=== PATIENT | female | born 1955 | race Caucasian/White ===

== ENCOUNTER 2018-10-18 11:15 | Outpatient (REF) | payer BC, SELFPAY ==
--- NOTE | 2018-10-18 17:10 | PAPFT_PTH ---
PATIENT: Estephania Rice [facility] U#:[id number] AGE/SX: 63/F ROOM: RE10/18/[address]: Juaquin Iniguez : 1955 BED: DIS: 10/18/2018 SPEC #: [id number] RECD: 10/22/18 13:05 STATUS: KATHERYN REJose Rafael #: [id number] JONATAN: 10/18/18 17:[address]: Juaquin Iniguez DEPT: [facility] Cytology RECD BY: Jackie Degroot Tissues: 1 - CX/ENDOCX FOR PAP SMEARS Procedures: PAP THIN PREP/UVM Screening Comments: [id number] (UNSATISFACTORY FOR EVALUATION)
== END 2018-10-18 11:35 ==
LOC: NCHCN 11:15
PROVIDERS: PCP Internal Medicine; Visit Provider Internal Medicine
DX: Z12.4 Encounter for screening for malignant neoplasm of cervix (principal); Z01.419 Encounter for gynecological examination (general) (routine) without abnormal findings; Z11.51 Encounter for screening for human papillomavirus (HPV)
CPT/HCPCS: 88142; 87624

== ENCOUNTER 2018-10-22 09:53 | Outpatient (REF) | payer BC, SELFPAY ==
[2018-10-22 20:57] LABS: TSH 1.89 uIU/mL (0.358-3.74)
== END 2018-10-22 10:13 ==
LOC: NCHCN 09:53
PROVIDERS: PCP Internal Medicine; Visit Provider Internal Medicine
DX: F41.9 Anxiety disorder, unspecified (principal); Z00.00 Encounter for general adult medical examination without abnormal findings
CPT/HCPCS: 84443

== ENCOUNTER 2020-09-17 16:44 | Outpatient (REF) | payer MEDICARE, BC, SELFPAY ==
[2020-09-17 18:15] LABS: HCT 42.2 % (36.0-46.0); HGB 13.8 g/dL (11.2-15.7); MCH 29.7 pg (27.0-33.0); MCHC 32.7 % (32.0-36.0); MCV 90.8 fL (80-95); Platelet Count 364 10^3/uL (130-400); RBC 4.65 10^6/uL (3.93-5.22); RDW 11.9 % (11.7-14.6); RDW-SD 39.7 fL; WBC 7.35 10^3/uL (4.4-10.8)
[2020-09-17 18:17] LABS: ESR 36 mm//hr (0-30)
[2020-09-17 18:35] LABS: ALT 23 U/L (14-59); AST 14 U/L (15-37); Albumin 3.4 g/dL (3.4-5.0); Alkaline Phosphatase 69 U/L (46-116); Anion Gap 7.3 mmol/L (3-11); BUN 18 mg/dL (7-18); Bilirubin, Total 0.2 mg/dL (0.2-1.0); C-Reactive Protein 0.85 mg/dL (0.0-0.3); CO2 30.7 mmol/L (21.0-32.0); CREATININE 0.9 mg/dL (0.55-1.02); Chloride 106 mmol/L (98-107); Glucose 89 mg/dL (74-106); Potassium 4.6 mmol/L (3.5-5.1); Sodium 144 mmol/L (136-145); TSH 1.43 uIU/mL (0.36-3.74); Total Protein 6.7 g/dL (6.4-8.2)
== END 2020-09-17 16:45 | disposition home or self-care (01) ==
LOC: NCHCN 16:44
PROVIDERS: PCP Internal Medicine; Visit Provider Internal Medicine
DX: M35.3 Polymyalgia rheumatica (principal); R53.83 Other fatigue
CPT/HCPCS: 80053; 85027; 85652; 84443; 86140

== ENCOUNTER 2020-10-28 09:43 | Outpatient (REF) | payer MEDICARE, BC, SELFPAY ==
--- OUTSIDE RECORDS SUMMARY | 2020-10-28 09:47 | XMS_ITS ---
:1955 Author Care Team Providers Name Role Phone JJ JACOME MD Primary Care Provider [phone] DANYEL BETH MD General Surgeon [phone] Allergies Code Code System Name Reaction Severity Status Onset 723 RxNorm Amoxicillin ? ? Active ? Sulfa Hives ? Active ? (Sulfonamide Antibiotics) Medications Name Status Start Date Stop Date ? ? cholecalciferol (vitamin D3) Completed ? 1000 units daily Estrace 0.01% (0.1 mg/gram) vaginal cream Completed 201501/22/2017 applicator Cream Cream: daily ibuprofen 800 mg tablet Active 10/13/2020 Not avai lable Take 1 tablet 3 times a day by oral route as needed. Prempro 0.3 mg-1.5 mg tablet Completed 10/25/200406/2004 Temovate 0.05 % topical ointment Completed 06/22/2014 09/03/2014 1 (one) Application(s): As directed Vitamin C 500 mg chewable tablet Completed ? 10/13/2020 Take 2 tablets every day by oral route. Notes: Med Rec Updated 10/13/2020 -laf. No Maintenance home meds Problems Name Status Onset Date Source ? Anxiety Disorder Active 12/05/2018 ? Impacted Cerumen Active 12/05/2018 ? 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 Bronchitis Active 12/05/2018 ? Disorder of Urinary Tract Active 12/05/2018 ? Vitiligo Active 12/05/2018 ? Vasovagal Syncope Active 12/05/2018 ? Genuine Stress Incontinence Active ? Hist ory Menopausal Symptom Active ? History Disorder of Bone Active ? History Specialized Medical Examination Active ? History Procedures Date Name Performed by ? 01/02/2019 Colonoscopy Information not avai lable Notes: screening colonoscopy; 003 normal colonoscopy ? Appendectomy Information not avai lable Notes: Age 19 Results Lab Results Date Name Specimen Result Interpretation Description Value Range Status Address ? 10/13/2020 EKG Done by ? No ? ? ? N [facility] ED observation Hospi shay Lab recorded. (Telegraph Lineman al): [address] 01/22/2017 Pap Test, MISC ? Hpv see ? Final [facility] Thinprep, report Hospita l Lab Cervical (Interna l): [address] ? ? MISC ? Pap see ? Final [place] try report [facility] L [facility] (Internal) : [address] ? ? MISC ? Report (added) ? Corrected [place] results Hospital Lab below (Internal) : [address] Past Encounters None recorded. Social History Tobacco Smoking Status Never Smoker Vaccine List Notes: Moderna #2 on 10/12/20 Plan of Care Reminders Provider Appointments None ? ? recorded. Lab None ? ? recorded. Referral None ? ? recorded. Procedures None ? ? recorded. Surgeries None ? ? recorded. Imaging None ? ? recorded. Vitals 12/12/2018 12:45PM Office 15 Height 161.29 cm 10/21/2018 Height Weight BMI Blood Pressure 161.29 cm 56.7 kg 21.8 kg/m2 112/70 mm[Hg] 01/22/2017 Height Weight Blood Pressure 160.66 cm 56.7 kg 108/68 mm[Hg] 01/08/2017 Weight Blood Pressure 56.88 kg 148/88 mm[Hg] 09/02/2015 Height Weight Blood Pressure 160.66 cm 55.79 kg 124/80 mm[Hg] 09/03/2014 Height Weight Blood Pressure 160.66 cm 57.15 kg 118/60 mm[Hg] 08/27/2013 Height Weight Blood Pressure 160.66 cm 56.06 kg 110/60 mm[Hg] 08/21/2012 Height Weight Blood Pressure 160.66 cm 56.15 kg 110/62 mm[Hg] 08/17/2011 Height Weight Blood Pressure 160.66 cm 57.61 kg 100/64 mm[Hg] 08/11/2010 Height Weight Blood Pressure 161.29 cm 57.61 kg 112/64 mm[Hg] 08/04/2009 Weight Blood Pressure 57.15 kg 112/62 mm[Hg] 06/30/2008 Height Weight Blood Pressure 161.29 cm 58.06 kg 110/64 mm[Hg] 10/23/2006 Weight Blood Pressure 54.43 kg 100/60 mm[Hg] 10/02/2005 Height Weight Blood Pressure 162.56 cm 54.43 kg 100/60 mm[Hg] 09/30/2004 Height Weight Blood Pressure 162.56 cm 53.52 kg 100/66 mm[Hg]
[2020-10-29 11:17] LABS: Lyme Ab w Rflx to Lyme Confirm Negative (Negative)
== END 2020-10-28 09:44 | disposition home or self-care (01) ==
LOC: NCHCN 09:43
PROVIDERS: PCP Internal Medicine; Visit Provider Internal Medicine
DX: M79.7 Fibromyalgia (principal)
CPT/HCPCS: 86618

== ENCOUNTER 2020-11-18 16:52 | Outpatient (REF) | payer MEDICARE, BC, SELFPAY ==
[2020-11-18 18:18] LABS: ESR 34 mm/hr (0-30); HCT 44.3 % (36.0-46.0); HGB 14.3 g/dL (11.2-15.7); MCH 28.1 pg (27.0-33.0); MCHC 32.3 % (32.0-36.0); MCV 87.2 fL (80-95); Platelet Count 395 10^3/uL (130-400); RBC 5.08 10^6/uL (3.93-5.22); RDW 11.9 % (11.7-14.6); RDW-SD 38.6 fL; WBC 8.66 10^3/uL (4.4-10.8)
[2020-11-18 18:24] LABS: C-Reactive Protein 1.01 mg/dL (0.0-0.3); Magnesium 2.2 mg/dL (1.8-2.4)
[2020-11-18 18:34] LABS: Iron 24 ug/dL (50-170); Total Iron Binding Capacity 236 ug/dL (250-450); Transferrin Sat 10 % (15-50)
[2020-11-19 16:17] LABS: Rheumatoid Factor <8.6 IU/mL (<12.0)
[2020-11-19 19:33] LABS: Creatine Kinase 60 U/L (26-192)
[2020-11-22 09:39] LABS: Cyclic Citrullinated Peptide <2.5 U/mL (<5.0)
[2020-11-22 15:25] LABS: ANA Interpretation Positive (Negative); ANA Titer Pattern 1:160 Homogeneous
== END 2020-11-18 16:53 | disposition home or self-care (01) ==
LOC: NCHCN 16:52
PROVIDERS: PCP Internal Medicine; Visit Provider Internal Medicine
DX: M79.7 Fibromyalgia (principal); M35.3 Polymyalgia rheumatica; R03.0 Elevated blood-pressure reading, without diagnosis of hypertension; G44.209 Tension-type headache, unspecified, not intractable; R53.1 Weakness; R79.89 Other specified abnormal findings of blood chemistry
CPT/HCPCS: 82550; 85027; 85652; 86200; 83540; 83550; 83735; 86038; 86140; 86431

== ENCOUNTER 2021-03-03 08:42 | Outpatient (REF) | payer MEDICARE, BC, SELFPAY ==
[2021-03-02 21:37] LABS: Glucose 148 mg/dL (74-106)
== END 2021-03-03 08:43 | disposition home or self-care (01) ==
LOC: NCHCN 08:42
PROVIDERS: PCP Internal Medicine; Visit Provider Internal Medicine
DX: I10 Essential (primary) hypertension (principal); R73.03 Prediabetes; M35.3 Polymyalgia rheumatica
CPT/HCPCS: 82947; 86341; 83036

== ENCOUNTER 2021-07-06 15:25 | Outpatient (REF) | payer MEDICARE, BC, SELFPAY ==
--- OUTSIDE RECORDS SUMMARY | 2021-07-06 15:29 | XMS_ITS ---
:1955 Author Care Team Providers Name Role Phone JJ JACOME MD Primary Care Provider [phone] DANYEL BETH MD General Surgeon [phone] Allergies Code Code System Name Reaction Severity [...] Description Value Range Status Address ? 10/13/2020 CBC W/ BLD High Wbc 11.9 10*3/uL 5.0-10.0 Final [place] Diff 10*3/uL [facility] L [facility] (Internal) : [address] ? ? BLD ? Rbc 5.17 10*6/uL 4.10-5.30 Final N orth 10*6/uL [facility] Hospital L [facility] (Internal) : [address] ? ? BLD ? Hgb 14.9 g/dL 12.0-16.0 Final Nort h g/dL [facility] (Internal) : [address] ? ? BLD ? Hct 45.9 % 37.0-47.0 Final [place] % [facility] (Internal) : [address] ? ? BLD ? Mcv 88.8 fL 80.0-96.0 Final [place] fL [facility] (Internal) : [address] ? ? BLD ? Mch 28.8 pg 26.0-32.0 Final [place] pg [facility] (Internal) : [address] ? ? BLD ? Mchc 32.5 g/dL 31.0-35.0 Final Nort h g/dL [facility] (Internal) : [address] ? ? BLD ? Rdw 11.9 % 11.5-14.5 Final [place] [facility] (Internal) : [address] ? ? BLD ? Plt 339 10*3/uL 130-450 Final Nort h 10*3/uL [facility] (Internal) : [address] 10/13/2020 CMP, Serum S High g/r 159 mg/dL 74-106 Final [place] or Plasma mg/dL [facility] (Internal) : [address] ? ? S High Bun 18 mg/dL 7-17 Final [place] mg/dL [facility] (Internal) : [address] ? ? S ? Crea 0.70 mg/dL 0.52-1.04 Final Nor th mg/dL [facility] (Internal) : [address] ? ? S ? Ca 9.6 mg/dL 8.4-10.2 Final [place] mg/dL [facility] (Internal) : [address] ? ? S ? Na 141 mmol/L 137-145 Final [place] mmol/L [facility] (Internal) : [address] ? ? S ? K 4.1 mmol/L 3.5-5.1 Final [place] mmol/L [facility] (Internal) : [address] ? ? S ? Cl 102 mmol/L 98-107 Final [place] mmol/L [facility] (Internal) : [address] ? ? S ? Tco2 27.0 mmol/L 22.0-30.0 Final No rth mmol/L [facility] (Internal) : [address] ? ? S ? Tp 7.4 g/dL 6.3-8.2 Final [place] g/dL [facility] (Internal) : [address] ? ? S ? Alb 4.3 g/dL 3.5-5.0 Final [place] g/dL [facility] (Internal) : [address] ? ? S ? Tbil 0.7 mg/dL 0.2-1.3 Final [place] mg/dL [facility] (Internal) : [address] ? ? S ? Alp 69 U/L 38-126 Final [place] U/L [facility] L [facility] (Internal) : [address] ? ? S ? Alt 18 U/L 9-52 U/L Final [place] (Sgpt) [facility] L [facility] (Internal) : [address] ? ? S High Ast 48 U/L 14-36 U/L Final [place] (Sgot) [facility] (Internal) : [address] t 10/13/2020 Differenti BLD High Polys 94 % 40-75 % Final N orth al, [place] [facility], Hospital Lab Blood (Internal) : [address] ? ? BLD ? Bands 0 % 0-5 % Final [facility] L [facility] (Internal) : [address] ? ? BLD Low Lymphs 4 % 20-50 % Final [facility] L [facility] (Internal) : [address] ? ? BLD Low [place] 1 % 2-10 % Final [facility] (Internal) : [address] ? ? BLD ? Eos 0 % 0-6 % Final [facility] (Internal) : [address] ? ? BLD ? Baso 1 % 0-1 % Final [facility] Hospital L [facility] (Internal) : [address] ? ? BLD ? Atyp 0 % ? Final [facility] Hospital L [facility] (Internal) : [address] ? ? BLD ? Plts, adequate adequate Final [place] Est. [facility] (Internal) : [address] ? ? BLD ? RBC normal normal Final [place] Morpholog [facility] y Hospital L ab (Internal) : [address] 10/13/2020 Neutrophil BLD ? Anc-manu 11.19 ? Final [place] Count, al 10*3/uL [facility] Lab (Anc), (Internal) : Blood [address] 10/13/2020 Nlr-manual BLD High Nlr - 23.50 0.00-3.20 Final [facility] Hospital L [facility] (Internal) : [address] 10/13/2020 Respirator FLUID ? Final microbiology ? Fin al [place] y Virus results [facility] (Internal) : [address] 10/13/2020 EKG Done ? No ? ? ? [facility] on Hospital L ab recorded. (Exhibit Designer al): [address] 01/22/2017 Pap Test, MISC ? Hpv see report ? [facility] [place] [facility] [address] ? ? MISC ? Pap see report ? Final [facility] Hospital L [facility] (Internal) : [address] ? ? MISC ? Report (added) ? Corrected [place] results [facility] below Hospital L ab (Internal) : [address] Past Encounters None recorded. Social History Tobacco Smoking Status Never Smoker Vaccine List Notes: Tonia #2 on 10/12/20 Plan of Care Reminders [...]
[2021-07-06 22:09] LABS: Abs Immature Grans 0.05 10^3/uL (0.0-0.06); Absolute Basophil Count 0.05 10^3/uL (0.0-0.2); Absolute Eosinophil Count 0.05 10^3/uL (0.0-0.7); Absolute Lymphocyte Count 1.17 10^3/uL (1.2-3.4); Absolute Monocyte Count 0.46 10^3/uL (0.1-0.8); Basophils % 0.5; ESR 11 mm/hr (0-30); Eosinophils % 0.5; HGB 16.2 g/dL (11.2-15.7); Immature Grans % 0.5; Lymphocytes % 11.1; MCH 29.5 pg (27.0-33.0); MCHC 31.8 % (32.0-36.0); MCV 92.9 fL (80-95); MPV 9.4 fL (8.0-11.0); Monocytes % 4.3; Neutrophils % 83.1; Nucleated RBC 0 %; Platelet Count 298 10^3/uL (130-400); RBC 5.49 10^6/uL (3.93-5.22); RDW 12.5 % (11.7-14.6); WBC 10.58 10^3/uL (4.4-10.8)
[2021-07-06 22:41] LABS: C-Reactive Protein 0.08 mg/dL (0.0-0.3)
== END 2021-07-06 15:26 | disposition home or self-care (01) ==
LOC: NCHCN 15:25
PROVIDERS: PCP Internal Medicine; Visit Provider Internal Medicine
DX: I10 Essential (primary) hypertension (principal); M35.3 Polymyalgia rheumatica
CPT/HCPCS: 85652; 85025; 86140

== ENCOUNTER 2021-07-15 13:34 | Outpatient (REF) | payer MEDICARE, BC, SELFPAY ==
[2021-07-15 19:14] LABS: HCT 47.9 % (36.0-46.0); HGB 15.1 g/dL (11.2-15.7); MCH 28.9 pg (27.0-33.0); MCHC 31.5 % (32.0-36.0); MCV 91.8 fL (80-95); MPV 9.2 fL (8.0-11.0); Platelet Count 282 10^3/uL (130-400); RBC 5.22 10^6/uL (3.93-5.22); RDW 12.7 % (11.7-14.6); WBC 10.18 10^3/uL (4.4-10.8)
[2021-07-19 10:24] LABS: Erythropoietin 5.8 mIU/mL (2.6 - 18.5)
== END 2021-07-15 13:35 | disposition home or self-care (01) ==
LOC: NCHCN 13:34
PROVIDERS: PCP Internal Medicine; Visit Provider Internal Medicine
DX: I10 Essential (primary) hypertension (principal); D75.1 Secondary polycythemia
CPT/HCPCS: 82668; 85027

== ENCOUNTER → 2021-09-19 00:43 | Outpatient (CLI) | payer MEDICARE, BC, SELFPAY ==
--- NOTE | 2021-09-19 09:15 | DI.NM_ITS ---
APPROVED REPORT Exam: Exercise Treadmill Patient Location: Out-Patient Room/Bed: Stress Nurse: Becca Callaway RN Ordering Provider:JJ JACOME, Contact Number: [phone] BMI: 22.67 Baseline Rhythm: Sinus Rhythm Comment: T wave inversion noted in lead aVL Indications: CHEST PAIN, H/O PAROXYSMAL SVT, HTN Medical History Medical History: Vasodepressor syncope, Anxiety, HTN, Prediabetes, Polymyalgia rheumatica, SVT Cardiac Medications: Pantoprazole, Metoprolol succinate Allergies: Sulfa, amoxicillin Cardiac Risk Factors: FHX of CAD, HTN Previous Cardiac Procedures: None Pretest Chest Pain Characteristics: None Exercise History: Physically active Physical Disabilities: None Lung Sounds: Clear to auscultation Heart Sounds: Regular Stress Test Details Test: Exercise stress testing was performed using a Doe protocol. Nuclear Acquisition: Rest Tc-99m/Stress Tc-99m 1 day Rest Isotope: Tc-99m Sestamibi. Dose: 10.0 Date: 09/19/2021 Injection Time: 0915 Stress Isotope: Tc-99m Sestamibi. Dose: 32.0 Date: 09/19/2021 Injection Time: 1039 HR Resting HR Supine: 64 bpm Max Heart Rate (APMHR): 153.117317 bpm Resting HR Standin bpm Target HR (85% APMHR): 130.737089 bpm Max HR Achieved: 154 bpm % of APMHR: 100.65 Recovery HR: 87 bpm HR response to stress: Normal HR response to stress Comment: Metoprolol succinate held for 36 hours. BP Resting BP Supine: 164/86 mmHg Resting BP Standin/82 mmHg Max BP: 212/68 mmHg Recovery BP: 518/80 mmHg BP response to stress: Normal blood pressure response to stress. Comment: Hypertensive at baseline. ECG Resting ECG: Sinus Rhythm Ectopy: PVCs Comment: T wave inversion noted in lead aVL Stress ECG: Sinus Tachycardia ST Change: No significant ST segment changes noted, Arrhythmia: rare PAC, PVCs Recovery ECG: Sinus Rhythm Recovery ST Change: No significant ST segment changes noted Recovery Arrhythmia: PVCs, couplets Clinical Reason for Termination: Fatigue Stress Symptoms: General Fatigue Exercise duration: 7 min45 sec Highest Stage Reached: Stage 3: 3.4 mph at 14% grade. Exercise capacity: 9.76 METs Hale Treadmill Score: 7 Rate Pressure Product: 06475 Stress ECG Conclusion 1. Resting electrocardiogram was within normal limits 2. Patient exercised on the Doe protocol and completed a workload of 9.76 METS, stopping due to fat igue 3. Normal hemodynamic response to exercise. The patient achieved 100% of predicted heart rate for ag e 4. There was no electrocardiographic evidence of myocardial ischemia 5. Premature ventricular contractions were seen 6. See MPI report Hale Treadmill Score is 7 which is Low risk. Stress Test Summary STAGE Time (mins) Speed (mph) Grade (%) HR BP SYMPTOMS METS Supine 64 164/86 Standing 70 152/82 1 3 1.7 10 114 188/88 4.6 2 6 2.5 12 143 204/90 7 1 min recovery 133 212/68 3 min recovery 95 200/74 6 min recovery 87 158/80 MPI Conclusion Myocardial perfusion is normal without evidence of ischemia or prior infarction EF 79%, normal wall motion Radiologist Interpretation Radiologist agrees with Criminal Records Technician's Interpretation. Radiologist Interpretation by: Ney Pardo MD Interpretation Date/Time: 09/21/2021 13:44:12
== END ==
PROVIDERS: PCP Internal Medicine; Visit Provider Internal Medicine
DX: R07.89 Other chest pain (principal); I10 Essential (primary) hypertension
CPT/HCPCS: 78452; 93016; 93018; 93017

== ENCOUNTER 2021-10-19 09:06 | Outpatient (REF) | payer MEDICARE, BC, SELFPAY ==
[2021-10-19 21:45] LABS: Abs Immature Grans 0.02 10^3/uL (0.0-0.06); Absolute Basophil Count 0.05 10^3/uL (0.0-0.2); Absolute Eosinophil Count 0.12 10^3/uL (0.0-0.7); Absolute Lymphocyte Count 2.35 10^3/uL (1.2-3.4); Absolute Monocyte Count 0.66 10^3/uL (0.1-0.8); Absolute Neutrophil Count 4.09 10^3/uL (1.2-6.7); Basophils % 0.7; Eosinophils % 1.6; HCT 46.5 % (36.0-46.0); Immature Grans % 0.3; Lymphocytes % 32.2; MCHC 32.3 % (32.0-36.0); MCV 93 fL (80-95); MPV 9.7 fL (8.0-11.0); Monocytes % 9.1; Neutrophils % 56.1; Platelet Count 288 10^3/uL (130-400); RDW 14.4 % (11.7-14.6); RDW-SD 48.1 fL; WBC 7.29 10^3/uL (4.4-10.8)
[2021-10-19 21:49] LABS: ESR 8 mm/hr (0-30)
[2021-10-19 22:08] LABS: ALT 31 U/L (14-59); AST 12 U/L (15-37); Albumin 3.8 g/dL (3.4-5.0); Alkaline Phosphatase 48 U/L (46-116); Bilirubin, Direct 0.1 mg/dL (0.0-0.2); Bilirubin, Total 0.3 mg/dL (0.2-1.0); Total Protein 6.4 g/dL (6.4-8.2)
== END 2021-10-19 09:07 | disposition home or self-care (01) ==
LOC: NCHCN 09:06
PROVIDERS: PCP Internal Medicine; Visit Provider Internal Medicine
DX: M35.3 Polymyalgia rheumatica (principal)
CPT/HCPCS: 80076; 85652; 85025; 86140

== ENCOUNTER 2021-11-18 16:23 | Outpatient (REF) | payer MEDICARE, BC, SELFPAY ==
--- OUTSIDE RECORDS SUMMARY | 2021-11-18 16:26 | XMS_ITS | Encounter Summary ---
:1955 Author Care Team Providers Name Role Phone Juaquin Iniguez MD Primary Care Provider [phone] Arik Iniguez MD Community Services Officer [phone] Mj Cota MD General Surgeon [phone] Reason for Visit SVT - Supraventricular Tachycardia; Ches t Pain; New Consult Assessment and Plan Assessment Note Date: October 14, 2021 Referring: Darius Clarke Re: Juaquin Iniguez 66-year-old woman Problems: 1. Syncope. Vagal etiology described in chart. She has a history of occasional lifelong fainting. These episodes preceded by a recognizable prodrome. Most recent episode of syncope: September. 12 hours after receiving her second COVID vaccination. She got up at 2 AM to go to the bathroom. She did not feel right. Bathroom door and hallway are tom r the stairs. She managed to get out of the bathroom however fell down the stairs. Regain consciousness at the bottom of the stairs. Suffered a head laceration. Fainted again in the ER while she was receiving scalp brian. No subsequent events. 2. SVT. Presents to ER August 22, 2021, near [facility], with chest pain and tachycardia. Symptoms started the afternoon prior to ER evaluation. Patient describes a burning sensation. Discomfort substernal. No radi ation. No nausea or diaphoresis. Patient also described a skipping sensation, a steady faster beat. Apparently in the ER patient was in SVT with heart rate 181 bpm. Believe any rhythm strips were retained from this, no EKG obtained. Patient received metoprolol 5 mg IV x1 and converted to sinus rhythm. Sinus rhythm with ventricular trigeminy described in the ER also. She has noted palpitations about 3 to 4 years. She would describe episodes of rapid heart rate lasting 1 to 2 minutes on the order of 1 or so times per month. This apparently proved following diagnosis of PMR. Episode on August 22 was the most protracted episode of palpitation she has experienced. 3. Polymyalgia rheumatica. Diagnosed with polymyalgia rheumatica ab out 1 year ago. Diffuse joint pain. Her activity profile suffered considerably because of this. She became essentially sedentary, busy around the house as described above. She feels that PMR was associated with C OVID vaccine. She is followed by rheumatology in [place]. Has been treated with steroids, has been started on methotrexate. 4. GERD. She has described GERD in the past, burn ing that comes up into her throat. This is similar to what was described on August 22. Late July 2021: She described an episode of dysphagia. She had difficulty swallowing. Symptoms came in past quite quickly. No recurrence. HPI: October 14, 2021. Patient continues t o live with her . 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 She has a very athletic background. 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 She was apparently slated to participate in the [employer] Olympics years ago, scheduling issues precluded her participation in that regard. She is staying busy around the house. Wo rking in the garden. No history of chest discomfort. No short ness of breath. Denies PND orthopnea edema. She does not have a snoring history per se. Palpitations as above. No presyncope or syncope. No bleeding problems. She feels her palpitations have improved considerably since starting beta- melodie. She has had nothing in the way of protracted palpitations or tachycardia. DATA: Cardiac risk factors: Negative tobacco. Positive family history, father [place] aged 65. Positive hypertension. Negative diabetes. Negative cholesterol. Social history: Activity profile as abov e. Negative tobacco. Occasional alcohol. Past medical history: Anxiety. Bronchiti s. UTI. Vertigo. Review of systems: A 10-point review of systems was obtained. Pertinent positives as described in HPI, all others negative. Allergies: Amoxicillin Contrast allergies: Echo: August 23, 2021. LVEF 65-70%. Normal size. No segmental wall motion abnormality. Right ventricle normal. Diastolic indices appear normal for age, no evidence elevated left-sided filling pressures. S inus rhythm. Left atrium normal 23 (34). Right atrium normal. Trace AI. 1?2+ MR. Regurgitant volume 5 mL, regurgitant fraction 11%. ERO 0.1. 1+ TR. Pulmonary pressure 25-35 mmHg. Trivial PI. Mercedez cardium normal. Aortic root normal 3.2. Ascending normal 3.2. Arch normal 2.3. No coarctation. No PDA. IVC normal. E primed 6, 6 (7, 10). E/E prime average 11.2 (14). TR max 2.5 (2.8). Cardiac MRI: Stress: September 19, [address]. [facility]. Amb ulated 7 minutes 45 seconds on the Doe protocol. Stopped because of fatigue. No EKG changes. Normal hemodynamics (exercise blood pressure 212 mmHg systolic). No rmal perfusion. LVEF 79%. No segmental w all motion abnormalities. Negative ischemia. [facility]: Holter: Event monitor: August 23-2021. Baselin e rhythm sinus. Rare single PAC. 16 burst SVT, longest 10 beat duration, fastest 203 bpm. No atrial fibrillation. Occasional single PVC, 1.3% total beat. Rare cou plet. No VT. No significant bradycardia/ block/pause. 3 seconds. No triggered events. No symptoms. Average rate sinus: 72 bpm, range 40-131 bpm. Telemetry: EKG: August 22, 2021. Sinus rhythm 85 bpm. Occasional single PVC. Normal axis. No acute change. PVCs appear to be monomorphic. QT/QTc 372/443 ms. Telemetry August 2021: This rhythm predom inantly with occasional PACs and PVCs. Specific telemetry strips: August 23, 2021 , 0729 hrs. Sinus rhythm with occasional PVCs and a ventricular bigeminal pattern. August 23, 2021, 7:28 AM. Sinus rhythm wit h ventricular couplet followed by SVT x5 beats, regular narrow complex tachycardia at approximately 150s bpm, appears to be short RP tachycardia. August 23, 2021, 7:28 AM. Sinus rhythm wit h ventricular couplet followed by 6 beat burst narrow complex SVT. Likely short RP tachycardia. August 23, 2021. 7:28 AM sinus rhythm with ventricular couplet, followed by SVT as described above 6 beat duration. These strips are by about 30 s econd intervals. 7:29 AM. Sinus rhythm with frequent vent ricular couplets. Radiology: August 23, 2021. Chest x-ray. N o acute cardiopulmonary abnormality. October 13, 2020. CT head brain without co ntrast. No acute hemorrhage or infarct. September 27, 2020. CT head with without con trast. No acute abnormality. Sequelae of chronic small vessel ischemic gliosis within the bilateral cerebral white matter. Punctate focus high attenuation anterio r/superior aspect third ventricle. May r epresent tiny colloidal cyst. . Pulmonary function test: Labs: August 23, 2021. Troponin 10.2, 34, 45.6, 38.8 (51). BUN/creatinine 22/0.7. Sodium 148, chloride 110. Lites normal otherwise. CBC normal. Sed rate normal 1.0. COVID negative. CRP normal 1.6. Free T4 0.9. TSH elevated 5.2. Magnesium elevated 2.6. August 22, 2021. Troponin 10. ESR normal 1 .0. CRP normal 1.6. Free T4 normal 0.88. TSH elevated 5.2. Magnesium elevated 2.6. BUN/creatinine 27/0.8. Lites normal. AST/ALT normal. Medications: Metoprolol succinate 50 mg daily Pantoprazole, prednisone, vitamin D3, me thotrexate Exam: Blood pressure: 152/78 Heart rate: 69 Oxygen saturation: 99% room air Weight: 127.5 pounds, General: Patient alert oriented appropri ate conversant. HEENT: JVP 7 cm sitting. Heart: Regular rate and rhythm S1-S2, no murmur gallop or rub Lungs: Clear to auscultation bilaterally . Abdomen: Soft. Nontender. Nondistended. No sacral edema. Extremities: No lower extremity edema bi laterally. Assessment: 1. SVT. Patient with history of brief palpitatio ns times several years duration. Episode of protracted palpitations grover red with previous episodes on admission August 22-2021. SVT with rates up to 180 bpm described in ER. Unclear as to total duration of SVT. Conversion to sinus rhythm with administration of IV beta-melodie. Since admission heart rates 55-85 bpm. At around 7:30 AM September 06, several brie f bursts of SVT (5?6 beat duration). Interestingly these bursts appeared to be preceded by ventricular couplets. Short RP tachycardia suggested with rates approximate 150-160 bpm. Bursts resolve with slight pause. These salvos of SVT are by several seconds from one another. Normal cardiac anatomy and function on e cho August 2021. Event monitor August 2021: Sinus rhythm b aseline. Rare PAC. 16 brief burst SVT. Asymptomatic. 1.3% PVC. Rare couplet. No VT. No bradycardia. Rate 72 bpm. Maintained on beta-melodie. Describes ve ry good clinical response to beta-melodie. I think she would benefit from sleep stephanie luation. We will arrange. With residual SVT and ventricular ectopy described on event monitor, will increase metoprolol succinate from 50 mg daily to 75 mg daily. She keeps a close eye on her vital signs. If her heart rate becom es too low or if she experiences side ef fects with increased beta-melodie she will let us know. We will plan on repeating event monitor 6 months. 2. Chest pain. Atypical sounding chest discomfort. I do wonder if this is GERD type discomfort. He has been started on PPI. I think this is appropriate and could be continued for several weeks. Negative troponins in context of SVT. Tr oponins did rise and fall slightly. I suspect this secondary to tachycardia. Patient maintains reasonable functionali ty. She is starting to become more active as her PMR has improved slightly. No exertional symptoms. ETCL September 2021: Normal perfusion. 3. Question sleep apnea. As above. 4. PVCs. PVCs noted on telemetry during August admission as above. 0.2% PVCs on event monitor August 2021. N o [place]. Normal LV function on echo August 2021. N ormal MPI September 2021. Patient with syncopal history as above. I think this is neurocardiogenic. Will increase beta-melodie as above. Sle ep evaluation. Repeat monitor as above. Thank you for allowing me to participate in this patient's care. Sincerely, Arik Iniguez MD, FACC Disposition: We will see her back 6 yunior hs after monitor Time: 20-minute [id number] interview w ith patient. 10 minutes chart review, development, completion. Discussion Note: None recorded.Patient educational handouts: No information available. Plan of Care Reminders Provider Appointments Follow up 30 04/13/2022 10:15AM Arik Iniguez MD ? Return to Office on or around 01/02/2029 Leonard Cota MD Lab None recorded. ? ? Referral None recorded. ? ? Procedures None recorded. ? ? Surgeries None recorded. ? ? Imaging None recorded. ? ? Medications Name Start Date ? ? metoprolol succinate ER 25 mg tablet,extended release 24 hr 08/23/2021 Take 3 tablets every day by oral route for 30 days. pantoprazole 40 mg tablet,delayed release 08/23/2021 Take 1 tablet every day by oral route for 42 days. prednisone 5 mg tablet 08/23/2021 Take 1 tablet every day by oral route. Vitamin D3 25 mcg (1,000 unit) chewable tablet 022 Take 2 tablets every day by oral route. Notes: med rec completed 08/23/2021 [facility] JLD, pharmD Medications Administered None recorded. Vitals Weight Blood Pressure 57.83 kg (1) 152/78 mm[Hg] (2) 165/78 mm[Hg] Results Lab Results None recorded. Allergies Code Code System Name Reaction Severity Onset 723 RxNorm Amoxicillin ? ? ? Sulfa (Sulfonamide Antibiotics) Hives ? ? Notes: No seafood/contrast allergy Problems Name Status Onset Date Source ? Anxiety Disorder Active 12/05/2018 ? Impacted Cerumen Active 12/05/2018 ? 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 Bronchitis Active 12/05/2018 ? Disorder of Urinary Tract Active 12/05/2018 ? Vitiligo Active 12/05/2018 ? Vasovagal Syncope Active 12/05/2018 ? Paroxysmal Supraventricular Tachycardia Active 08/24/19 22 ? Gastroesophageal Reflux Disease Active 08/23/2021 ? Genuine Stress Incontinence Active ? Hist ory Menopausal Symptom Active ? History Disorder of Bone Active ? History Specialized Medical Examination Active ? History Procedures Date Name Performed by ? 01/02/2019 Colonoscopy Information not avai lable Notes: screening colonoscopy; 08/07/19 03 normal colonoscopy ? Appendectomy Information not avai lable Notes: Age 19 10/14/2021 Event Monitor [facility] Cardio pulmonary [address] [place] [address] (Work Place) Vaccine List Notes: Moderna #2 on 10/12/20 Social History Tobacco Smoking Status Never Smoker What is your level of alcohol consumption? Occasional Have you used IV drugs? N What is your code status? 0 Work related injury? N What was the date of your most recent tobacco 10/13/2020 screening? Do you have an advanced directive? N Do you or have you ever used e-cigarettes or Never used elec tronic cigarettes vape? Do you feel safe at home? Y Family History Relation Problem Onset Age of Age Notes Father Myocardial infarction (No Information) 65 al coholic Mother Malignant neoplasm of uterus (No Information) 47 (No Notes) Brother Hypertensive disorder (No Information) N/A (N o Notes) Functional Status Unknown. Past Encounters 10/14/2021 Arik Iniguez MD: [address] [facility] [place] [address], Ph. History of Present Illness None recorded. Review of Systems None recorded. Physical Exam None recorded.
--- OUTSIDE RECORDS SUMMARY | 2021-11-18 16:26 | XMS_ITS ---
:1955 Author Care Team Providers Name Role Phone JJ JACOME MD Primary Care Provider [phone] DANYEL BETH MD General Surgeon [phone] ARIK INIGUEZ MD Corporate Security Officer [phone] Allergies Code Code System Name Reaction Severity Status Onset 723 RxNorm Amoxicillin ? ? Active ? Sulfa (Sulfonamide Antibiotics) Hives ? Active ? Notes: No seafood/contrast allergy Medications Name Status Start Date Stop Date ? ? cholecalciferol (vitamin D3) Completed ? 1000 units daily Estrace 0.01% (0.1 mg/gram) vaginal cream Completed 201501/22/2017 applicator Cream Cream: daily ibuprofen 800 mg tablet Completed 10/13/2020 08/24/19 Take 1 tablet 3 times a day by oral route as needed. metoprolol succinate ER 25 mg tablet,extended release 24 hr Acti ve 08/23/2021 Not available Take 3 tablets every day by oral route for 30 days. pantoprazole 40 mg tablet,delayed release Active 2021 Not available Take 1 tablet every day by oral route for 42 days. prednisone 5 mg tablet Active 08/23/2021 Not avail able Take 1 tablet every day by oral route. Prempro 0.3 mg-1.5 mg tablet Completed 10/25/200406/2004 Temovate 0.05 % topical ointment Completed 06/22/2014 09/03/2014 1 (one) Application(s): As directed Vitamin C 500 mg chewable tablet Completed ? 10/13/2020 Take 2 tablets every day by oral route. Vitamin D3 25 mcg (1,000 unit) chewable tablet Active 0 08/23/2021 Not available Take 2 tablets every day by oral route. Notes: med rec completed 08/23/2021 [facility] JLD, pharmD Problems Name Status Onset Date Source ? 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 08/23/2021 EKG Done by ? No ? ? ? N orth ED observation Count ry recorded. Hospita l Lab (Internal) : [address] 10/13/2020 CBC W/ Auto BLD High Wbc 11.9 5.0-10.0 Final [place] Diff 10*3/uL 10*3/uL [facility] L ab (Internal) : [address] ? ? BLD ? Rbc 5.17 4.10-5.30 Final [place] 10*6/uL 10*6/uL [facility] L ab (Internal) : [address] ? ? BLD ? Hgb 14.9 g/dL 12.0-16.0 Final Nort h g/dL [facility] L ab (Internal) : [address] ? ? BLD ? Hct 45.9 % 37.0-47.0 Final [facility] L ab (Internal) : [address] ? ? BLD ? Mcv 88.8 fL 80.0-96.0 Final [facility] L ab (Internal) : [address] ? ? BLD ? Mch 28.8 pg 26.0-32.0 Final [facility] (Internal[facility] : [address] ? ? BLD ? Mchc 32.5 g/dL 31.0-35.0 Final Nort h g/dL [facility] (Internal[facility] : [address] ? ? BLD ? Rdw 11.9 % 11.5-14.5 Final [facility] % [facility] (Internal) : [address] ? ? BLD ? Plt 339 130-450 Final [facility] 10*3/uL 10*3/uL [facility] (Internal) : [address] t 10/13/2020 CMP, Serum S High g/r 159 mg/dL 74-106 Final [facility] or Plasma mg/dL [facility] (Internal) : [address] ? ? S High Bun 18 mg/dL 7-17 Final [facility] mg/dL [facility] (Internal) : [address] t ? ? S ? Crea 0.70 0.52-1.04 Final [facility] mg/dL mg/dL [facility] (Internal) : [address] t ? ? S ? Ca 9.6 mg/dL 8.4-10.2 Final [facility] mg/dL [facility] (Internal) : [address] t ? ? S ? Na 141 137-145 Final [facility] mmol/L mmol/L [facility] (Internal) : [address] t ? ? S ? K 4.1 3.5-5.1 Final [facility] mmol/L mmol/L [facility] (Internal) : [address] t ? ? S ? Cl 102 98-107 Final [facility] mmol/L mmol/L [facility] (Internal) : [address] t ? ? S ? Tco2 27.0 22.0-30.0 Final [facility] mmol/L mmol/L [facility] (Internal) : [address] t ? ? S ? Tp 7.4 g/dL 6.3-8.2 Final [facility] g/dL [facility] (Internal) : [address] t ? ? S ? Alb 4.3 g/dL 3.5-5.0 Final [place] g/dL [facility] L ab (Internal) : [address] ? ? S ? Tbil 0.7 mg/dL 0.2-1.3 Final [place] mg/dL [facility] L ab (Internal) : [address] t ? ? S ? Alp 69 U/L 38-126 Final [place] U/L [facility] L ab (Internal) : [address] t ? ? S ? Alt (Sgpt) 18 U/L 9-52 U/L Final [facility] L ab (Internal) : [address] t ? ? S High Ast (Sgot) 48 U/L 14-36 U/L Final No rth [facility] L ab (Internal) : [address] 10/13/2020 Differential BLD High Polys 94 % 40-75 % Final [facility] Blood Hospital L ab (Internal) : [address] ? ? BLD ? Bands 0 % 0-5 % Final [facility] L ab (Internal) : [address] ? ? BLD Low Lymphs 4 % 20-50 % Final [facility] ab (Internal) : [address] ? ? BLD Low Kinney 1 % 2-10 % Final [facility] L ab (Internal) : [address] ? ? BLD ? Eos 0 % 0-6 % Final [facility] L ab (Internal) : [address] ? ? BLD ? Baso 1 % 0-1 % Final [facility] L ab (Internal) : [address] ? ? BLD ? Atyp Lymph 0 % ? Final [facility] L ab (Internal) : [address] ? ? BLD ? Plts, Est. adequate adequate Final [facility] L ab (Internal) : [address] ? ? BLD ? RBC normal normal Final [facility] L ab (Internal) : [address] 10/13/2020 Neutrophil BLD ? Anc-manual 11.19 ? Ivette Montano Count, 10*3/uL [facility] Lab (Anc), Blood (Int ernal): [address] 10/13/2020 Nlr-manual BLD High Nlr - 23.50 0.00-3.20 Final [place] Manual [facility] (Internal[facility] : [address] 10/13/2020 Respiratory FLUID ? Final microbiol ? Final [place] Virus Panel ogy Count ry results Hospital Lab (Internal) : [address] 10/13/2020 EKG Done by ? No ? ? ? N orth ED observation Count ry recorded. Hospita l Lab (Internal) : [address] 01/22/2017 Pap Test, MISC ? Hpv see ? Final [facility] th Thinprep, report [facility] Cervical Hospital Lab (Internal) : [address] ? ? MISC ? Pap see ? Final North report [facility] Hospital L ab (Internal) : [address] ? ? MISC ? Report (added) ? Correcte North results d [facility] below Hospital L ab (Internal) : [address] Past Encounters 10/14/2021 Arik Iniguez MD: [address] [place] [address], Ph. Social History Tobacco Smoking Status Never Smoker Vaccine List Notes: Moderna #2 on 10/12/20 Plan of Care Reminders Provider Appointments None recorded. ? ? Lab None recorded. ? ? Referral None recorded. ? ? Procedures None recorded. ? ? Surgeries None recorded. ? ? Imaging None recorded. ? ? Vitals 10/14/2021 09:45AM Consult 45 Weight Blood Pressure 57.83 kg (1) 152/78 mm[Hg] (2) 165/78 mm[Hg] 12/12/2018 12:45PM Office 15 Height 161.29 cm [...]
[2021-11-18 18:41] LABS: Abs Immature Grans 0.02 10^3/uL (0.0-0.06); Absolute Basophil Count 0.06 10^3/uL (0.0-0.2); Absolute Eosinophil Count 0.15 10^3/uL (0.0-0.7); Absolute Lymphocyte Count 1.62 10^3/uL (1.2-3.4); Absolute Monocyte Count 0.67 10^3/uL (0.1-0.8); Basophils % 0.7; Eosinophils % 1.7; HCT 47.3 % (36.0-46.0); HGB 15.5 g/dL (11.2-15.7); Immature Grans % 0.2; Lymphocytes % 18.6; MCH 30.8 pg (27.0-33.0); MCHC 32.8 % (32.0-36.0); MCV 94 fL (80-95); MPV 9.5 fL (8.0-11.0); Monocytes % 7.7; Neutrophils % 71.1; Platelet Count 274 10^3/uL (130-400); RBC 5.04 10^6/uL (3.93-5.22); RDW 14.8 % (11.7-14.6); RDW-SD 50.9 fL; WBC 8.72 10^3/uL (4.4-10.8)
[2021-11-18 19:15] LABS: ALT 34 U/L (14-59); AST 20 U/L (15-37); Albumin 3.6 g/dL (3.4-5.0); Alkaline Phosphatase 49 U/L (46-116); Bilirubin, Direct 0.1 mg/dL (0.0-0.2); Bilirubin, Total 0.4 mg/dL (0.2-1.0); Total Protein 6.3 g/dL (6.4-8.2)
== END 2021-11-18 16:24 | disposition home or self-care (01) ==
LOC: NCHCN 16:23
PROVIDERS: PCP Internal Medicine; Visit Provider Internal Medicine
DX: M35.3 Polymyalgia rheumatica (principal)
CPT/HCPCS: 80076; 85025

== ENCOUNTER 2021-12-20 10:50 | Outpatient (REF) | payer MEDICARE, BC, SELFPAY ==
--- OUTSIDE RECORDS SUMMARY | 2021-12-20 10:53 | XMS_ITS | Encounter Summary ---
:1955 Author Organization [facility] Address [address] [place] [address] Care Team Providers Name Role Phone Unknown, Provider Primary Care Provider Juaquin Iniguez MD Primary Care Provider Encounter Details Date Type Department Care Team Description 10/28/2020 Lab Requisition [facility] Outr Resulting Lab, Pathology & Laboratory Provider [facility] [address] [place], [place] [id number] Social History Tobacco Use Types Packs/Day Years Used Date Never Assessed Sex Assigned at Date Recorded Not on file documented as of this encounter Plan of Treatment Upcoming Encounters Date Type Specialty Care Team Description 01/25/2022 Office Visit Rheumatology Milagros Evans MD [address] [facility], [facility] [address], [address] [place], [place] [address] (Wo rk) documented as of this encounter Procedures Procedure Name Priority Date/Time Associated Diagnosis Comme nts LYME AB Routine 10/28/2020 9:00 EDT Results for this procedure are i n the results section . 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
--- OUTSIDE RECORDS SUMMARY | 2021-12-20 10:53 | XMS_ITS | Encounter Summary ---
:1955 Author Organization [facility] Address [address] [place] [address] Care Team Providers Name Role Phone Unknown, Provider Primary Care Provider Juaquin Iniguez MD Primary Care Provider Encounter Details Date Type Department Care Team Description 11/19/2020 Lab Requisition [facility] Outr Resulting Lab, Pathology & Laboratory Provider [facility] [address], [place] [address] Social History Tobacco Use Types Packs/Day Years Used Date Never Assessed Sex Assigned at Date Recorded Not on file documented as of this encounter Plan of Treatment Upcoming Encounters Date Type Specialty Care Team Description 01/25/2022 Office Visit Rheumatology Milagros Evans MD [address] [facility], [facility] [place], [address] [place], [place] [address] (Wo rk) documented as of this encounter Procedures Procedure Name Priority Date/Time Associated Comments Diagnosis CCP ANTIBODIES Routine 11/18/2020 14:15 Results f or this EDT procedure are i n the results section. RHEUMATOID FACTOR Routine 11/18/2020 14:15 Result s for this EDT procedure are i n the results section. ANTI NUCLEAR AB Routine 11/18/2020 14:15 Results for this ([place]), IFA EDT procedure are i n the results section. documented in this encounter Results RHEUMATOID FACTOR (11/18/2020 14:15 EDT) Pathologist Sig nature Rheumatoid Factor <8.6 <12.0 IU/mL [facility] Specimen Blood - Venous blood (substance) Performing Organization Address City/[facility]/ZIP Code Phon e Number [facility] [address] [place] [address] SERVICES (ABNORMAL) ANTI NUCLEAR AB ([place]), IFA (11/18/2020 14:15 EDT) [place] Interpretation Positive (A) Negative [facility] Comment: [facility] For titers greater than or e qual to 1:160 (except the centromere and nucleolar patterns) it is recommended that specific follow-up autoantibody testing ??(such as for dsDNA and Extractable Nuclear Antig SERVICES ens) be performed on all diffuse and/or speckled patterns NOTE: For add-on testing dsD NA is stable for 7 days refrigerated while Extractable Nuclear Antigens are only stable for 48 hours refrigerated. [place] Titer and Pattern 1:[address] LABORATORY SERVICES Specimen Blood - Venous blood (substance) Narrative [facility] - 11/22/2020 15:20 EDT Results were obtained with the INOVA NOV A Lite HEp-2 [place] Kit by indirect immunofluorescence. Performing Organization Address City/[facility]/ZIP Code Phon e Number [facility] [address] [place] [address] SERVICES CCP ANTIBODIES (11/18/2020 14:15 EDT) Pathologist Sig nature CCP Antibodies <2.5 <5.0 U/mL [facility] SERVICES Specimen Blood - Venous blood (substance) Performing Organization Address City/[facility]/ZIP Code Phon e Number [facility] [address] [place] [address] SERVICES documented in this encounter Visit Diagnoses Not on filedocumented in this encounter Care Teams Funeral Greeter Relationship Specialty Start Date End Date Unknown, MD Jadiel PCP - General 09/02/15 02/22/21 Juaquin Iniguez MD PCP - General 02/23/21 [address] [place] [address] documented as of this encounter
--- OUTSIDE RECORDS SUMMARY | 2021-12-20 10:53 | XMS_ITS | Encounter Summary ---
:[address] [facility] Address [address] [place] [address] Care Team Providers Name Role Phone Juaquin Iniguez MD Primary Care Provider Reason for Referral Laboratory Services (Routine/Next Available) - New Request Specialty Diagnoses / Procedures Referred By Contact Refer red To Contact Diagnoses PMR (polymyalgia rheumatica) ([facility]) ([facility]) Milagros Evans MD Procedures SED RATE [address] [phone] Referral ID Status Reason Start Date Expiration Date Visits V isits Requested Authorized [id number] New Request 09/14/2021 1 1 Laboratory Services (Routine/Next Available) - New Request Specialty Diagnoses / Procedures Referred By Contact Refer red To Contact Diagnoses PMR (polymyalgia rheumatica) ([facility]) ([facility]) Milagros Evans MD Procedures C REACTIVE PROTEIN [address] [phone] Referral ID Status Reason Start Date Expiration Date Visits V isits Requested Authorized [id number] New Request 09/14/2021 1 1 Reason for Visit Reason Comments Follow-up 1 month fu Joint Pain knees, hips,thighs, elbows, shoulders Encounter Details Date Type Department Care Team Description 09/14/2021 Office Visit [facility] Milagros Evans (elisabeth mckinneyyalgia Rheumatology & MD Amisha rheumatica) Immunology - [address] ([facility] ) ([facility]) [facility] (Primary Dx) [address] [place] [address] [address], [place] [phone] (Wo rk) Social History Tobacco Use Types Packs/Day Years Used Date Never Smoker Smokeless Tobacco: Never Used Sex Assigned at Date Recorded Not on file documented as of this encounter Last Filed Vital Signs Vital Sign Reading Time Taken Comments Blood Pressure 136/73 09/14/2021 1043 EDT Pulse 69 09/14/2021 1043 EDT Temperature - - Respiratory Rate - - Oxygen Saturation - - Inhaled Oxygen Concentration - - Weight 60.8 kg (134 lb) 09/14/2021 1038 EDT Height 160 cm (5' 2.99) 09/14/2021 1038 EDT Body Mass Index 23.74 09/14/2021 1038 EDT documented in this encounter Functional Status Functional Status Response Date of Assessment Because of a physical, mental, or emotional condition, No 09/14/2021 does this person have difficulty doing errands alone such as visiting a doctor's office or shopping? Cognitive Status Response Date of Assessment Because of a physical, mental, or emotional condition, No 02/25/2021 does this person have serious difficulty concentrating, remembering, or making decisions? documented as of this encounter Patient Instructions Patient InstructionsMilagros Evans MD - 09/14/2021 10:20 EDT Labs now and every 1 month. Increase prednisone to 10 mg daily for 2 weeks. Then, decrease prednisone by 1 mg every one month until down to 5 mg daily (and stay at 5 mg daily) 1 tablet (5 mg) + 4 tablets (1mg tablets) x 2 weeks= 9 mg 1 tablet (5 mg) + 3 (1mg tablets) x 2 weeks = 8 mg 1 tablet (5 mg) + 2 (1mg tablets) x 2 weeks = 7 mg 1 tablet (5 mg) + 1 (1mg tablets) x 2 weeks = 6 mg 1 tablet (5 mg) + 0 (1mg tablets) x 2 weeks = 5 mg Stay at 5 mg daily thereafter Start methotrexate 6 tablets once weekly and folic acid 1 mg daily. Methotrexate takes 2 to 3 monthsto work fully. If symptoms return as we taper prednisone, we will use Actemra. Follow up in 4 months. NFORMATION ON METHOTREXATE Methotrexate is one of the most effective and commonly used medications in the treatment of rheumatoid arthritis and other forms of inflammatory arthritis, and also may be used to treat lupus, inflammatory myositis, vasculitis, and some forms of childhood arthritis. It is often used in combination with other medications to treat arthritis. It is known as a disease-modifying anti- rheumatic drug (DMARD), because it not only decreases the pain and swelling of arthritis, but it also can decrease damage to joints and long-term disability +How to Take It Methotrexate comes either as pills or as a subcutaneous injection. Methotrexate is usually taken as a single dose once per week, although occasionally the dose is split into two doses, taken once per week, to improve absorption or avoid side effects. Your doctor also may prescribe a folic acid (or folate) vitamin supplement to decrease the chance of side effects. Methotrexate should not be taken if kidney or liver function is not normal. Alcohol significantly increases the risk for liver damage while taking methotrexate, so alcohol should be avoided. Regular laboratory monitoring is required to monitor blood counts and your liver while taking methotrexate. Improvements in arthritis and other condit ions usually are first seen in three - six weeks. The full benefit of this drug may not be seen until after 12 weeks of treatment. +Side Effects Methotrexate can lower the ability of your immune system to fight infections. If you develop symptoms of an infection while using this medication, you should stop it and contact your doctor. The most common side effects are gastrointestinal upset and elevations of liver function tests. About 1 - 3% of patients develop mouth sores (called stomatitis), rash, diarrhea, and abnormalities in blood counts. Some side effects do not cause symptoms, so it is important to have routine blood tests performed every 8 - 12 weeks. Methotrexate may cause cirrhosis (scarring) of the liver, but this side effect is rare and most likely to occur in patients who already have liver problems or are using alcohol or taking other drugs that are toxic to the liver. Lung problems (persistent cough or unexplained shortness of breath) can occur rarely when taking methotrexate. Slow hair loss is seen in some patients, but hair grows back when the person stops taking this medication. This can often be managed by taking folic acid. It is important to remember that most patients do not experience side effects, and that, for those who do, manyof the minor side effects will improve with time. +Tell Your Doctor You should contact your doctor of you develop symptoms of an infection, such as a fever or cough, orif you think you are having any side effects. Be sure to let your doctor know if you are , planning to get , or if you are . Methotrexate treatment should be discontinued for at least three months before attempting to become . Even though methotrexate should not betaken during , it does not reduce a woman's chance of becoming in the future. Men taking methotrexate should talk to their physician prior to attempts to conceive. If you are planningon having surgery or will be receiving chemotherapy or radiation therapy, talk to your doctor first. ?? 2017 [employer] Milagros Evans MD documented in this encounter Ordered Prescriptions Prescription Sig Dispensed Refills Start Date End Date predniSONE (DELTASONE) 1 Take 4 mg daily or as 360 Tablet 3 09/14/2021 mg tablet directed (360 for 3 months supply) folic acid (FOLVITE) 1 mg Take 1 Tablet by 90 Tablet 3 08/18 tablet mouth daily. methotrexate 2.5 mg Take 6 tablets once 24 Tablet 5 022 tablet weekly predniSONE (DELTASONE) 5 Take 1 tablet daily 90 Tablet 3 mg tablet along with the 1 mg tablets. 3 months supply documented in this encounter Progress Notes Milagros Evans MD - 09/14/2021 1020 EDT [facility] Department of Rheumatology Follow Up Visit PCP Juaquin Iniguez 09/14/2021 History of Present Illness: Estephania Rice is a 66 y.o. female with past medical history of vitiligo, hypertension, was referred to clinic due to 5 months of diffuse myalgia and arthralgia (mostly proximal), morning stiffnessand fatigue. Initially assessed 02/25/21. ?? During the our initial visit, she reported?that two days after her first dose of COVID-19 Modernavaccine (09/14/20) she noticed migratory joint pain over elbows, shoulders, knees. Pain was mild. Shehad ongoing headaches (occipital), but even before the vaccine (08/28/20). She then followed up with her PCP 09/17/20. During this time, ??Pain continued to escalate, to the point that she could not roll over in bed, dress herself or comb her hair.??Her second dose was 10/12/20. Following her second Moderna vaccine, had fevers, fell down the stairs. She developed worsening pain, she was also experiencingsignificant fatigue. She was managing her pain with ibuprofen.??At the time of the visit, she reported localized pain over shoulders, upper arms, neck, periscapular area, hip girdle, thighs and knees. Other areas of pain included MCPs. Morning pain and stiffness lasted about 2 to 4 hours. Exam was relevant for pain with active abduction beyond 90 degrees bilaterally. Impression was PMR, additional testing was pursued as well and no other rheumatologic process identified. Started prednisone at 20 mg daily. ?? She was last seen in clinic 03/23/21 and during this visit, she denied joint pain and/or swelling. She was down to prednisone 17.5 mg daily. She did not have limitation in shoulder abduction. Plan was to continue to taper prednisone by 2.5 mg every 2 weeks until down to 10 mg daily and later by 1 mg every 2 weeks until down to 5 mg daily and later by 1 mg every 1 month until down to 0 mg. Interval history: She was last assessed through phone 08/12/21 ?? TODAY Reports she felt the best at 15 or 17.5 mg of prednisone daily. Reports that her PCP increased her prednisone to 13.5 mg daily in Apr 2021. Remains on this dose for3 weeks, then taper to 11 or 10 mg daily Was tapering by 2.5 mg every 2 weeks until 5 mg daily and later 1 mg per month. Has been on prednisone 4 mg daily for the past 1 month . Localizes her pain to knees, hips, biceps area and upper back. Pain is worse in AM. Reports morning stiffness for about 2 to 3 hours. On August 22, she went to ED due to chest pain, burning sensation over her chest along with palpitation (chest pain lasted several hours). This was in [facility]. Did not have a CT chest. Did EKGand echocardiogram. Had what appears to be a ziopatch that was returned 09/08/21. Follows with Dr. Iniguez from Cardiology ([place]). Has a stress test scheduled. Has been started on metoprolol. She was prescribed pantoprazole. She has not had any other episode of chest pain. Reports she walks 3 miles a day and does not experiences any chest pain or shortness of breath Review of Systems: I have reviewed the systems reviewed by the nurse Past Medical History: Diagnosis Date ??? Essential hypertension ??? PMR (polymyalgia rheumatica) ([facility]) ([facility]) ??? Vitiligo Past Surgical History: Procedure Laterality Date ??? APPENDECTOMY Family History Problem Relation Age of Onset ??? Cancer Mother Social History Socioeconomic History ??? Marital status: Spouse name: Not on file ??? Number of children: Not on file ??? Years of education: Not on file ??? Highest education level: Not on file Occupational History ??? Not on file Tobacco Use ??? Smoking status: Never Smoker ??? Smokeless tobacco: Never Used Vaping Use ??? Vaping Use: Never used Substance and Sexual Activity ??? Alcohol use: Not on file ??? Drug use: Not on file ??? Sexual activity: Not on file Other Topics Concern ??? Not on file Social History Narrative ??? Not on file Social Determinants of Health Financial Resource Strain: Not on file Food Insecurity: Not on file Transportation Needs: Not on file Physical Activity: Not on file Stress: Not on file Social Connections: Not on file No Known Allergies Current Outpatient Medications Medication Sig ??? Cholecalciferol, Vitamin D3, (VITAMIN D3) 25 mcg (1,000 unit) capsule Take 1,000 Units by mouth daily. ??? ibuprofen (MOTRIN) 800 mg tablet Take 800 mg by mouth every 6 hours as needed for Pain. (Patientnot taking: Reported on 09/14/2021) ??? metoprolol SUCCinate (TOPROL-XL) 25 mg tablet Take 50 mg by mouth daily. ??? pantoprazole (PROTONIX) 40 mg tablet TAKE ONE TABLET BY MOUTH EVERY DAY FOR 42 DAYS ??? predniSONE (DELTASONE) 1 mg tablet Take 4 tablets daily ??? predniSONE (DELTASONE) 5 mg tablet 20 mg daily for 2 week, then taper by 2.5 mg every 2 weeks until down to 10 mg daily or as directed. (Patient not taking: Reported on 09/14/2021) Physical exam: BP 136/73 (BP Cuff Location: Left arm, BP Patient Position: Sitting) Pulse 69 Ht 160 cm (62.99) Wt 60.8 kg (134 lb) LMP (LMP Unknown) BMI 23.74 kg/m?? HEENT: moist oral mucosa, no ulcers Neck: No lymphadenopathy CV: S1 and S2 audible, rhythmic, no murmurs or rubs Respiratory: breath sounds audible throughout, no crackles or wheezing Abdomen: Bowel sounds audible, soft to deep palpation, no hepatomegaly or splenomegaly Skin: no rashes MSK: Neck: Full ROM Shoulders: Full ROM, no tenderness or swelling Elbows:Full ROM, no tenderness or swelling Wrist:Full ROM, no tenderness or swelling Hand:Full ROM, no tenderness or swelling Lower back:Full ROM Hip:Full ROM Knee:Full ROM, no tenderness or swelling Ankles: Full ROM, no tenderness or swelling Feet:Full ROM, no tenderness or swelling Laboratory testing: Component Latest Ref Rng & Units 03/23/2021 07/06/2021 WBC, External 10.58 RBC, External 5.49 Hemoglobin, External 16.2 HCT, External 51.0 MCV, External 92.9 MCH, External 29.5 MCHC, External 31.8 PLT, External 298 RDW-CV, External 12.5 Neutrophils, External 83.1 Lymphocytes, External 11.1 Monocytes, External 4.3 Eosinophils, External 0.5 Basophils, External 0.5 ABS Neutrophils, External 8.80 ABS Lymphs, External 1.17 ABS Monocytes, External 0.46 ABS Eosinophils, External 0.05 ABS Basophils, External 0.05 C-Reactive Protein <10.0 mg/L <7.0 Sed. Rate Westergren 0 - 30 mm/hr 1 Sed. Rate Westergren, External 11 Component Latest Ref Rng & Units 09/14/2021 WBC 4.00 - 12.40 K/cmm 8.96 RBC 3.86 - 5.04 M/cmm 5.05 (H) Hemoglobin 11.6 - 15.2 gm/dL 15.2 HCT 34.9 - 44.4 % 46.3 (H) MCV 81 - 98 fl 92 MCH 26.7 - 33.3 pg 30.1 MCHC 32.1 - 35.9 gm/dL 32.8 RDW-CV <14.7 % 13.2 RDW-SD <50.4 fl 45.0 PLT 141 - 377 K/cmm 293 MPV 9.5 - 12.7 fl 9.1 (L) Neutrophils % 77.5 Lymphocytes % 15.1 Monocytes % 5.6 Eosinophils % 0.8 Basophils % 0.6 Immature Grans % 0.4 ABS Neutrophils 2.20 - 8.85 K/cmm 6.95 ABS Lymphs 1.09 - 3.30 K/cmm 1.35 ABS Monocytes 0.10 - 0.80 K/cmm 0.50 ABS Eosinophils 0.03 - 0.61 K/cmm 0.07 ABS Basophils 0.01 - 0.11 K/cmm 0.05 ABS Immature Grans 0.00 - 0.06 K/cmm 0.04 Type of Diff: Auto C-Reactive Protein <10.0 mg/L <7.0 Sed. Rate Westergren 0 - 30 mm/hr 2 CK 30 - 135 U/L 62 Imaging: None ordered RAPID3 SCORES AND INTERPRETATION 03/23/2021 09/14/2021 Functional Status 0 2.7 Pain Tolerance 1 4.5 Global Estimate 2 5 RAPID3 3 12.2 Interpretation Near Remission High Problem List: Patient Active Problem List Diagnosis ??? Vitiligo ??? Essential hypertension ??? PMR (polymyalgia rheumatica) ([facility]) ([facility]) Assessment Plan: Polymyalgia Rheumatica Increased inflammatory joint pain as she tapered steroids. Will increase prednisone slightly and add methotrexate We discussed side effect profile of methotrexate including: allergic rash, GI upset, stomatitis, myelosuppression, liver toxicity and pulmonary toxicity as well as increased risk of infection. Plan as outlined below. Chest pain Appears esophageal as least the two episodes that she had while swallowing Will defer to her PCP Plan: As outlined in patient's instructions Patient Instructions Labs now and every 1 month. Increase prednisone to 10 mg daily for 2 weeks. Then, decrease prednisone by 1 mg every one month until down to 5 mg daily (and stay at 5 mg daily) 1 tablet (5 mg) + 4 tablets (1mg tablets) x 2 weeks= 9 mg 1 tablet (5 mg) + 3 (1mg tablets) x 2 weeks = 8 mg 1 tablet (5 mg) + 2 (1mg tablets) x 2 weeks = 7 mg 1 tablet (5 mg) + 1 (1mg tablets) x 2 weeks = 6 mg 1 tablet (5 mg) + 0 (1mg tablets) x 2 weeks = 5 mg Stay at 5 mg daily thereafter Start methotrexate 6 tablets once weekly and folic acid 1 mg daily. Methotrexate takes 2 to 3 monthsto work fully. If symptoms return as we taper prednisone, we will use Actemra. Follow up in 4 months. NFORMATION ON METHOTREXATE Methotrexate is one of the most effective and commonly used medications in the treatment of rheumatoid arthritis and other forms of inflammatory arthritis, and also may be used to treat lupus, inflammatory myositis, vasculitis, and some forms of childhood arthritis. It is often used in combination with other medications to treat arthritis. It is known as a disease-modifying anti- rheumatic drug (DMARD), because it not only decreases the pain and swelling of arthritis, but it also can decrease damage to joints and long-term disability +How to Take It Methotrexate comes either as pills or as a subcutaneous injection. Methotrexate is usually taken as a single dose once per week, although occasionally the dose is split into two doses, taken once per week, to improve absorption or avoid side effects. Your doctor also may prescribe a folic acid (or folate) vitamin supplement to decrease the chance of side effects. Methotrexate should not be taken if kidney or liver function is not normal. Alcohol significantly increases the risk for liver damage while taking methotrexate, so alcohol should be avoided. Regular laboratory monitoring is required to monitor blood counts and your liver while taking methotrexate. Improvements in arthritis and other condit ions usually are first seen in three - six weeks. The full benefit of this drug may not be seen until after 12 weeks of treatment. +Side Effects Methotrexate can lower the ability of your immune system to fight infections. If you develop symptoms of an infection while using this medication, you should stop it and contact your doctor. The most common side effects are gastrointestinal upset and elevations of liver function tests. About 1 - 3% of patients develop mouth sores (called stomatitis), rash, diarrhea, and abnormalities in blood counts. Some side effects do not cause symptoms, so it is important to have routine blood tests performed every 8 - 12 weeks. Methotrexate may cause cirrhosis (scarring) of the liver, but this side effect is rare and most likely to occur in patients who already have liver problems or are using alcohol or taking other drugs that are toxic to the liver. Lung problems (persistent cough or unexplained shortness of breath) can occur rarely when taking methotrexate. Slow hair loss is seen in some patients, but hair grows back when the person stops taking this medication. This can often be managed by taking folic acid. It is important to remember that most patients do not experience side effects, and that, for those who do, manyof the minor side effects will improve with time. +Tell Your Doctor You should contact your doctor of you develop symptoms of an infection, such as a fever or cough, orif you think you are having any side effects. Be sure to let your doctor know if you are , planning to get , or if you are . Methotrexate treatment should be discontinued for at least three months before attempting to become . Even though methotrexate should not betaken during , it does not reduce a woman's chance of becoming in the future. Men taking methotrexate should talk to their physician prior to attempts to conceive. If you are planningon having surgery or will be receiving chemotherapy or radiation therapy, talk to your doctor first. ?? 2017 [employer] Milagros Evans MD I spent a total of 30 minutes on the date of this encounter meeting with the patient and reviewing documentation/coordinating care as described in the above note. No procedures were performed at the time of the visit. Milagros Evans MD Department of Rheumatology Attending Physician Pager: [phone] documented in this encounter Plan of Treatment Upcoming Encounters Date Type Specialty Care Team Description 01/25/2022 Office Visit Rheumatology Milagros Evans MD [address] [place] [address], [facility], [facility] [address] [place], [place] [phone] (Wo rk) Scheduled Orders Name Type Priority Associated Diagnoses Order S chedule C REACTIVE PROTEIN Lab Routine PMR (polymyalgia every 1 month for 12 rheumatica) ([facility]) Occurr ences starting ([facility]) 09/14/2021 unti l 09/14/2022 SED RATE Lab Routine PMR (polymyalgia every 1 mon for 12 rheumatica) ([facility]) Occurr ences starting ([facility]) 09/14/2021 unti l 09/14/2022 documented as of this encounter Results ALDOLASE (09/14/2021 11:54 EDT) Aldolase, S 5.1 <7.7 U/L [facility] Comment: LABORATORIES Test Performed by: [facility] [address] [address] Database Technician: Gabriel Hannon M.D. Ph.D.; CLIA# [id number] Specimen Blood - Venous blood (substance) Performing Organization Address City/[facility]/ZIP Code Phon e Number [facility] [address] [place] [id number] CK (09/14/2021 11:54 EDT) Pathologist Sig nature CK 62 30 - 135 U/L [facility] Specimen Blood - Venous blood (substance) Performing Organization Address City/[facility]/ZIP Code Phon e Number [facility] [address] [place] [address] SERVICES SED RATE (09/14/2021 11:54 EDT) Pathologist Sig nature Sed Rate 2 0 - 30 mm/hr [facility] Specimen Blood - Venous blood (substance) Performing Organization Address [facility]/ZIP Code Phon e Number [facility] [address] [place] [address] SERVICES C REACTIVE PROTEIN (09/14/2021 11:54 EDT) Pathologist Sig nature C-Reactive Protein <7.0 <10.0 mg/L [facility] Specimen Blood - Venous blood (substance) Performing Organization Address [facility]/ZIP [facility] Phon e Number [facility] [address] [place] [address] SERVICES (ABNORMAL) COMPLETE BLOOD COUNT AND DIFFERENTIAL (09/14/2021 11:54 EDT) WBC 8.96 4.00 - 12.40 [facility] K/cmm LABORATORY SERVICES RBC 5.05 (H) 3.86 - 5.04 [facility] M/[facility] LABORATORY SERVICES Hemoglobin 15.2 11.6 - 15.2 [facility] gm/dL LABORATORY SERVICES HCT 46.3 (H) 34.9 - 44.4 % [facility] MCV 92 81 - 98 fl [facility] MCH 30.1 26.7 - 33.3 pg [facility] MCHC 32.8 32.1 - 35.9 [facility] gm/dL LABORATORY SERVICES RDW-CV 13.2 <14.7 % [facility] RDW-SD 45.0 <50.4 fl [facility] PLT 293 141 - 377 K/[facility] LABORATORY SERVICES MPV 9.1 (L) 9.5 - 12.7 fl [facility] Neutrophils 77.5 % [facility] Lymphocytes 15.1 % [facility] Monocytes 5.6 % [facility] Eosinophils 0.8 % [facility] Basophils 0.6 % [facility] Immature Grans 0.4 % [facility] Absolute Neutrophils 6.95 2.20 - 8.85 [facility] LABORATORY SERVICES Absolute Lymphocytes 1.35 1.09 - 3.30 [facility] LABORATORY SERVICES Absolute Monocytes 0.50 0.10 - 0.80 [facility] LABORATORY SERVICES Absolute Eosinophils 0.07 0.03 - 0.61 [facility] LABORATORY SERVICES Absolute Basophils 0.05 0.01 - 0.11 [facility] LABORATORY SERVICES Absolute Immature 0.04 0.00 - 0.06 [facility] LABORATORY SERVICES Type of Differential: Auto [facility] LABORATORY SERVICES Specimen Blood - Venous blood (substance) Performing Organization Address City/State/ZIP Code Phon e Number [facility] [address] [place] [address] SERVICES documented in this encounter Visit Diagnoses Diagnosis PMR (polymyalgia rheumatica) ([facility] [address]) ( [facility]) - Primary Polymyalgia rheumatica documented in this encounter Discontinued Medications Medication Sig Discontinue Reason Start Date End Date predniSONE (DELTASONE) 1 Take 4 tablets daily 03/23/20 21 09/14/2021 mg tablet predniSONE (DELTASONE) 5 20 mg daily for 2 Reorder 03/23/2021 09/14/2021 mg tablet week, then taper by 2.5 mg every 2 weeks until down to 10 mg daily or as directed. documented as of this encounter Historical Medications This list may reflect changes made after this encounter. Medication Sig Dispensed Refills Start Date End Date Cholecalciferol, Vitamin Take 1,000 Units by 0 D3, (VITAMIN D3) 25 mcg mouth daily. (1,000 unit) capsule pantoprazole (PROTONIX) 40 TAKE ONE TABLET BY 0 0 08/23/2021 mg tablet MOUTH EVERY DAY FOR 42 DAYS metoprolol SUCCinate Take 50 mg by mouth 0 2021 (TOPROL-XL) 25 mg tablet daily. added in this encounter Care Teams Site Interpreter Relationship Specialty Start Date End Date Juaquin Iniguez MD PCP - General 02/23/21 [address] [place] [address] documented as of this encounter
--- OUTSIDE RECORDS SUMMARY | 2021-12-20 10:53 | XMS_ITS | Encounter Summary ---
:1955 Author Organization [facility] Address [address] [place] [address] Care Team Providers Name Role Phone Unavailable Primary Care Provider Unavailable Encounter Details Date Type Department Care Team Description 08/11/2010 Results Only [facility] Laboratory Chris Diop am, MD [facility] [place] [address], [place] [id number] Social History Tobacco Use Types Packs/Day Years Used Date Never Assessed Sex Assigned at Date Recorded Not on file documented as of this encounter Plan of Treatment Upcoming Encounters Date Type Specialty Care Team Description 01/25/2022 Office Visit Rheumatology Milagros Evans MD [address] [facility], [facility], [address] [place], [place] [address] (Wo rk) documented as of this encounter Procedures Procedure Name Priority Date/Time Associated Diagnosis Comme nts CYTOPATHOLOGY Routine 08/11/2010 0:00 EST Results for this procedure are i n the results section . documented in this encounter Results CYTOPATHOLOGY (08/11/2010 0:00 EST) Pathology Report: CYTOPATHOLOGY REPORT ? [facility] ? LAB Reports generated via electr onic interface contain original data; ? however they are lacking the format of the original report. ? Caution should be taken when reading/interpreting unformatted reports. ? Name: ? KURZEJ, KEYANNA ? Accession #: ? [id number] ? : ? 1955 (Age: 55) ??F ?Collect Date: ? 08/11/2010 ? Location: ? [facility] ? R eceive Date: ? 08/12/2010 ? Provider: MARILIN B DIOP MD ? Copy to: ? Final Report ? SPECIMEN ADEQUACY ? Satisfactory for Eval uation ? - transformation zone compon ent present ? - scant squamous epithelial component secondary to excessive inflammation ? GENERAL CATEGORIZATION ? Negative for Intraepi thelial Lesion or Malignancy ? Specimen/Source: ??Pap Test, Cervix/Endocervix, ThinPrep Imaging System with ? manual evaluation ? Document reviewed and electr onically signed by: ? Bonnie Verville,CT(ASCP) ? Report ??Date: 03/02/ 2011 12:39 ? HPV with Pap Test ? Date Ordered: ? 0 08/17/2010 ? Status: ?? Signed Out ?Date Complete: ? 08/23/2010 ? By: ??System Interface ? Date Reported: ? 08/23/2010 ? Interpretation ? RESULT: Negative for HPV typ es 16, 18, 31, 33, 35, 39, 45, 51, 52, ? 56, 58, 59, and 68. ? Comments ? Document reviewed and electr onically signed by: ? System Interface ? Report date: 08/24/19 ? By the signature above, the attending physician certifies that he/she has ? personally conducted a gross and/or microscopic examination of the described ? specimens and rendered or co nfirmed the above diagnosis. ? End of Report ? Specimen Performing Organization Address City/State/ZIP Code Phon e Number [facility] [address] [place] [address] SERVICES [facility] [address] [place] [address] documented in this encounter Visit Diagnoses Not on filedocumented in this encounter
--- OUTSIDE RECORDS SUMMARY | 2021-12-20 10:53 | XMS_ITS | Encounter Summary ---
:1955 Author Organization [facility] Address [address] [place] [address] Care Team Providers Name Role Phone Juaquin Iniguez MD Primary Care Provider Encounter Details Date Type Department Care Team Description 02/25/2021 Phlebotomy Only [facility] ED [facility] 2 Nail Professional, Acc Polymy algia rheumatica ([facility]); Phlebotomy Phlebotomy Positive [place] (antinuclear an tibody); [address] [facility] Diabetes mellitus screening; [place], [place] Abnormal find ing of blood chemistry, unspecified ; [id number] Vitamin D deficiency; [phone] Myalgia Social History Tobacco Use Types Packs/Day Years Used Date Never Assessed Sex Assigned at Date Recorded Not on file documented as of this encounter Functional Status Functional Status Response Date of Assessment Because of a physical, mental, or emotional condition, Yes 02/25/2021 does this person have difficulty doing errands alone such as visiting a doctor's office or shopping? Cognitive Status Response Date of Assessment Because of a physical, mental, or emotional condition, No 02/25/2021 does this person have serious difficulty concentrating, remembering, or making decisions? documented as of this encounter Plan of Treatment Upcoming Encounters Date Type Specialty Care Team Description 01/25/2022 Office Visit Rheumatology Milagros Evans MD [address] [place] [facility], Level [address] [place], [place] [address] (Wo rk) documented as of this encounter Procedures Procedure Name Priority Date/Time Associated Comments Diagnosis SPEP, INCLUDES Routine 02/25/2021 16:31 Polymyalgia Results f or this QUANTITATION OF EDT rheumatica procedure ar e in MONOCLONAL SPIKE ([facility]) the results PERFORMABLE Positive [place] section. (antinuclear antibody) SSB ANTIBODIES BY Routine 02/25/2021 16:31 Polymyalgia Result s for this NORM EDT rheumatica procedure are i n ([facility]) the results Positive [place] section. (antinuclear antibody) SSA ANTIBODIES BY Routine 02/25/2021 16:31 Polymyalgia Result s for this NORM EDT rheumatica procedure are i n ([facility]) the results Positive [place] section. (antinuclear antibody) SM (PIEDRA) ANTIBODY Routine 02/25/2021 16:31 Polymyalgia Resu lts for this EDT rheumatica procedure are i n ([facility]) the results Positive [place] section. (antinuclear antibody) VITAMIN D (25,OH) Routine 02/25/2021 16:31 Vitamin D Result s for this EDT deficiency procedure are i n the results section. AUTOMOBILE BODY REPAIRER ANTIBODIES BY Routine 02/25/2021 16:31 Polymyalgia Result s for this NORM EDT rheumatica procedure are i n ([facility]) the results Positive [place] section. (antinuclear antibody) ANTI DNA (DOUBLE Routine 02/25/2021 16:31 Polymyalgia Results for this STRANDED) EDT rheumatica procedure are i n ([facility]) the results Positive [place] section. (antinuclear antibody) COMPLETE BLOOD COUNT Routine 02/25/2021 16:31 Polymyalgia Res ults for this AND DIFFERENTIAL EDT rheumatica procedure a re in ([facility]) the results Positive [place] section. (antinuclear antibody) C3 COMPLEMENT Routine 02/25/2021 16:31 Polymyalgia Results fo r this EDT rheumatica procedure are i n ([facility]) the results Positive [place] section. (antinuclear antibody) C4 COMPLEMENT Routine 02/25/2021 16:31 Polymyalgia Results fo r this EDT rheumatica procedure are i n ([facility]) the results Positive [place] section. (antinuclear antibody) TSH Routine 02/25/2021 16:31 Myalgia Results for this EDT procedure are i n the results section. SPEP, INCLUDES Routine 02/25/2021 16:31 Polymyalgia Results f or this QUANTITATION OF EDT rheumatica procedure ar e in MONOCLONAL SPIKE ([facility]) the results Positive [place] section. (antinuclear antibody) PROTEIN, TOTAL Routine 02/25/2021 16:31 Polymyalgia EDT rheumatica ([facility]) Positive [place] (antinuclear antibody) HEMOGLOBIN A1C Routine 02/25/2021 16:31 Diabetes mellitus Resu lts for this EDT screening procedure are in Abnormal finding of the resu lts blood chemistry, section. unspecified COMPREHENSIVE Routine 02/25/2021 16:31 Polymyalgia Results fo r this METABOLIC PANEL (CMP) EDT rheumatica proced ure are in ([facility]) the results Positive [place] section. (antinuclear antibody) URINE CHEMICAL (DIP) & Routine 02/25/2021 16:30 Polymyalgia R esults for this SEDIMENT (MICRO) EDT rheumatica procedure a re in WITHOUT REFLEX TO ([facility]) the results CULTURE Positive [place] section. (antinuclear antibody) documented in this encounter Results (ABNORMAL) SPEP, INCLUDES QUANTITATION OF MONOCLONAL SPIKE PERFORMABLE (02/25/2021 16:31 EDT) Albumin % 63.9 55.8 - 66.1 % [facility] Alpha-1 % 4.8 2.9 - 4.9 % [facility] Alpha-2 % 9.6 7.1 - 11.8 % [facility] Beta % 11.1 8.4 - 13.1 % [facility] Gamma % 10.6 (L) 11.1 - 18.8 % [facility] SPEP Comment No apparent [facility] monoclonal protein LABORATORY SERVICES seen on serum electrophoresisComm ent: See scanned/supplementa ry report. Total Protein 7.6 6.3 - 8.2 g/dL [facility] Specimen Blood - Venous blood (substance) Narrative This result has an attachment that is no t available. Performing Organization Address City/State/ZIP Code Phon e Number [facility] [address] [place] [address] SERVICES PROTEIN, TOTAL (02/25/2021 16:31 EDT) Specimen Blood - Venous blood (substance) Performing Organization Address City/State/ZIP Code Phon e Number [facility] [address] [place] [address] SERVICES TSH (02/25/2021 16:31 EDT) Pathologist Sig nature TSH 2.69 0.47 - 4.68 uIU/mL [facility] Specimen Blood - Venous blood (substance) Narrative [facility] - 02/25/2021 18:05 EDT The results of this assay can be falsely lowered due to the consumption of Biotin. Performing Organization Address [facility] Code Phon e Number [facility] [address] [place] [address] SERVICES (ABNORMAL) VITAMIN D (25,OH) (02/25/2021 16:31 EDT) 25OH Vitamin D 24.7 (L) 30.0 - 100.0 [facility] Comment: ng/mL [facility] LAB[facility]ATORY Vitamin D 25,OH Interpretive Ranges: SERV ICES Deficiency: ??<10.0 ng/mL Insufficiency: ??10.0 - 30.0 ng/mL Sufficiency: ??30.0 - 100.0 ng/mL Toxicity: ??>100.0 ng/mL Specimen Blood - Venous blood (substance) Performing Organization Address [facility] Phon e Number [facility] [address] [place] [address] SERVICES (ABNORMAL) HEMOGLOBIN A1C (02/25/2021 16:31 EDT) Hemoglobin A1c 6.1 (H) <5.7 % [facility] Comment: LABORATORY SERVICES New methodology in use 09/16/2020 Glycemic Status References: Normal: ??<5.7% Pre-Diabetes: ??5.7% - 6.4% Diagnostic of Diabetes: ??> or = 6.5% (if confirmed) Goals for glycemic control in diabetics (ADA 2017): <7.0% target for non adults with diabetes. <7.5% target for children and adolescents with Type I Diabetes. More or less stringent targets may be appropriate for individual patients. Est Avg Glucose 128Comment: The eAG mg/dL [facility] represents the A1c LABORATORY SERVICES result expressed as average glucose in mg/dL. Specimen Blood - Venous blood (substance) Performing Organization Address [facility] LABORATORY [address] [place] [address] SERVICES SSB ANTIBODIES BY NORM (02/25/2021 16:31 EDT) SSB Antibody 1.1 <20.0 Units [facility] Comment: LABORATORY SERVICES ? Negative: <20.0 Units ? Weak Positive: 20.0 - 39.9 Units ? Moderate Positive: 40.0 - 80.0 Unit s ? Strong Positive: >80.0 Units Results were obtained with [employer] QUANTA Lite SS-B NORM. ??SS-B values obtained with different manufacturers' assay methods may not be used interchangeably. ??The magnitude of the reported IgG levels cannot be correlated to an endpoint titer. Specimen Blood - Venous blood (substance) Performing Organization Address [facility] LABORATORY [address] [place] [address] SERVICES SSA ANTIBODIES BY NORM (02/25/2021 16:31 EDT) SSA Antibody 3.8 <20.0 Units [facility] Comment: LABORATORY SERVICES ? Negative: <20.0 Units ? Weak Positive: 20.0 - 39.9 Units ? Moderate Positive: 40.0 - 80.0 Unit s ? Strong Positive: >80.0 Units Results were obtained with [employer] QUANTA Lite SS-A NORM. ??SS-A values obtained with different manufacturers' assay methods may not be used interchangeably. ??The magnitude of the reported IgG levels cannot be correlated to an endpoint titer. Specimen Blood - Venous blood (substance) Performing Organization Address [facility] e Number [facility] [address] [place] [address] SERVICES AUTOMOBILE BODY REPAIRER ANTIBODIES BY NORM (02/25/2021 16:31 EDT) AUTOMOBILE BODY REPAIRER Antibody 4.2 <20.0 Units [facility] Comment: LABORATORY SERVICES ? Negative: <20.0 Units ? Weak Positive: 20.0 - 39.9 Units ? Moderate Positive: 40.0 - 80.0 Unit s ? Strong Positive: >80.0 Units Results were obtained with Parallelsa Lite AUTOMOBILE BODY REPAIRER NORM. AUTOMOBILE BODY REPAIRER values obtained with different anesthesiologist's assay methods may not be used interchangeaby. ??The magnitude of the reported IgG levels cannot be be correlated to an endpoint titer. A positive result in the Lfynn nta Lite AUTOMOBILE BODY REPAIRER NORM indicates the presence of antibodies reactive with the AUTOMOBILE BODY REPAIRER/Sm complex but cannot distinguish between anti- Sm and anti-AUTOMOBILE BODY REPAIRER activity. Specimen Blood - Venous blood (substance) Performing Organization Address [facility] e [facility] LABORATORY [address] [place] [address] SERVICES SM ([place]) ANTIBODY (02/25/2021 16:31 EDT) SM ([place]) 2.7 <20.0 Units [facility] Antibody Comment: LABORATORY ? Negative: <20.0 Units SERVICES ? Weak Positive: 20.0 - 39.9 Units ? Moderate Positive: 40.0 - 80.0 Unit s ? Strong Positive: >80.0 Units Results were obtained with StrongLoopA Lite Sm NORM. ??Sm values obtained with different manufacturers' assay methods may not be used interchangeably. ??The magnitude of the reported IgG levels cannot be correlated to an endpoint titer. Specimen Blood - Venous blood (substance) Performing Organization Address [facility] e Number [facility] [address] [place] [address] SERVICES ANTI DNA (DOUBLE STRANDED) (02/25/2021 16:31 EDT) Anti-DNA (Double 16.4 <30.0 IU/mL [facility] Stranded) Comment: LABORATORY ? SERV ICES ? Negative: ??<30.0 IU/mL ? Borderline Positive: ??30.0 - 75.0 IU/mL ? Positive: ??>75.0 IU/mL Results were obtained with ana m [employer] dsDNA SC NORM assay on the SonianX. Specimen Blood - Venous blood (substance) Performing Organization Address City/[facility]/ZIP [facility] Phon e Number [facility] [address] [place] [address] SERVICES C3 COMPLEMENT (02/25/2021 16:31 EDT) Pathologist Sig nature C3 Complement 151 81 - 157 mg/dL [facility] SERVICES Specimen Blood - Venous blood (substance) Performing Organization Address [facility]/ZIP [facility] [place] Phon e Number [facility] [address] [place] [phone] SERVICES C4 COMPLEMENT (02/25/2021 16:31 EDT) Pathologist [facility] nature C4 Complement 36 13 - 39 mg/dL [facility] LABORAT [place] SERVICES Specimen Blood - Venous blood (substance) Performing Organization Address [facility]/ZIP [facility] [place] Phon e Number [facility] [address] [place] [address] SERVICES (ABNORMAL) COMPREHENSIVE METABOLIC PANEL (CMP) (02/25/2021 16:31 EDT) Sodium 141 136 - 145 [facility] mmol/L [facility] Potassium 4.1 3.5 - 5.0 [facility] mEq/L [facility] Chloride 96 96 - 110 [facility] mEq/L [facility] CO2 Total 33 (H) 22 - 32 mEq/L [facility] Glucose 105 (H) 70 - 100 [facility] mg/dL [facility] BUN 23 10 - 26 mg/dL [facility] Creatinine 0.81 0.52 - 1.04 [facility] mg/dL [facility] eGFR 76Comment: eGFR >60 [facility] calculated using mL/min/1.73m2 [facility] CKD-EPI equation SERVICES for non- Americans. Multiply eGFR by 1.16 for patients. Total Protein 7.6 6.3 - 8.2 [facility] g/dL [facility] Albumin 4.8 3.4 - 4.9 [facility] g/dL [facility] Alkaline 62 38 - 126 U/L [facility] Phosphatase [facility] AST 24 15 - 46 U/L [facility] SERVICES ALT 19 <35 U/L [facility] Bilirubin, Total <0.5 <1.4 mg/dL [facility] Calcium 10.2 8.5 - 10.5 [facility] mg/dL [facility] Calculated Calcium 9.6 8.5 - 10.5 [facility] mg/dL [facility] Specimen Blood - Venous blood (substance) Performing Organization Address City/State/ZIP Code Phon e Number [facility] [address] [place] [address] SERVICES (ABNORMAL) COMPLETE BLOOD COUNT AND DIFFERENTIAL (02/25/2021 16:31 EDT) WBC 8.84 4.00 - 12.40 [facility] K/[facility] LABORATORY SERVICES RBC 5.57 (H) 3.86 - 5.04 [facility] M/[facility] LABORATORY SERVICES Hemoglobin 15.4 (H) 11.6 - 15.2 [facility] gm/dL LABORATORY SERVICES HCT 47.4 (H) 34.9 - 44.4 % [facility] SERVICES MCV 85 81 - 98 fl [facility] SERVICES MCH 27.6 26.7 - 33.3 pg [facility] SERVICES MCHC 32.5 32.1 - 35.9 [facility] gm/dL LABORATORY SERVICES RDW-CV 13.3 <14.7 % [facility] SERVICES RDW-SD 41.5 <50.4 fl [facility]OR[facility] SERVICES PLT 346 141 - 377 /m [facility] SERVICES MPV 9.0 (L) 9.5 - 12.7 fl [facility] SERVICES Neutrophils 63.3 % [facility] SERVICES Lymphocytes 26.9 % [facility] SERVICES Monocytes 7.4 % [facility] SERVICES Eosinophils 1.5 % [facility] SERVICES Basophils 0.6 % [facility] Immature Grans 0.3 % [facility] SERVICES Absolute Neutrophils 5.60 2.20 - 8.85 [facility] LABORATORY SERVICES Absolute Lymphocytes 2.38 1.09 - 3.30 [facility] LABORATORY SERVICES Absolute Monocytes 0.65 0.10 - 0.80 [facility] LABORATORY SERVICES Absolute Eosinophils 0.13 0.03 - 0.61 [facility] LABORATORY SERVICES Absolute Basophils 0.05 0.01 - 0.11 [facility] LABORATORY SERVICES Absolute Immature 0.03 0.00 - 0.06 [facility] Grans [facility] LABORATORY SERVICES Type of Differential: Auto [facility] Specimen Blood - Venous blood (substance) Performing Organization Address City/State/ZIP Code Phon e Number [facility] [address] [place] [address] SERVICES URINE CHEMICAL (DIP) & SEDIMENT (MICRO) WITHOUT REFLEX TO CULTURE (02/25/2021 16:30 EDT) Color UA Yellow Colorless, Yellow [facility] SERVICES Clarity UA Clear Clear [facility] Glucose UA Negative Negative [facility] Bilirubin UA Negative Negative [facility] Ketones UA Negative Negative [facility] SERVICES Specific [place], 1.014 1.001 - 1.035 [facility] Urine LABORATORY SERVICES Blood UA Negative Negative [facility] SERVICES Urobilinogen UA Normal Normal mg/dL [facility] Nitrite UA Negative Negative [facility] Leukocyte Esterase UA Negative Negative [facility] Protein UA Negative Negative [facility] pH, UA 6.5 4.6 - 8.0 [facility] Urine RBC Count, Auto 0 - 2 0 - 2 Cells/HPF [facility] LABORATORY SERVICES Urine WBC Count, Auto 0 - 3 0 - 3 Cells/HPF [facility] SERVICES Urine Squamous Count, None Seen None Seen [facility] Auto Cells/HPF LABORATORY SERVICES Urine Hyaline Cast <=10 <=10 Casts/LPF [facility] Count, Auto LABORATORY SERVICES Urine Bacteria Count, None Seen None Seen [facility] Auto Bacteria/HPF LABORATORY SERVICES Specimen Urine - Urine specimen collection, clean catch (procedure) Narrative [facility] SERVICES - 02/25/2021 17:44 EDT Urine Sediment Analysis results are unre liable on urines that are unrefrigerated for >2 hrs or refrigerated >8 hrs. Performing Organization Address City/State/ZIP Code Phon e Number [facility] [address] [place] [address] SERVICES documented in this encounter Visit Diagnoses Diagnosis Polymyalgia rheumatica ([facility]) (HCC) Polymyalgia rheumatica Positive [place] (antinuclear antibody) Other and unspecified nonspecific immuno logical findings Diabetes mellitus screening Screening for diabetes mellitus Abnormal finding of blood chemistry, uns pecified Vitamin D deficiency Unspecified vitamin D deficiency Myalgia Mylagia and myositis, unspecified documented in this encounter Care Teams Sales Administration Manager Relationship Specialty Start Date End Date Juaquin Iniguez MD PCP - General 02/23/21 [address] [place] [address] documented as of this encounter
--- OUTSIDE RECORDS SUMMARY | 2021-12-20 10:53 | XMS_ITS | Clinical Summary ---
:1955 Author Organization [facility] Address [address] [place] [address] Care Team Providers Name Role Phone Juaquin Iniguez MD Primary Care Provider Allergies No known active allergies Medications Medication Sig Dispensed Refills Start Date End Date Status ibuprofen (MOTRIN) 800 Take 800 mg by 0 Active mg tablet mouth every 6 hours as needed for Pain. metoprolol SUCCinate Take 50 mg by 0 08/23/2021 Active (TOPROL-XL) 25 mg mouth daily. tablet pantoprazole TAKE ONE TABLET 0 08/23/2021 Active (PROTONIX) 40 mg BY MOUTH EVERY tablet DAY FOR 42 DAYS Cholecalciferol, Take 1,000 Units 0 Active Vitamin D3, (VITAMIN by mouth daily. D3) 25 mcg (1,000 unit) capsule predniSONE (DELTASONE) Take 1 tablet 90 Tablet 3 09/14/2021 Active 5 mg tablet daily along with the 1 mg tablets. 3 months supply methotrexate 2.5 mg Take 6 tablets 24 Tablet 5 09/14/2021 Active tablet once weekly folic acid (FOLVITE) 1 Take 1 Tablet by 90 Tablet 3 09/14/2021 Active mg tablet mouth daily. predniSONE (DELTASONE) Take 4 mg daily 360 Tablet 3 09/14/2021 Active 1 mg tablet or as directed (360 for 3 months supply) Active Problems Problem Noted Date Vitiligo 03/02/2021 Essential hypertension 03/02/2021 PMR (polymyalgia rheumatica) ([facility]) 03/02/2021 Immunizations Name Administration Dates Next Due Covid-19 mRNA Vaccine (MODERNA COVID-19) PF 0.5 ml IM 2020, 09/14/2020 (18 yrs+) Surgical History Surgery Date Site/Laterality Comments APPENDECTOMY Medical History Medical History Date Comments Vitiligo Essential hypertension PMR (polymyalgia rheumatica) ([facility]) (HCC) Family History Medical History Relation Name Comments Cancer Mother Relation Name Status Comments Mother Social History Tobacco Use Types Packs/Day Years Used Date Never Smoker Smokeless Tobacco: Never Used Sex Assigned at Date Recorded Not on file Last Filed Vital Signs Vital Sign Reading Time Taken Comments Blood Pressure 136/73 09/14/2021 1043 EDT Pulse 69 09/14/2021 1043 EDT Temperature - - Respiratory Rate 16 02/25/2021 1448 EDT Oxygen Saturation - - Inhaled Oxygen Concentration - - Weight 60.8 kg (134 lb) 09/14/2021 1038 EDT Height 160 cm (5' 2.99) 09/14/2021 1038 EDT Body Mass Index 23.74 09/14/2021 1038 EDT Plan of Treatment Upcoming Encounters Date Type Specialty Care Team Description 01/25/2022 Office Visit Rheumatology Milagros Evans MD [address] [facility], [facility], [address] [place], [place] [address] (Wo rk) Health Maintenance Due Date Last Done Comments Hepatitis C Screen 1955 COVID-19 Vaccine (3 - Booster for 03/14/2021 10/12/2020, Moderna series) Fall Risk Screening 09/14/2022 09/14/2021, 08/12/2021, 03/23/2021 Insurance Payer Benefit Plan / Subscriber ID Effective Dates Phone Addre ss Type Group MEDICARE MEDICARE A/B [id number] 2019-Presen [id number] Medicare [place] [phone] [place] [id number] 2019-[place]en [address] [place] [address] [place] [phone] Estephania Rice Personal/Family Self 1955 [address] (Home) [place] [address] Care Teams Soft Boarder Relationship Specialty Start Date End Date Juaquin Iniguez MD PCP - General 02/23/21 [address] [place] [address]
--- OUTSIDE RECORDS SUMMARY | 2021-12-20 10:53 | XMS_ITS | Encounter Summary ---
:1955 Author Organization [facility] Address [address] [place] [address] Care Team Providers Name Role Phone Juaquin Iniguez MD Primary Care Provider Reason for Visit Reason Comments New Patient Visit Whole body aches - out of th e blue, started end of august - believe it is caused by Mode rna vaccine Joint Pain Back, hips, knees, shoulders , palms, fingers, - Increased Blood Pressure Medication Management Taking Motrin - when not keri ing pain level is at a 10 Fatigue Headaches in the back of hea d toward the end of August - Increased over the months. D uring the end of August/Beguinning of September the pain was very s ever Referral (Routine) - Receiving Office to Obtain Authorization Specialty Diagnoses / Procedures Referred By Contact Refer red To Contact Rheumatology Diagnoses Polymyalgia rheumatica ([facility]) Fibromyalgia Juaquin Iniguez MD [facility] Rhe[facility] [address] [place] [address] [place] [address] Fax: Referral ID Status Reason Start Expiration Visits Visits Date Date Requested Authorized [id number] Receiving Office 1 1 to Obtain Authorization Encounter Details Date Type Department Care Team Description 02/25/2021 Office Visit [facility] Milagros Evans Polymya lgia rheumatica ([facility]) (Primary Dx); Rheumatology & MD Amisha Positive [place] (antinuclear antibody); Immunology - Main [address] Diabetes mellitus screening; [address] Abnormal finding of blood chemistry, uns pecified ; [address] [facility], [facility] Vitamin D deficiency; [place] [address] Pavilion, Level 5 Myalgia [phone] [place] [address] (Wo rk) Social History Tobacco Use Types Packs/Day Years Used Date Never Assessed Sex Assigned at Date Recorded Not on file documented as of this encounter Last Filed Vital Signs Vital Sign Reading Time Taken Comments Blood Pressure 177/96 02/25/2021 1448 EDT Pulse 81 02/25/2021 1448 EDT Temperature - - Respiratory Rate 16 02/25/2021 1448 EDT Oxygen Saturation - - Inhaled Oxygen Concentration - - Weight 54.4 kg (120 lb) 02/25/2021 1448 EDT Height 160 cm (5' 3) 02/25/2021 1448 EDT Body Mass Index 21.26 02/25/2021 1448 EDT documented in this encounter Functional Status [...] as of this encounter Patient Instructions Patient InstructionsNeMilagros chirinos MD - 02/25/2021 14:40 EDT Labs today Complete age appropriate cancer screening. Start prednisone 20 mg daily for 2 week, taper by 2.5 mg every 2 weeks until down to 10 mg daily, later by 1 mg every 2 weeks until down to 5 mg daily and stay at 5 mg daily until follow up. Take the full dose every morning. Stop Ibuprofen Follow up in 07/2021 Milagros Evans MD POLYMYALGIA RHEUMATICA (PMR) - Patient Fact Sheet CONDITION DESCRIPTION Polymyalgia rheumatica (PMR) is a common condition that involves widespread aching and stiffness. Itoften affects the upper arms, neck, lower back and thighs. Pain and stiffness usually is worse in the mornings. PMR doesn't cause joint swelling, so it can be hard to spot. It may occur along with an autoimmune disease called giant cell arteritis. It's more common after age 50. Women get PMR slightly more often than men and it's more common in Caucasians, but anyone can get PMR. PMR's cause is unknown. It isn't caused by any medications. There is some inflammation in PMR. Some research suggests that PMR pain may be related to inflamed bursae (sacs) in the shoulders or hips. PMR inflammation responds quickly to treatment. SIGNS/SYMPTOMS The most common symptoms of polymyalgia rheumatica are widespread aching, stiff muscles. Symptoms can come on quickly, even overnight. Usually, you feel aches on both sides of your body. It may be hardto raise your arms over your shoulders. Hands and wrists may ache too. PMR aches may be worse in the morning and get better as the day goes by. Being inactive for a long time, like on a long car ride, may make stiffness worse. Stiffness and aches can be so severe that they cause people to have signs like: ??? Disturbed sleep ??? Trouble getting dressed, such as putting on socks ??? Problems getting in and out of a car or up from a sofa. COMMON TREATMENTS A diagnosis of PMR is hard to confirm. A decay control operator can do blood tests to look for unusually high markers of inflammation, like erythrocyte sedimentation (sed) rate and C-reactive protein. Not everyone with PMR has high levels of these in their blood, but they can help rule out other diseases like rheumatoid arthritis. Low-dose corticosteroids, such as 10-15 mg per day of prednisone (Deltasone, Orasone), can quickly relieve aching and stiffness. If symptoms improve, patients can take lower doses of prednisone, and then taper off the drug after a year. Some people need to take corticosteroids for 2 to 3 years. Symptoms may recur later on. Nonsteroidal anti-inflammatory drugs (NSAIDs), like ibuprofen (Advil, Motrin), or naproxen sodium (Aleve) are not effective for PMR. CARE/MANAGEMENT TIPS If muscle aches and stiffness respond well to treatment, people with PMR can get back to a normal lifestyle and regular exercise. Even low-dose corticosteroids can cause side effects, so get regular check-ups to watch for these signs: ??? High blood pressure ??? Osteoporosis (bone loss) ??? Weight gain ??? Cataracts ??? Sleeplessness ??? Bruising or thinning of skin Older patients may need osteoporosis medications to prevent fractures. Because PMR can occur with giant cell arteritis, let your doctor know if you have headaches, vision changes or fever, which are signs of this disease. ?? 2019 [employer] PREDNISONE (DELTASONE) - Patient Fact Sheet WHAT IS IT? Prednisone (Deltasone) is part of a potent class of anti-inflammatory agents, known as corticosteroids, which are used to control inflammation of the joints and organs. It is often used to treat a variety of inflammatory conditions, including redness, swelling and pain. Prednisone is used to treat rheumatoid arthritis, lupus, vasculitis, and many other inflammatory diseases. HOW TO TAKE IT Dosing of prednisone varies widely depending on the state of the disease being treated. Doses used in rheumatoid arthritis are commonly 5-10 mg daily, while doses needed in lupus and vasculitis are often 80 mg daily, or sometimes higher. Prednisone usually achieves its effect within 1-2 hours. The delayed release tablets take effect about 6 hours after taking the dose. Prednisone stops working soon after stopping the medication. If you have been taking prednisone regularly for longer than 2 weeks, do not stop it suddenly. Instead, you should discuss a tapering schedule with your physician. SIDE EFFECTS Most side effects are related to the dose administered and duration of treatment, so the goal is to use it at the lowest effective dose for the shortest period of time necessary. Some potential side effects include easy bruising, osteoporosis (or weakened bones), diabetes, hypertension, weight gain, cataracts, glaucoma, and a bone disorder called avascular necrosis. Although prednisone rarely has a direct interaction with other medications, there is an increased risk of infection when combining prednisone with other medications that affect your immune system. Additionally, when taking prednisone with NSAIDs (such as naproxen or ibuprofen), there can be an increased risk of stomach ulcers. Make sure to review all of your medications with your physician at each visit. TELL YOUR DOCTOR Your doctor will monitor you for side effects. Be sure to discuss any new symptoms you are experiencing with your doctor. Talk to your doctor about which vaccines are appropriate for you, as it dependson your dose of prednisone. If you are or are considering , discuss this with your doctor before starting medication. Although prednisone can be necessary to use during , complications can include, still , and premature delivery. Babies born from women receiving large doses of corticosteroids during can develop under active adrenal glands and also can be smaller than expected at . Babies can develop cleft lip and cleft palate as well. Although some of the drug passes into breast milk, prednisone appears to be safe while . ?? 2019 [employer] documented in this encounter Ordered Prescriptions Prescription Sig Dispensed Refills Start Date End Date predniSONE (DELTASONE) 5 20 mg daily for 2 120 Tablet 2 02/1603/23/2021 mg tablet week, then taper by 2.5 mg every 2 weeks until down to 10 mg daily or as directed. documented in this encounter Progress Notes Milagros Evans MD - 02/25/2021 1440 EDT [facility] Department of Rheumatology Follow Up Visit PCP Juaquin Iniguez 03/02/2021 History of Present Illness: Estephania Rice is a 65 y.o. female with past medical history of vitiligo, hypertension, was referred to clinic due to 5 months of diffuse myalgia and arthralgia (mostly proximal), morning stiffnessand fatigue. Reports that two days after her first dose of COVID-19 moderna vaccine (09/14/20) she noticed traveling pain over elbows, shoulders, knees. Pain was mild. She had ongoing headaches (occipital), but evenbefore the vaccine (08/28/20). She then followed up with her PCP 09/17/20. During this time, Pain continued to escalate, to the point that she could not roll in bed, dress herself or comb her hair. Her second dose was 10/12/20. Following her second Moderna vaccine, fevers, fell down the stairs. She developed worsening pain, she was also experiencing significant fatigue. She was managing her pain with ibuprofen. At this time, her pain is localized over shoulders, upper arms, neck, periscapular area, hip girdle,thighs and knees. Other areas of pain include MCPs. Denies toe pain. She is not able to squat due toweakness. Reports she is about 40% improved since 09/2020, but still symptomatic. Reports morning stiffness and morning pain and stiffness lasts about 2 to 4 hours later Patient denies scalp sensitivity, vision changes, carotidynia, syncope/presyncope, jaw, tongue or limb claudication Had an episode of double vision, but this was during standing from bending forward. Denies fevers Has not lost more than 3 to 4 pounds. Denies sicca Denies rashes Denies photosensitivity Denies red or painful eyes Denies hearing loss Denies chest pain, shortness of breath or cough. Denies diarrhea Denies Raynaud's Denies paresthesia. Denies personal or family history of psoriasis. Denies lower back pain, not chronic. Denies red or painful eyes. Denies dactylitis. Denies enthesitis. 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 She is up to date with colonoscopy (this or part year). Mammogram is pending. For PAP smear, she is not up to date. Review of Systems: I have reviewed the systems reviewed by the nurse Past Medical History: Diagnosis Date ??? Essential hypertension ??? PMR (polymyalgia rheumatica) ([facility]) ??? Vitiligo Past Surgical History: [...] on file Tobacco Use ??? Smoking status: Not on file Substance and Sexual Activity ??? Alcohol use: Not on file ??? Drug use: Not on file ??? Sexual activity: Not on file Other Topics Concern ??? Not on file Social History Narrative ??? Not on file Social Determinants of Health Financial Resource Strain: ??? Difficulty of Paying Living Expenses: Not on file Food Insecurity: ??? Worried About Running Out of Food in the Last Year: Not on file ??? Ran Out of Food in the Last Year: Not on file Transportation Needs: ??? Lack of Transportation (Medical): Not on file ??? Lack of Transportation (Non-Medical): Not on file Physical Activity: ??? Days of Exercise per Week: Not on file ??? Minutes of Exercise per Session: Not on file Stress: ??? Feeling of Stress : Not on file Social Connections: ??? Frequency of Communication with Friends and Family: Not on file ??? Frequency of Social Gatherings with Friends and Family: Not on file ??? Attends Mu-Ism Services: Not on file ??? Active Member of Clubs or Organizations: Not on file ??? Attends Club or Organization Meetings: Not on file ??? Marital Status: Not on file No Known Allergies Current Outpatient Medications Medication Sig ??? hydroCHLOROthiazide (HYDRODIURIL) 25 mg tablet every 24 hours. ??? ibuprofen (MOTRIN) 800 mg tablet Take 800 mg by mouth every 6 hours as needed for Pain. ??? predniSONE (DELTASONE) 5 mg tablet 20 mg daily for 2 week, then taper by 2.5 mg every 2 weeks until down to 10 mg daily or as directed. Physical exam: BP (!) 177/96 (BP Cuff Location: Left arm, BP Patient Position: Sitting, BP Cuff Sizes: Adult, regular) Pulse 81 Resp 16 Ht 160 cm (63) Wt 54.4 kg (120 lb) LMP (LMP Unknown) BMI 21.26 kg/m?? HEENT: moist oral mucosa, no ulcers Neck: No lymphadenopathy CV: S1 and S2 audible, rhythmic, no murmurs or rubs Respiratory: breath sounds audible throughout, no crackles or wheezing Abdomen: Bowel sounds audible, soft to deep palpation, no hepatomegaly or splenomegaly Skin: no rashes MSK: Neck: Full ROM Shoulders: Pain with active shoulder abduction beyond 90 degrees b/l Elbows:Full ROM, no tenderness or swelling Wrist:Full ROM, no tenderness or swelling Hand:Full ROM, no tenderness or swelling Lower back:Full ROM Hip:Full ROM Knee:Full ROM, no tenderness or swelling Ankles: Full ROM, no tenderness or swelling Feet:Full ROM, no tenderness or swelling Laboratory testing: Component Latest Ref Rng & Units 10/28/2020 11/18/2020 [place] Interpretation Negative Positive (A) [place] Titer Pattern 1:160 Homogeneous Lyme AB Negative Negative CCP Antibodies <5.0 U/mL <2.5 Rheumatoid Factor <12.0 IU/mL <8.6 Imaging: None ordered Problem List: Patient Active Problem List Diagnosis ??? Vitiligo ??? Essential hypertension ??? PMR (polymyalgia rheumatica) ([facility]) Assessment Plan: Polymyalgia rheumatica. Her presentation is most consistent with polymyalgia rheumatica and while I can't proof causality, the temporal correlation with her COVID-19 vaccine, suggests that it may have been triggered by it. Other important trigger to consider is malignancy and I did discuss with her that I strongly encourage her to complete her pending mammogram. As far as other potential autoimmune etiologies for her PMR syndrome, I tested her for RA today and she was negative (per presentation is not classic for it either). She does not have spondyloarthritisfeatures. Occasionally, patients with lupus serologies can present with PMR, and given her positive [place] I willcomplete her lupus serologic work up. I will start her on prednisone at PMR dosing and reassess her. Bone health. Vit D Calcium Will discuss DXA scan at follow up jail systemic steroids Checked baseline hba1c Plan: As outlined in patient's instructions Patient Instructions Labs today Complete age appropriate cancer screening. Start prednisone 20 mg daily for 2 week, taper by 2.5 mg every 2 weeks until down to 10 mg daily, later by 1 mg every 2 weeks until down to 5 mg daily and stay at 5 mg daily until follow up. Take the full dose every morning. Stop Ibuprofen Follow up in 07/2021 Milagros Evans MD POLYMYALGIA RHEUMATICA (PMR) - Patient Fact Sheet CONDITION DESCRIPTION Polymyalgia rheumatica (PMR) is a common condition that involves widespread aching and stiffness. Itoften affects the upper arms, neck, lower back and thighs. Pain and stiffness usually is worse in the mornings. PMR doesn't cause joint swelling, so it can be hard to spot. It may occur along with an autoimmune disease called giant cell arteritis. It's more common after age 50. Women get PMR slightly more often than men and it's more common in Caucasians, but anyone can get PMR. PMR's cause is unknown. It isn't caused by any medications. There is some inflammation in PMR. Some research suggests that PMR pain may be related to inflamed bursae (sacs) in the shoulders or hips. PMR inflammation responds quickly to treatment. SIGNS/SYMPTOMS The most common symptoms of polymyalgia rheumatica are widespread aching, stiff muscles. Symptoms can come on quickly, even overnight. Usually, you feel aches on both sides of your body. It may be hardto raise your arms over your shoulders. Hands and wrists may ache too. PMR aches may be worse in the morning and get better as the day goes by. Being inactive for a long time, like on a long car ride, may make stiffness worse. Stiffness and aches can be so severe that they cause people to have signs like: ??? Disturbed sleep ??? Trouble getting dressed, such as putting on socks ??? Problems getting in and out of a car or up from a sofa. COMMON TREATMENTS A diagnosis of PMR is hard to confirm. A decay control operator can do blood tests to look for unusually high markers of inflammation, like erythrocyte sedimentation (sed) rate and C-reactive protein. Not everyone with PMR has high levels of these in their blood, but they can help rule out other diseases like rheumatoid arthritis. Low-dose corticosteroids, such as 10-15 mg per day of prednisone (Deltasone, Orasone), can quickly relieve aching and stiffness. If symptoms improve, patients can take lower doses of prednisone, and then taper off the drug after a year. Some people need to take corticosteroids for 2 to 3 years. Symptoms may recur later on. Nonsteroidal anti-inflammatory drugs (NSAIDs), like ibuprofen (Advil, Motrin), or naproxen sodium (Aleve) are not effective for PMR. CARE/MANAGEMENT TIPS If muscle aches and stiffness respond well to treatment, people with PMR can get back to a normal lifestyle and regular exercise. Even low-dose corticosteroids can cause side effects, so get regular check-ups to watch for these signs: ??? High blood pressure ??? Osteoporosis (bone loss) ??? Weight gain ??? Cataracts ??? Sleeplessness ??? Bruising or thinning of skin Older patients may need osteoporosis medications to prevent fractures. Because PMR can occur with giant cell arteritis, let your doctor know if you have headaches, vision changes or fever, which are signs of this disease. ?? 2019 [employer] PREDNISONE (DELTASONE) - Patient Fact Sheet WHAT IS IT? Prednisone (Deltasone) is part of a potent class of anti-inflammatory agents, known as corticosteroids, which are used to control inflammation of the joints and organs. It is often used to treat a variety of inflammatory conditions, including redness, swelling and pain. Prednisone is used to treat rheumatoid arthritis, lupus, vasculitis, and many other inflammatory diseases. HOW TO TAKE IT Dosing of prednisone varies widely depending on the state of the disease being treated. Doses used in rheumatoid arthritis are commonly 5-10 mg daily, while doses needed in lupus and vasculitis are often 80 mg daily, or sometimes higher. Prednisone usually achieves its effect within 1-2 hours. The delayed release tablets take effect about 6 hours after taking the dose. Prednisone stops working soon after stopping the medication. If you have been taking prednisone regularly for longer than 2 weeks, do not stop it suddenly. Instead, you should discuss a tapering schedule with your physician. SIDE EFFECTS Most side effects are related to the dose administered and duration of treatment, so the goal is to use it at the lowest effective dose for the shortest period of time necessary. Some potential side effects include easy bruising, osteoporosis (or weakened bones), diabetes, hypertension, weight gain, cataracts, glaucoma, and a bone disorder called avascular necrosis. Although prednisone rarely has a direct interaction with other medications, there is an increased risk of infection when combining prednisone with other medications that affect your immune system. Additionally, when taking prednisone with NSAIDs (such as naproxen or ibuprofen), there can be an increased risk of stomach ulcers. Make sure to review all of your medications with your physician at each visit. TELL YOUR DOCTOR Your doctor will monitor you for side effects. Be sure to discuss any new symptoms you are experiencing with your doctor. Talk to your doctor about which vaccines are appropriate for you, as it dependson your dose of prednisone. If you are or are considering , discuss this with your doctor before starting medication. Although prednisone can be necessary to use during , complications can include, still , and premature delivery. Babies born from women receiving large doses of corticosteroids during can develop under active adrenal glands and also can be smaller than expected at . Babies can develop cleft lip and cleft palate as well. Although some of the drug passes into breast milk, prednisone appears to be safe while . ?? 2019 [employer] I spent a total of 60 minutes on the date of this encounter meeting with the patient and reviewing documentation/coordinating care as described in the above note. No procedures were performed at the time of the visit. Milagros Evans MD Department of Rheumatology Attending Physician Pager: [phone] Addenda: Reviewed results with patient on 03/02/21 Component Latest Ref Rng & Units 02/25/2021 WBC 4.00 - 12.40 K/cmm 8.84 RBC 3.86 - 5.04 M/cmm 5.57 (H) Hemoglobin 11.6 - 15.2 gm/dL 15.4 (H) HCT 34.9 - 44.4 % 47.4 (H) MCV 81 - 98 fl 85 MCH 26.7 - 33.3 pg 27.6 MCHC 32.1 - 35.9 gm/dL 32.5 RDW-CV <14.7 % 13.3 RDW-SD <50.4 fl 41.5 PLT 141 - 377 K/cmm 346 MPV 9.5 - 12.7 fl 9.0 (L) Neutrophils % 63.3 Lymphocytes % 26.9 Monocytes % 7.4 Eosinophils % 1.5 Basophils % 0.6 Immature Grans % 0.3 ABS Neutrophils 2.20 - 8.85 K/cmm 5.60 ABS Lymphs 1.09 - 3.30 K/cmm 2.38 ABS Monocytes 0.10 - 0.80 K/cmm 0.65 ABS Eosinophils 0.03 - 0.61 K/cmm 0.13 ABS Basophils 0.01 - 0.11 K/cmm 0.05 ABS Immature Grans 0.00 - 0.06 K/cmm 0.03 Type of Diff: Auto Color Colorless, Yellow Yellow Clarity, UA Clear Clear Glucose, UA Negative Negative Bilirubin, UA Negative Negative Ketones Negative Negative Specific [place], Urine 1.001 - 1.035 1.014 Blood, UA Negative Negative Urobilinogen, UA Normal mg/dL Normal Nitrite Negative Negative Leuk Esterase Negative Negative Protein, UA Negative Negative pH, UA 4.6 - 8.0 6.5 RBC, UA 0 - 2 Cells/HPF 0 - 2 WBC, UA 0 - 3 Cells/HPF 0 - 3 Urine Squamous Count, Auto None Seen Cells/HPF None Seen Urine Hyaline Casts, Automated <=10 Casts/LPF <=10 Bacteria, UA None Seen Bacteria/HPF None Seen Sodium 136 - 145 mmol/L 141 Potassium 3.5 - 5.0 mEq/L 4.1 Chloride 96 - 110 mEq/L 96 CO2 22 - 32 mEq/L 33 (H) Glucose, Serum 70 - 100 mg/dL 105 (H) BUN 10 - 26 mg/dL 23 Creatinine 0.52 - 1.04 mg/dL 0.81 GFR, Calculated >60 mL/min/1.73m2 76 Total Protein 6.3 - 8.2 g/dL 7.6 Albumin 3.4 - 4.9 g/dL 4.8 Total Alkaline Phosphatase 38 - 126 U/L 62 AST 15 - 46 U/L 24 ALT <35 U/L 19 Bilirubin, Total <1.4 mg/dL <0.5 Calcium 8.5 - 10.5 mg/dL 10.2 Calculated Calcium 8.5 - 10.5 mg/dL 9.6 [place] Interpretation Negative [place] Titer Pattern Hemoglobin A1C <5.7 % 6.1 (H) Est Avg Glucose mg/dL 128 Lyme AB Negative CCP Antibodies <5.0 U/mL Rheumatoid Factor <12.0 IU/mL C4 Complement 13 - 39 mg/dL 36 C3 Complement 81 - 157 mg/dL 151 Anti DNA (DS) <30.0 IU/mL 16.4 Sm ([place]) Antibody <20.0 Units 2.7 FREEZER MACHINE OPERATOR Antibody <20.0 Units 4.2 SSA Antibody <20.0 Units 3.8 SSB Antibody <20.0 Units 1.1 25OH Vitamin D Tot 30.0 - 100.0 ng/mL 24.7 (L) TSH 0.47 - 4.68 uIU/mL 2.69 Noticed prediabetes and low vit D Reports she had a visit with her PCP and he is aware Will monitor her weight. If she continues to lose weight, will pursue rg scanning in search for hidden malignancy. Milagros Evans MD documented in this encounter Plan of Treatment Upcoming Encounters Date Type Specialty Care Team Description 01/25/2022 Office Visit Rheumatology Milagros Evans MD [address] [place] [address], [facility], [address] [place], [place] [address] (Wo rk) documented as of this encounter Results TSH (02/25/2021 16:31 EDT) Pathologist Sig nature TSH 2.69 0.47 - 4.68 uIU/mL [facility] Specimen Blood - Venous blood (substance) Narrative [facility] LABORATORY SERVICES - 02/25/2021 18:05 EDT The results of this assay can be falsely lowered due to the consumption of Biotin. Performing Organization Address [facility] Code Phon e Number [facility] LABORATORY [address] [place] [address] SERVICES (ABNORMAL) VITAMIN D (25,OH) (02/25/2021 16:31 EDT) 25OH Vitamin D 24.7 (L) 30.0 - 100.0 [facility] Comment: ng/mL CENTER LABORATORY Vitamin D 25,OH Interpretive Ranges: SERV ICES Deficiency: ??<10.0 ng/mL Insufficiency: ??10.0 - 30.0 ng/mL Sufficiency: ??30.0 - 100.0 ng/mL Toxicity: ??>100.0 ng/mL Specimen Blood - Venous blood (substance) Performing Organization Address [facility] Phon e Number [facility]OR[facility] [address] [place] [address] SERVICES (ABNORMAL) HEMOGLOBIN A1C (02/25/2021 16:31 EDT) Hemoglobin A1c 6.1 (H) <5.7 % [facility] Comment: LABORATORY SERVICES New methodology in use [...] Est Avg Glucose 128Comment: The eAG mg/dL [facility] represents the A1c LABORATORY SERVICES result expressed as average glucose in mg/dL. Specimen Blood - Venous blood (substance) Performing Organization Address [facility] e Number [facility]ORATORY [address] [place] [address] SERVICES SSB ANTIBODIES BY NORM (02/25/2021 16:31 EDT) SSB Antibody 1.1 <20.0 Units [facility] Comment: LABORATORY SERVICES ? Negative: <20.0 Units ? Weak Positive: 20.0 - 39.9 Units ? Moderate Positive: 40.0 - 80.0 Unit s ? Strong Positive: >80.0 Units Results were obtained with [employer] QUANTA Lite SS-B NORM. ??SS-B values obtained with different manufacturers' assay methods may not be used interchangeably. ??The magnitude of the reported IgG levels cannot be correlated to an endpoint titer. Specimen Blood - Venous blood (substance) Performing Organization Address [facility] e Number [facility]ORATORY [address] [place] [address] SERVICES SSA ANTIBODIES BY NORM (02/25/2021 16:31 EDT) SSA Antibody 3.8 <20.0 Units [facility] Comment: LABORATORY SERVICES ? Negative: <20.0 Units ? Weak Positive: 20.0 - 39.9 Units ? Moderate Positive: 40.0 - 80.0 Unit s ? Strong Positive: >80.0 Units Results were obtained with [employer] QUANTA Lite SS-A NORM. ??SS-A values obtained with different manufacturers' assay methods may not be used interchangeably. ??The magnitude of the reported IgG levels cannot be correlated to an endpoint titer. Specimen Blood - Venous blood (substance) Performing Organization Address [facility] e [facility] LABORATORY [address] [place] [address] SERVICES FREEZER MACHINE OPERATOR ANTIBODIES BY NORM (02/25/2021 16:31 EDT) FREEZER MACHINE OPERATOR Antibody 4.2 <20.0 Units [facility] Comment: LABORATORY SERVICES ? Negative: <20.0 Units ? Weak Positive: 20.0 - 39.9 Units ? Moderate Positive: 40.0 - 80.0 Unit s ? Strong Positive: >80.0 Units Results were obtained with Rankomat.pla Lite FREEZER MACHINE OPERATOR NORM. FREEZER MACHINE OPERATOR values obtained with different parimutuel ticket seller's assay methods may not be used interchangeaby. ??The magnitude of the reported IgG levels cannot be be correlated to an endpoint titer. A positive result in the Flynn nta Lite FREEZER MACHINE OPERATOR NORM indicates the presence of antibodies reactive with the FREEZER MACHINE OPERATOR/Sm complex but cannot distinguish between anti- Sm and anti-FREEZER MACHINE OPERATOR activity. Specimen Blood - Venous blood (substance) Performing Organization Address [facility] LABORATORY [address] [place] [address] SERVICES SM (PIEDRA) ANTIBODY (02/25/2021 16:31 EDT) SM (Piedra) 2.7 <20.0 Units [facility] Antibody Comment: LABORATORY ? Negative: <20.0 Units SERVICES ? Weak Positive: 20.0 - 39.9 Units ? Moderate Positive: 40.0 - 80.0 Unit s ? Strong Positive: >80.0 Units Results were obtained with CarousellA Lite Sm NORM. ??Sm values obtained with different manufacturers' assay methods may not be used interchangeably. ??The magnitude of the reported IgG levels cannot be correlated to an endpoint titer. Specimen Blood - Venous blood (substance) Performing Organization Address [facility] e Number [facility] [address] [place] [address] SERVICES ANTI DNA (DOUBLE STRANDED) (02/25/2021 16:31 EDT) Anti-DNA (Double 16.4 <30.0 IU/mL [facility] Stranded) Comment: LABORATORY ? SERV ICES ? Negative: ??<30.0 IU/mL ? Borderline Positive: ??30.0 - 75.0 IU/mL ? Positive: ??>75.0 IU/mL Results were obtained with ana m Loco2A CloudFactorye dsDNA SC NORM assay on the PushforX. Specimen Blood - Venous blood (substance) Performing Organization Address City/[facility]/ZIP [facility] Phon e Number [facility] [address] [place] [address] SERVICES C3 COMPLEMENT (02/25/2021 16:31 EDT) Pathologist Sig nature C3 Complement 151 81 - 157 mg/dL [facility] LABORATORY SERVICES Specimen Blood - Venous blood (substance) Performing Organization Address City/[facility]/ZIP Code Phon e Number [facility] [address] [place] [address] SERVICES C4 COMPLEMENT (02/25/2021 16:31 EDT) Pathologist Sig nature C4 Complement 36 13 - 39 mg/dL [facility] LABORAT ORY SERVICES Specimen Blood - Venous blood (substance) Performing Organization Address [facility]/ZIP [facility] Phon e Number [facility] [address] [place] [address] SERVICES (ABNORMAL) COMPREHENSIVE METABOLIC PANEL (CMP) (02/25/2021 16:31 EDT) Sodium 141 136 - 145 [facility] mmol/L [facility] SERVICES Potassium 4.1 3.5 - 5.0 [facility] mEq/L [facility] SERVICES Chloride 96 96 - 110 [facility] mEq/L [facility] CO2 Total 33 (H) 22 - 32 mEq/L [facility]AT[facility] SERVICES Glucose 105 (H) 70 - 100 [facility] mg/dL [facility] SERVICES BUN 23 10 - 26 mg/dL [facility]ORATORY SERVICES Creatinine 0.81 0.52 - 1.04 [facility] mg/dL [facility] SERVICES eGFR 76Comment: eGFR >60 [facility] calculated using mL/min/1.73m2 [facility] LAB[facility]ATORY CKD-EPI equation SERVICES for non- Americans. Multiply eGFR by 1.16 for patients. Total Protein 7.6 6.3 - 8.2 [facility] g/dL [facility] Albumin 4.8 3.4 - 4.9 [facility] g/dL [facility] Alkaline 62 38 - 126 U/L [facility] Phosphatase [facility] AST 24 15 - 46 U/L [facility]ORAT[facility] SERVICES ALT 19 <35 U/L [facility]OR[facility]ORY SERVICES Bilirubin, Total <0.5 <1.4 mg/dL [facility] LABORATORY SERVICES Calcium 10.2 8.5 - 10.5 [facility] mg/dL [facility] Calculated Calcium 9.6 8.5 - 10.5 [facility] mg/dL [facility] SERVICES Specimen Blood - Venous blood (substance) Performing Organization Address City/State/ZIP Code Phon e Number [facility]OR[facility] [address] [place] [address] SERVICES (ABNORMAL) COMPLETE BLOOD COUNT AND DIFFERENTIAL (02/25/2021 16:31 EDT) WBC 8.84 4.00 - 12.40 [facility] K/[facility] LABORATORY SERVICES RBC 5.57 (H) 3.86 - 5.04 [facility] M/[facility] LABORATORY SERVICES Hemoglobin 15.4 (H) 11.6 - 15.2 [facility] gm/dL LABORATORY SERVICES HCT 47.4 (H) 34.9 - 44.4 % [facility] LABORATORY SERVICES MCV 85 81 - 98 fl [facility] LABORATORY SERVICES MCH 27.6 26.7 - 33.3 pg [facility] LABORATORY SERVICES MCHC 32.5 32.1 - 35.9 [facility] gm/dL LABORATORY SERVICES RDW-CV 13.3 <14.7 % [facility] LABORATORY SERVICES RDW-SD 41.5 <50.4 fl [facility] LABORATORY SERVICES PLT 346 141 - 377 /[facility] LABORATORY SERVICES MPV 9.0 (L) 9.5 - 12.7 fl [facility] LABORATORY SERVICES Neutrophils 63.3 % [facility] LABORATORY SERVICES Lymphocytes 26.9 % [facility] LABORATORY SERVICES Monocytes 7.4 % [facility] LABORATORY SERVICES Eosinophils 1.5 % [facility] LABORATORY SERVICES Basophils 0.6 % [facility] LABORATORY SERVICES Immature Grans 0.3 % [facility] LABORATORY SERVICES Absolute Neutrophils 5.60 2.20 - 8.85 [facility] LABORATORY SERVICES Absolute Lymphocytes 2.38 1.09 - 3.30 [facility] LABORATORY SERVICES Absolute Monocytes 0.65 0.10 - 0.80 [facility] LABORATORY SERVICES Absolute Eosinophils 0.13 0.03 - 0.61 [facility] LABORATORY SERVICES Absolute Basophils 0.05 0.01 - 0.11 [facility] LABORATORY SERVICES Absolute Immature 0.03 0.00 - 0.06 [facility] Grans [facility] LABORATORY SERVICES Type of Differential: Auto [facility] LABORATORY SERVICES Specimen Blood - Venous blood (substance) Performing Organization Address City/State/ZIP Code Phon e Number [facility]ORATORY [address] [place] [address] SERVICES URINE CHEMICAL (DIP) & SEDIMENT (MICRO) WITHOUT REFLEX TO CULTURE (02/25/2021 16:30 EDT) Color UA Yellow Colorless, Yellow [facility] LABORATORY SERVICES Clarity UA Clear Clear [facility] LABORATORY SERVICES Glucose UA Negative Negative [facility] LABORATORY SERVICES Bilirubin UA Negative Negative [facility] LABORATORY SERVICES Ketones UA Negative Negative [facility] LABORATORY SERVICES Specific [place], 1.014 1.001 - 1.035 [facility] Urine LABORATORY SERVICES Blood UA Negative Negative [facility] LABORATORY SERVICES Urobilinogen UA Normal Normal mg/dL [facility] LABORATORY SERVICES Nitrite UA Negative Negative [facility] LABORATORY SERVICES Leukocyte Esterase UA Negative Negative [facility] LABORATORY SERVICES Protein UA Negative Negative [facility] LABORATORY SERVICES pH, UA 6.5 4.6 - 8.0 [facility] LABORATORY SERVICES Urine RBC Count, Auto 0 - 2 0 - 2 Cells/HPF [facility] LABORATORY SERVICES Urine WBC Count, Auto 0 - 3 0 - 3 Cells/HPF [facility] LABORATORY SERVICES Urine Squamous Count, None Seen None Seen [facility] Auto Cells/HPF LABORATORY SERVICES Urine Hyaline Cast <=10 <=10 Casts/LPF [facility] Count, Auto LABORATORY SERVICES Urine Bacteria Count, None Seen None Seen [facility] Auto Bacteria/HPF LABORATORY SERVICES Specimen Urine - Urine specimen collection, clean catch (procedure) Narrative [facility] LABORATORY SERVICES - 02/25/2021 17:44 EDT Urine Sediment Analysis results are unre liable on urines that are unrefrigerated for >2 hrs or refrigerated >8 hrs. Performing Organization Address City/State/ZIP Code Phon e Number [facility] LABORATORY [address] [place] [address] SERVICES documented in this encounter Visit Diagnoses Diagnosis Polymyalgia rheumatica ([facility]) ([facility]) - Primary Polymyalgia rheumatica Positive [place] (antinuclear antibody) Other and unspecified nonspecific immuno logical findings Diabetes mellitus screening Screening for diabetes mellitus Abnormal finding of blood chemistry, uns pecified Vitamin D deficiency Unspecified vitamin D deficiency Myalgia Mylagia and myositis, unspecified documented in this encounter Historical Medications This list may reflect changes made after this encounter. Medication Sig Dispensed Refills Start Date End Date ibuprofen (MOTRIN) 800 mg Take 800 mg by 0 tablet mouth every 6 hours as needed for Pain. hydroCHLOROthiazide every 24 hours. 0 08/12/2021 (HYDRODIURIL) 25 mg tablet added in this encounter Care Teams Termite Inspector Relationship Specialty Start Date End Date Juaquin Iniguez MD PCP - General 02/23/21 [address] [place] [address] documented as of this encounter
--- OUTSIDE RECORDS SUMMARY | 2021-12-20 10:53 | XMS_ITS | Encounter Summary ---
:1955 Author Organization [facility] Address [address] [place] [address] Care Team Providers Name Role Phone Juaquin Iniguez MD Primary Care Provider Reason for Visit Laboratory Services (Routine/Next Available) - New Request Specialty Diagnoses / Procedures Referred By Contact Refer red To Contact Diagnoses PMR (polymyalgia rheumatica) ([facility]) ([facility]) Milagros Evans MD Procedures C REACTIVE PROTEIN [address] [facility], [address] [place] [address] Referral ID Status Reason Start Date Expiration Date Visits V isits Requested Authorized [id number] New Request 09/14/2021 1 1 Encounter Details Date Type Department Care Team Description 09/14/2021 Phlebotomy Only [facility] ED Center 2 Green Feed Attendant, Acc PMR (p olymyalgia Phlebotomy Phlebotomy rheumatica) [address] [facility] ([facility]) ([facility]) [place] [address] Social History Tobacco Use Types Packs/Day Years [...] Office Visit Rheumatology Milagros Evans MD [address] [facility], [facility], [address] [place], [place] [address] (Wo rk) documented as of this encounter Procedures Procedure Name Priority Date/Time Associated Comments Diagnosis ALDOLASE Routine 09/14/2021 11:54 PMR (polymyalgia Results for this EDT rheumatica) procedure are i n ([facility]) ([facility]) the results section. SED RATE Routine 09/14/2021 11:54 PMR (polymyalgia Results for this EDT rheumatica) procedure are i n ([facility]) ([facility]) the results section. COMPLETE BLOOD COUNT Routine 09/14/2021 11:54 PMR (polymyalgia Results for this AND DIFFERENTIAL EDT rheumatica) procedure a re in ([facility]) ([facility]) the results section. C REACTIVE PROTEIN Routine 09/14/2021 11:54 PMR (polymyalgia R esults for this EDT rheumatica) procedure are i n ([facility]) ([facility]) the results section. CK Routine 09/14/2021 11:54 PMR (polymyalgia Results for this EDT rheumatica) procedure are i n ([facility]) ([facility]) the results section. documented in this encounter Results ALDOLASE (09/14/2021 11:54 EDT) Aldolase, S 5.1 <7.7 U/L [facility] Comment: LABORATORIES Test Performed by: [facility] - [address] [address] [employer]: Gabriel Hannon M.D. Ph.D.; CLIA# [id number] Specimen Blood - Venous blood (substance) Performing Organization Address City/[facility]/ZIP Code Phon e Number [facility] LABORATORIES [address] [place] [phone] CK (09/14/2021 11:54 EDT) Pathologist Sig nature CK 62 30 - 135 U/L [facility] LABORATOR Y SERVICES Specimen Blood - Venous blood (substance) Performing Organization Address City/State/ZIP Code Phon e Number [facility] LABORATORY [address] [place] [address] SERVICES SED RATE (09/14/2021 11:54 EDT) Pathologist Sig nature Sed Rate 2 0 - 30 mm/hr [facility] LABORATOR Y SERVICES Specimen Blood - Venous blood (substance) Performing Organization Address City/[facility]/ZIP Code Phon e Number [facility] LABORATORY [address] [place] [phone] SERVICES C REACTIVE PROTEIN (09/14/2021 11:54 EDT) Pathologist Sig nature C-Reactive Protein <7.0 <10.0 mg/L [facility] LABORATORY SERVICES Specimen Blood - Venous blood (substance) Performing Organization Address City/[facility]/ZIP Code Phon e Number [facility] LABORATORY [address] [place] [address] SERVICES (ABNORMAL) COMPLETE BLOOD COUNT AND DIFFERENTIAL (09/14/2021 11:54 EDT) WBC 8.96 4.00 - 12.40 [facility] K/m LABORATORY SERVICES RBC 5.05 (H) 3.86 - 5.04 [facility] M/[facility] LABORATORY SERVICES Hemoglobin 15.2 11.6 - 15.2 [facility] gm/dL LABORATORY SERVICES HCT 46.3 (H) 34.9 - 44.4 % [facility] LABORATORY SERVICES MCV 92 81 - 98 fl [facility] LABORATORY SERVICES MCH 30.1 26.7 - 33.3 pg [facility] LABORATORY SERVICES MCHC 32.8 32.1 - 35.9 [facility] gm/dL LABORATORY SERVICES RDW-CV 13.2 <14.7 % [facility] LABORATORY SERVICES RDW-SD 45.0 <50.4 fl [facility] LABORATORY SERVICES PLT 293 141 - 377 /[facility] LABORATORY SERVICES MPV 9.1 (L) 9.5 - 12.7 fl [facility] LABORATORY SERVICES Neutrophils 77.5 % [facility] LABORATORY SERVICES Lymphocytes 15.1 % [facility] LABORATORY SERVICES Monocytes 5.6 % [facility] LABORATORY SERVICES Eosinophils 0.8 % [facility] LABORATORY SERVICES Basophils 0.6 % [facility] LABORATORY SERVICES Immature Grans 0.4 % [facility] LABORATORY SERVICES Absolute Neutrophils 6.95 2.20 - 8.85 [facility] LABORATORY SERVICES Absolute Lymphocytes 1.35 1.09 - 3.30 [facility] K/[facility] LABORATORY SERVICES Absolute Monocytes 0.50 0.10 - 0.80 [facility] LABORATORY SERVICES Absolute Eosinophils 0.07 0.03 - 0.61 [facility] LABORATORY SERVICES Absolute Basophils 0.05 0.01 - 0.11 [facility] LABORATORY SERVICES Absolute Immature 0.04 0.00 - 0.06 [facility] Gr[facility] LABORATORY SERVICES Type of Differential: Auto [facility] LABORATORY SERVICES Specimen Blood - Venous blood (substance) Performing Organization Address City/State/ZIP Code Phon e Number [facility] LABORATORY [address] [place] [address] SERVICES documented in this encounter Visit Diagnoses Diagnosis PMR (polymyalgia rheumatica) ([facility]) ( [facility]) Polymyalgia rheumatica documented in this encounter Care Teams Paint Prepper Relationship Specialty Start Date End Date Juaquin Iniguez MD PCP - General 02/23/21 [address] [place] [address] documented as of this encounter
--- OUTSIDE RECORDS SUMMARY | 2021-12-20 10:53 | XMS_ITS | Encounter Summary ---
:1955 Author Organization [facility] Address [address] [place] [address] Care Team Providers Name Role Phone Unknown, Provider Primary Care Provider Encounter Details Date Type Department Care Team Description 10/18/2018 Results Only [facility]- Jj Antoine MD [phone] [address] [place], [place] [address] (Wo rk) Social History Tobacco Use Types Packs/Day Years Used Date Never Assessed Sex Assigned at Date Recorded Not on file documented as of this encounter Plan of Treatment Upcoming Encounters Date Type Specialty Care Team Description 01/25/2022 Office Visit Rheumatology Milagros Evans MD [address] [facility], [facility], [address] [place], [place] [address] (Wo rk) documented as of this encounter Procedures Procedure Name Priority Date/Time Associated Diagnosis Comme nts PAP TEST- RESULT Routine 10/18/2018 0:00 EDT Resu lts for this ONLY procedure are i n the results section. documented in this encounter Results PAP TEST- RESULT ONLY (10/18/2018 0:00 EDT) Pathology Report: CYTOPATHOLOGY REPORT [facility] Reports generated via electronic interface contain celeste ginal data; SERVICES however they are lacking the format of the original re port. Caution should be taken when reading/interpreting unfo rmatted reports. Name: ? KIERRA RICEYSTYNA ? Accession #: ? [id number] : ? 1955 (Age: [age]) ??F ?Collect Date: ? 2018 Location: ? [facility] ? Receive Date : ? 10/23/2018 Provider: ?JJ JACOME MD Copy to: ? Specimen/Source: ? Pap Test, Cervix/Endocervix, ThinPrep Imaging System with manual evaluation Last Menstrual Period: ? Other: ? Additional clinical information: Z12.4 Z01.419 ? SPECIMEN ADEQUACY ? Unsatisfactory for Evaluation - Insufficient numbers of squamous epith elial cells (less than 10% of expected cellularity) possibly due to lubricant GENERAL CATEGORIZATION ? Specimen processed and examined, but unsatisfac tory for evaluation of epithelial abnormality. Recommend Pap test in 2- 4 months as stated in ASCCP's 2012 Updated Guidelines. HPV testing will not be performed due to the potential for false negative results. ? Document reviewed and electronically signed by: ? SUMAYA Jimenez(ASCP) ? Report Date: ??10/24/2018 13:02 End of Report Specimen Performing Organization Address City/State/ZIP Code Phon e Number [facility] [address] [place] [address] SERVICES documented in this encounter Visit Diagnoses Not on filedocumented in this encounter Care Teams Hospitalist Physician Relationship Specialty Start Date End Date Unknown, Provider, PCP - General 09/02/15 02/22/21 documented as of this encounter
--- OUTSIDE RECORDS SUMMARY | 2021-12-20 10:53 | XMS_ITS | Encounter Summary ---
:[address] [facility] Address [address] [place] [address] Care Team Providers Name Role Phone Unknown, Provider Primary Care Provider Juaquin Iniguez MD Primary Care Provider Reason for Visit Reason Onset Date Comments Appointment Related 01/31/2021 Encounter Details Date Type Department Care Team Description 01/31/2021 Telephone [facility] Milagros Evans Appoint ment Related Rheumatology & MD [facility] - [address], [address], [address] [place], [place] [address] [place] [address] [phone] (Wo rk) Social History Tobacco Use Types Packs/Day Years Used Date Never Assessed Sex Assigned at Date Recorded Not on file documented as of this encounter Miscellaneous Notes Telephone Encounter - Krzysztof Fung - 01/31/2021 1137 EDT Spoke with patient and let her know that her daughter can join by zoom, sent zoom link to email below and updated appt notes elephone Encounter - Alcon Samantha - 01/31/2021 1028 EDT Patient is calling to ask if we can arrange for her daughter to access her 02/25 appointment via zoom. Patient will still come in person. Patient's daughter, Loly, will try to come in person with patient, but she may not be able to make it. Loly's email address is: [email or web address] Please call patient to inform if we can accommodate and send zoom link to daughter. documented in this encounter Plan of Treatment Upcoming Encounters Date Type Specialty Care Team Description 01/25/2022 Office Visit Rheumatology Milagros Evans MD [address] [facility], [facility], [address] [place], [place] [phone] (Wo rk) documented as of this encounter Visit Diagnoses Not on filedocumented in this encounter Care Teams Stock Handler Relationship Specialty Start Date End Date Unknown, Provider, PCP - General 09/02/15 02/22/21 Juaquin Iniguez MD PCP - General 02/23/21 [address] [place] [address] documented as of this encounter
--- OUTSIDE RECORDS SUMMARY | 2021-12-20 10:53 | XMS_ITS | Encounter Summary ---
:1955 Author Organization [facility] Address [address] [place] [address] Care Team Providers Name Role Phone Juaquin Iniguez MD Primary Care Provider Reason for Visit Reason Onset Date Comments Coordination Of Care 03/02/2021 Encounter Details Date Type Department Care Team Description 03/02/2021 Telephone [facility] Milagros Evans [facility] Rheumatology & MD Amisha Immunology - [address] [address] [place], [place] [address] (Wo rk) Social History Tobacco [...] making decisions? documented as of this encounter Miscellaneous Notes Telephone Encounter - Ellen Renee RN - 03/03/2021 1310 EDT Last progress note and labs faxed to Dr. Iniguez's office. Pt was notified. Telephone Encounter - Yoselin Ball - 03/02/2021 1021 EDT Patient calling would like her results sent to Dr. Iniguez to him today as she has an appointment at2:00 and hoping he can get the results by then. Also, wanting to advise that she is doing better. Please call back to let her know when this has been done. documented in this encounter Plan of Treatment Upcoming Encounters Date Type Specialty Care Team Description 01/25/2022 Office Visit Rheumatology Milagros Evans MD [address] [facility], [address] [place], [place] [phone] (Wo rk) documented as of this encounter Visit Diagnoses Not on filedocumented in this encounter Care Teams Electrical Engineer Mep Relationship Specialty Start Date End Date Juaquin Iniguez MD PCP - General 02/23/21 [address] [place] [address] documented as of this encounter
--- OUTSIDE RECORDS SUMMARY | 2021-12-20 10:53 | XMS_ITS | Encounter Summary ---
:1955 Author Organization [facility] Address [address] [place] [address] Care Team Providers Name Role Phone Juaquin Iniguez MD Primary Care Provider Reason for Visit Reason Onset Date Comments Coordination Of Care 03/01/2021 Encounter Details Date Type Department Care Team Description 03/01/2021 Telephone [facility] Milagros Evans [facility] Rheumatology & MD Amisha Immunology - [address] [address] [place], [place] [address] (Wo rk) Social History Tobacco [...] this encounter Miscellaneous Notes Telephone Encounter - Maren Cage - 03/01/2021 1532 EDT Patient called to joni Evans. Patient is doing better, but it is up and down. It has been 4 dayson Prednisone. But today she has felt worse. Please call to discuss. documented in this encounter Plan of Treatment Upcoming Encounters Date Type Specialty Care Team Description 01/25/2022 Office Visit Rheumatology Milagros Evans MD 111 [facility], [facility], [address] [place], [place] [phone] (Wo rk) documented as of this encounter Visit Diagnoses Not on filedocumented in this encounter Care Teams Household Chores Relationship Specialty Start Date End Date Juaquin Iniguez MD PCP - General 02/23/21 [address] [place] [address] documented as of this encounter
--- OUTSIDE RECORDS SUMMARY | 2021-12-20 10:53 | XMS_ITS | Encounter Summary ---
:[address] [facility] Address [address] [place] [address] Care Team Providers Name Role Phone Juaquin Iniguez MD Primary Care Provider Reason for Visit Reason Comments Follow-up 6 month, PMR Telemedicine Phone Call Joint Pain INcreased back pain, all ove r the body, knee, calves, shoulders - Travels around d ifferent area Medication Management felt best at 17.5 mg of Pred isone - when tapering the pain is increasing Labs Only Lab result concerns - A1C, C K, Muscle Pain Biceps, Arms Bothering when doing bras, Encounter Details Date Type Department Care Team Description 08/12/2021 Telemedicine [facility] Milagros Evans PMR (po lymyalgia Rheumatology & MD Amisha rheumatica) Immunology - [address] ([facility] ) ([facility]) [address] (Primary Dx) [address] [place] [address] [address], [place] [phone] (Wo rk) Social History Tobacco Use Types Packs/Day Years Used Date Never Smoker Smokeless Tobacco: Never Used Sex Assigned at Date Recorded Not on file documented as of this encounter Functional Status Functional Status Response Date of Assessment Because of a physical, mental, or emotional condition, Yes 08/12/2021 does this person have difficulty doing errands alone such as visiting a doctor's office or shopping? Cognitive Status Response Date of Assessment Because of a physical, mental, or emotional condition, No 02/25/2021 does this person have serious difficulty concentrating, remembering, or making decisions? documented as of this encounter Progress Notes Milagros Evans MD - 08/12/2021 1340 EST Images from the original note were not included. Division of Rheumatology and Clinical Immunology Telephone Visit Note The concept of ???Telemedicine?? has been described to the patient.? Patient has been informed of the anticipated benefits and possible risks.? Patient understands the information provided regarding telemedicine, has had the opportunity to ask questions about this information, and all questions havebeen answered to patient???s satisfaction. Patient consents for the use of telemedicine in his/her medical care and authorizes the transmission of any relevant medical information to providers and their staff involved in patient???s medical or mental health care. Patient understands that they may be responsible for copays, deductible or coinsurance for this service. TELEMEDICINE PHONE VISIT Today's visit was provided through telemedicine video conferencing: I have reviewed the appropriateness of using video technology with the patient with regards to today's visit. The location of the patient : Home Patient location state: Visit Location State: [place] The location of the provider: Office Provider location state: Visit Location State: [place] The following people and their roles were present for today's visit: Appointment Provider: Milagros Evans MD Alana Margot Nevares, MD TELEPHONE FOLLOW UP NOTE: Date of Service: 08/12/21 Reason for follow up: Polymyalgia Rheumatica. History of Present Illness: Prior to starting the visit verbal consent for telepPHONE visit was obtained. Estephania Rice is a 66 y.o. female. with past medical history of vitiligo, hypertension, was referred to clinic due to 5 months of diffuse myalgia and arthralgia (mostly proximal), morning stiffnessand fatigue. Initially assessed 02/25/21. ?? During the our initial visit, she reported that two days after her first dose of COVID-19 Moderna vaccine (09/14/20) she noticed migratory joint pain over elbows, shoulders, knees. Pain was mild. She had ongoing headaches (occipital), but even before the vaccine (08/28/20). She then followed up with herPCP 09/17/20. During this time, ??Pain continued to escalate, to the point that she could not roll over in bed, dress herself or comb her hair.??Her second dose was 10/12/20. Following her second Moderna vaccine, had fevers, fell down the stairs. She developed worsening pain, she was also experiencing significant fatigue. She was managing her pain with ibuprofen. At the time of the visit, she reported lo calized pain over shoulders, upper arms, neck, periscapular area, hip girdle, thighs and knees. Other areas of pain included MCPs. Morning pain and stiffness lasted about 2 to 4 hours. Exam was relevant for pain with active abduction beyond 90 degrees bilaterally. Impression was PMR, additional testing was pursued as well and no other rheumatologic process identified. Started prednisone at 20 mg daily. She was last seen in clinic 03/23/21 [...] 1 month until down to 0 mg. TODAY: After she decreased the prednisone to 12.5 mg daily she had symptoms return. Her PCP increased prednisone to 13.5 mg daily? and tapered by 2.5 mg every 2 weeks. She is currently at 5 mg daily and feelsworse, but not as in much pain as when she was initially diagnosed. She does not feel as though there is a difference between 12. 5 and 5 mg. Has been on 5 mg daily for 3 weeks. When asked about the mornings, she reports every day is different. However, she does reports that inthe mornings she is stiffer than In PM, but it is rather mild and would estimate it as 20 minutes. Denies pain over shoulders or hips in AM. She has stiffness over hips or knees. She walks about 3 miles daily, she notices knee pain at times. Pain migrates, sometimes over her knees, sometimes hips. She is taking ibuprofen 400 mg twice daily. Sometimes 800 mg daily. Reports hemoglobin a1c is improved. Reports her inflammatory markers are improved ( don't have records). Reports sed rate is 11. Had her blood work 06/2021 at [facility] Had her DXA scan at [facility] (12/05/2020) RAPID3 Summary Functional Status: Pain Tolerance: Global Estimate: Score: Interpretation: RAPID3 SCORES AND INTERPRETATION 03/23/2021 Functional Status 0 Pain Tolerance 1 Global Estimate 2 RAPID3 3 Interpretation Near Remission ALLERGIES: Patient has no known allergies. Past Medical History: Diagnosis Date ??? Essential hypertension ??? PMR (polymyalgia rheumatica) ([facility]) ([facility]) ??? Vitiligo Past Surgical History: Procedure Laterality [...] on file Social Connections: Not on file REVIEW OF SYSTEMS: 10 organ review of system was negative except as in HPI PHYSICAL EXAMINATION: No physical exam performed LABS Component Latest Ref Rng & Units 11/18/2020 02/25/2021 [place] Interpretation Negative Positive (A) [place] Titer Pattern 1:160 Homogeneous Lyme AB Negative CCP Antibodies <5.0 U/mL <2.5 Rheumatoid Factor <12.0 IU/mL <8.6 C4 Complement 13 - 39 mg/dL 36 C3 Complement 81 - 157 mg/dL 151 Anti DNA (DS) <30.0 IU/mL 16.4 Sm (Piedra) Antibody <20.0 Units 2.7 SPRING COILER Antibody <20.0 Units 4.2 SSA Antibody <20.0 Units 3.8 SSB Antibody <20.0 Units 1.1 Sed. Rate Westergren, External Component Latest Ref Rng & Units 10/28/2020 Lyme AB Negative Negative IMAGING: DXA scan 11/2020: Diagnosis / Assessment: Recommendations/Evaluation: PMR It is not clear to me that she has disease activity while on prednisone 5 mg daily. Visit limited by the lack of physical exam. She initially reported morning stiffness for 2 to 4 hours back in 02/2021, and now reports < 30 min of morning stiffness. The pain she experiences can be with walking, not necessarily in AM. Inflammatory marker (sed rate) normal. All of which does not support josh disease activity. Not enough evidence to support increasing prednisone at this time. Will have her remain on prednisone 5 mg daily until I see her in clinic. Lastly, since her PCP had to increased prednisone in the past due to recurring symptoms as she tapered, suspect she may ultimately need methotrexate. Briefly discussed this option today. She would liketo reassess things when I see her next. After next visit we can decide if there is a true jennie for it. Bone health Osteopenia Retrieved DXA scan post visit. When I take into account corticosteroids as I calculate FRAX store, her risk of major and hip fracture is 13 and 1.8% respectively and therefore she meets criteria for bisphosphonate therapy as the ACRguidelines on steroid induced osteoporosis. Will discuss with her at follow up. Plan: As outlined above I spent a total of 21 minutes on the date of this encounter meeting with the patient and reviewing documentation/coordinating care as described in the above note. No procedures were performed at the time of the visit. Milagros Evans MD documented in this encounter Plan of Treatment Upcoming Encounters Date Type Specialty Care Team Description 01/25/2022 Office Visit Rheumatology Milagros Evans MD [address] [place] [address], [facility], [facility] [address] [place], [place] [phone] (Wo rk) documented as of this encounter Visit Diagnoses Diagnosis PMR (polymyalgia rheumatica) ([facility]) ( [facility]) - Primary Polymyalgia rheumatica documented in this encounter Discontinued Medications Medication Sig Discontinue Reason Start Date End Date hydroCHLOROthiazide every 24 hours. 08/12 (HYDRODIURIL) 25 mg tablet documented as of this encounter Care Teams Certified Rehabilitation Counselor Relationship Specialty Start Date End Date Juaquin Iniguez MD PCP - General 02/23/[address] [place] [address] [place] [address] documented as of this encounter
--- OUTSIDE RECORDS SUMMARY | 2021-12-20 10:53 | XMS_ITS | Encounter Summary ---
:1955 Author Organization [facility] Address [address] [place] [address] Care Team Providers Name Role Phone Juaquin Iniguez MD Primary Care Provider Encounter Details Date Type Department Care Team Description 08/12/2021 Abstract [facility] Isaac Evans MD Rheumatology & Immunology - [address] [place] [phone] [place] [phone] (Wo rk) Social History Tobacco Use Types [...] Office Visit Rheumatology Milagros Evans MD [address] [phone] (Wo rk) documented as of this encounter Procedures Procedure Name Priority Date/Time Associated Diagnosis Comme nts SED RATE Routine 07/06/2021 Results for thi s procedure are i n the results section . COMPLETE BLOOD COUNT AND Routine 07/06/2021 Res ults for this DIFFERENTIAL procedure are i n the results section . documented in this encounter Results SED RATE (07/06/2021) Pathologist Sig nature Sed. Rate Westergren, 11 [facility] POINT OF CARE External Specimen Blood - Venous blood (substance) Performing Organization Address City/[facility] Phon e Number [facility] POINT OF CARE COMPLETE BLOOD COUNT AND DIFFERENTIAL (07/06/2021) Pathologist Sig nature WBC, External 10.58 [facility] POINT OF CARE RBC, External 5.49Comment: [facility] POINT OF CARE high Hemoglobin, External 16.2Comment: [facility] POINT OF CARE high HCT, External 51.0Comment: [facility] POINT OF CARE high MCV, External 92.9 [facility] POINT OF CARE MCH, External 29.5 [facility] POINT OF CARE MCHC, External 31.8Comment: [facility] POINT OF CARE low PLT, External 298 [facility] POINT OF CARE RDW-CV, External 12.5 [facility] POINT OF CARE Neutrophils, 83.1 [facility] POINT OF CARE External Lymphocytes, 11.1 [facility] POINT OF CARE External Monocytes, External 4.3 [facility] POINT OF CARE Eosinophils, 0.5 [facility] POINT OF CARE External Basophils, External 0.5 [facility] POINT OF CARE ABS Neutrophils, 8.80Comment: [facility] POINT OF CARE External high ABS Lymphs, External 1.17Comment: [facility] POINT OF CARE low ABS Monocytes, 0.46 [facility] POINT OF CARE External ABS Eosinophils, 0.05 [facility] POINT OF CARE External ABS Basophils, 0.05 [facility] POINT OF CARE External Specimen Blood - Venous blood (substance) Performing Organization Address City/[facility] Phon e Number [facility] POINT OF CARE documented in this encounter Visit Diagnoses Not on filedocumented in this encounter Care Teams Diver Tender Relationship Specialty Start Date End Date Juaquin Iniguez MD PCP - General 02/23/21 [address] [place] [address] documented as of this encounter
--- OUTSIDE RECORDS SUMMARY | 2021-12-20 10:53 | XMS_ITS | Encounter Summary ---
:1955 Author Organization [facility] Address [address] [place] [address] Care Team Providers Name Role Phone Juaquin Iniguez MD Primary Care Provider Reason for Visit Reason Comments Follow-up Encounter Details Date Type Department Care Team Description 03/23/2021 Office Visit [facility] Milagros Evans PMR ( lymyalgia Rheumatology & MD Amisha rheumatica) Immunology - Main [address] [place] [address] ([facility] ) ([facility]) [facility] (Primary Dx) [address] [place], [place] [phone] [place] [address], [place] [address] (Wo rk) Social History Tobacco Use Types Packs/Day Years Used Date Never Smoker Smokeless Tobacco: Never Used Sex Assigned at Date Recorded Not on file documented as of this encounter Last Filed Vital Signs Vital Sign Reading Time Taken Comments Blood Pressure 132/82 03/23/2021 1237 EDT 144/84 Pulse - - Temperature - - Respiratory Rate - - Oxygen Saturation - - Inhaled Oxygen Concentration - - Weight 54 kg (119 lb) 03/23/2021 1237 EDT Height - - Body Mass Index 21.08 02/25/2021 1448 EDT documented in this encounter Functional Status Functional Status Response Date of Assessment Because of a physical, mental, or emotional condition, No 03/23/2021 does this person have difficulty doing errands alone such as visiting a doctor's office or shopping? Cognitive Status Response Date of Assessment Because of a physical, mental, or emotional condition, No 02/25/2021 does this person have serious difficulty concentrating, remembering, or making decisions? documented as of this encounter Patient Instructions Patient InstructionsNeMilagros chirinos MD - 03/23/2021 12:30 EDT Continue to taper prednisone by 2.5 mg every 2 weeks until down to 10 mg daily. Later by 1 mg every 2 weeks until down to 5 mg daily and later by 1 mg every 1 month until 0. Continue calcium and vit D + vitamin D 2000 units daily. I will review your bone density test. Follow up with primary care regarding prediabetes. Follow up in 08/2021. Milagros Evans MD documented in this encounter Ordered Prescriptions Prescription Sig Dispensed Refills Start Date End Date predniSONE (DELTASONE) 1 Take 4 tablets 360 Tablet 1 021 09/14/2021 mg tablet daily predniSONE (DELTASONE) 5 20 mg daily for 2 120 Tablet 2 11/202009/14/2021 mg tablet week, then taper by 2.5 mg every 2 weeks until down to 10 mg daily or as directed. documented in this encounter Progress Notes Milagros Evans MD - 03/23/2021 1230 EDT [facility] Department of Rheumatology Follow Up Visit PCP Juaquin Iniguez 03/23/2021 History of Present Illness: Estephania Rice is a 65 y.o. female with past medical history of vitiligo, hypertension, was referred to clinic due to 5 months of diffuse myalgia and arthralgia (mostly proximal), morning stiffnessand fatigue. Initially assessed 02/25/21. During the our initial visit, she reported that two days after her first dose of COVID-19 Moderna vaccine (09/14/20) she noticed traveling pain over [...] worsening pain, she was also experiencing significant fatigue.She was managing her pain with ibuprofen. At [...] identified. Started prednisone at 20 mg daily. TODAY: Denies joint pain or swelling. Down to prednisone 17.5 mg now. Had a DXA scan 09/2020 in [place]. Review of Systems: I have reviewed the systems reviewed by the nurse Past Medical History: Diagnosis Date ??? Essential hypertension ??? PMR (polymyalgia rheumatica) ([facility]) ([facility]) ??? Vitiligo Past Surgical History: Procedure [...] and Family: Not on file ??? Attends Baptism Services: Not on file ??? Active Member [...] needed for Pain. (Patientnot taking: Reported on 03/23/2021) ??? predniSONE (DELTASONE) 5 mg tablet 20 mg daily for 2 week, then taper by 2.5 mg every 2 weeks until down to 10 mg daily or as directed. (Patient taking differently: Take 17.5 mg by mouth daily. 20 mg daily for 2 week, then taper by 2.5 mg every 2 weeks until down to 10 mg daily or as directed.) Physical exam: BP 132/82 (BP Cuff Location: Left arm, BP Patient Position: Sitting, BP Cuff Sizes: Adult, regular) Comment: 144/84 Wt 54 kg (119 lb) LMP (LMP Unknown) BMI 21.08 kg/m?? HEENT: moist oral mucosa, no ulcers [...] testing: Component Latest Ref Rng & Units 02/25/2021 [...] 0.06 K/cmm 0.03 Type of Diff: Auto Sodium 136 - 145 mmol/L 141 Potassium [...] 9.6 [place] Interpretation Negative [place] Titer Pattern CCP Antibodies <5.0 U/mL Rheumatoid Factor <12.0 IU/mL C4 Complement 13 - 39 mg/dL 36 C3 Complement 81 - 157 mg/dL 151 Anti DNA (DS) <30.0 IU/mL 16.4 Sm ([place]iedra) Antibody <20.0 Units 2.7 IMMERSION METAL CLEANER Antibody <20.0 Units 4.2 SSA Antibody <20.0 Units 3.8 SSB Antibody <20.0 Units 1.1 25OH Vitamin D Tot 30.0 - 100.0 ng/mL 24.7 (L) Component Latest Ref Rng & Units 11/18/2020 CCP Antibodies <5.0 U/mL <2.5 Rheumatoid Factor <12.0 IU/mL <8.6 Sed. Rate Westergren 0 - 30 mm/hr Imaging: None ordered today RAPID3 SCORES AND INTERPRETATION 03/23/2021 Functional Status 0 Pain Tolerance 1 Global Estimate 2 RAPID3 3 Interpretation Near Remission Problem List: Patient Active Problem List Diagnosis ??? Vitiligo ??? Essential hypertension ??? PMR (polymyalgia rheumatica) ([facility]) ([facility]) Assessment Plan: PMR Doing quite well To continue steroid taper Consider methotrexate if symptoms recur as we taper steroids. Bone health. Pending DXA scan review Recommendations made regarding calcium and vit D (see patient's instructions) Prediabetes As per PCP Plan: As outlined in patient's instructions Patient Instructions Continue to taper prednisone by 2.5 mg every 2 weeks until down to 10 mg daily. Later by 1 mg every 2 weeks until down to 5 mg daily and later by 1 mg every 1 month until 0. Continue calcium and vit D + vitamin D 2000 units daily. I will review your bone density test. Follow up with primary care regarding prediabetes. Follow up in 08/2021. Milagros Evans MD I spent a total of 30 minutes on the date of this encounter meeting with the patient and reviewing documentation/coordinating care as described in the above note. No procedures were performed at the time of the visit. Milagros Evans MD Department of Rheumatology Attending Physician Pager: [phone] documented in this encounter Plan of Treatment Upcoming Encounters Date Type Specialty Care Team Description 01/25/2022 Office Visit Rheumatology Milagros Evans MD [address] [facility], [facility], [facility] [address] [place], [place] [phone] (Wo rk) documented as of this encounter Results SED. RATE:WESTERGREN (03/23/2021 13:46 EDT) Pathologist Sig nature Sed Rate 1 0 - 30 mm/hr [facility] Specimen Blood - Venous blood (substance) Performing Organization Address City/State/ZIP Code Phon e Number [facility] [address] [place] [address] SERVICES C REACTIVE PROTEIN (03/23/2021 13:46 EDT) Pathologist Sig nature C-Reactive Protein <7.0 <10.0 mg/L [facility] Specimen Blood - Venous blood (substance) Performing Organization Address City/[facility]/ZIP Code Phon e Number [facility] [address] [place] [address] SERVICES documented in this encounter Visit Diagnoses Diagnosis PMR (polymyalgia rheumatica) ([facility]) ( [facility]) - Primary Polymyalgia rheumatica documented in this encounter Discontinued Medications Medication Sig Discontinue Reason Start Date End Date predniSONE (DELTASONE) 5 20 mg daily for 2 Reorder 02/25/2021 03/23/2021 mg tablet week, then taper by 2.5 mg every 2 weeks until down to 10 mg daily or as directed. documented as of this encounter Care Teams [employer] Officer Relationship Specialty Start Date End Date Juaquin Iniguez MD PCP - General 02/23/21 [address] [place] [address] documented as of this encounter
--- OUTSIDE RECORDS SUMMARY | 2021-12-20 10:53 | XMS_ITS | Encounter Summary ---
:[address] [facility] Address [address] [place] [address] Care Team Providers Name Role Phone Unknown, Provider Primary Care Provider Reason for Visit Reason Onset Date Comments Appointment Related 01/31/2021 Results 01/31/2021 Encounter Details Date Type Department Care Team Description 01/31/2021 Telephone [facility] Milagros Evans Appoint ment Related; Rheumatology & MD Amisha Results Immunology - Main [address] [place] [address] John, [place] [phone] (Wo rk) Social History Tobacco Use Types Packs/Day Years Used Date Never Assessed Sex Assigned at Date Recorded Not on file documented as of this encounter Miscellaneous Notes Telephone Encounter - Samantha Rondon - 01/31/2021 1038 EDT Patient called to ask that Dr. Evans review the lab results that were sent with original referral,in her Scans, for her 02/25 appointment. documented in this encounter Plan of Treatment Upcoming Encounters Date Type Specialty Care Team Description 01/25/2022 Office Visit Rheumatology Milagros Evans MD [address] [facility], [facility] [address], [address] [place], [place] [address] (Wo rk) documented as of this encounter Visit Diagnoses Not on filedocumented in this encounter Care Teams Sales Representative Uniforms Relationship Specialty Start Date End Date Unknown, Provider, PCP - General 09/02/15 02/22/21 documented as of this encounter
--- OUTSIDE RECORDS SUMMARY | 2021-12-20 10:53 | XMS_ITS | Encounter Summary ---
:1955 Author Organization [facility] Address [address] [place] [address] Care Team Providers Name Role Phone Unknown, Provider Primary Care Provider Encounter Details Date Type Department Care Team Description 01/22/2017 Results Only [facility]- Gissell Dior [phone] MD Nilson [address] [facility] [place], [place] [address] (Wo rk) Social History Tobacco Use Types Packs/Day Years Used Date Never Assessed Sex Assigned at Date Recorded Not on file documented as of this encounter Plan of Treatment Upcoming Encounters Date Type Specialty Care Team Description 01/25/2022 Office Visit Rheumatology Milagros Evans MD [address] [facility], [facility], [address] [place], [place] [phone] (Wo rk) documented as of this encounter Procedures Procedure Name Priority Date/Time Associated Diagnosis Comme nts PAP TEST- RESULT Routine 01/22/2017 0:00 EDT Resu lts for this ONLY procedure are i n the results section. documented in this encounter Results PAP TEST- RESULT ONLY (01/22/2017 0:00 EDT) Pathology Report: CYTOPATHOLOGY REPORT [facility] Reports generated via electronic interface contain celeste ginal data; SERVICES however they are lacking the format of the original re port. Caution should be taken when reading/interpreting unfo rmatted reports. Name: ? MIKO, KEYANNA ? Accession #: ? [id number] ? : ? 1955 (Age: [age]) ??F ?Collect Date: ? 2016 ? Location: ? [facility] ? Receive Date: ? Provider: GISSELL MONROE MD Copy to: ? Final Report SPECIMEN ADEQUACY ? Satisfactory for Evaluation - assessment of transformation zone component not appl icable ( e.g. atrophy, vaginal sample, hysterectomy) - scant squamous epithelial component - obscuring contamination, possibly lubricant GENERAL CATEGORIZATION ? Negative for Intraepithelial Lesion or Malignan cy ?? Last Menstrual Period: 2003 Hormonal/Contraceptive status: None Other: Previous NIL Pap(s): 10/22 07/29 Additional clinical information: pap insuffient 08/31 Specimen/Source: ??Pap Test, Cervix, ThinPrep Imaging System with manual evaluation Document reviewed and electronically signed by: ? Sydnee Chu, CT(ASCP)(IAC) ? Report ??Date: 01/31/2017 10:26 HPV with Pap Test ? Date Ordered: ? 01/31/2017 ? Status: ?? Signed Out ?Date Complete: ? 02/01/2017 ? By: ??Sy stem Interface ? Date Reported: ? 02/01/2017 ? Interpretation RESULT: Negative for HPV. No E6 or E7 mRNA is detected from HPV types 16,18,31,3 3,35, 39,45,51,52,56,58,59,66, and 68 by entry level paralegal media julito amplification. Comments Document reviewed and electronically signed by: ? System Interface ? Report date: 02/01/2017 By the signature above, the attending physician certif ies that he/she has personally conducted a gross and/or microscopic examin ation of the described specimens and rendered or confirmed the above diagnosi s. End of Report Specimen Performing Organization Address City/State/ZIP Code Phon e Number [facility] [address] [place] [address] SERVICES documented in this encounter Visit Diagnoses Not on filedocumented in this encounter Care Teams Senior Systems Developer Relationship Specialty Start Date End Date Unknown, Provider, PCP - General 09/02/15 02/22/21 documented as of this encounter
--- OUTSIDE RECORDS SUMMARY | 2021-12-20 10:53 | XMS_ITS | Encounter Summary ---
:1955 Author Organization [facility] Address [address] [place] [address] Care Team Providers Name Role Phone Juaquin Iniguez MD Primary Care Provider Encounter Details Date Type Department Care Team Description 03/23/2021 Phlebotomy Only [facility] ED Center 2 Supply Chain Analyst, Acc PMR (p olymyalgia Phlebotomy Phlebotomy rheumatica) [address] [facility] ([facility]) ([facility]) [place], [place] [id number] Social History Tobacco Use Types Packs/Day Years [...] Office Visit Rheumatology Milagros Evans MD [address] [facility], [facility], [address] [place], [place] [phone] (Wo rk) documented as of this encounter Procedures Procedure Name Priority Date/Time Associated Diagnosis Comme nts SED RATE Routine 03/23/2021 13:46 PMR (polymyalgia Results for this EDT rheumatica) procedure are i n ([facility]) ([facility]) the results section. C REACTIVE PROTEIN Routine 03/23/2021 13:46 PMR (polymyalgia R esults for this EDT rheumatica) procedure are i n ([facility]) ([facility]) the results section. documented in this encounter Results SED. RATE:WESTERGREN (03/23/2021 13:46 EDT) Pathologist Sig nature Sed Rate 1 0 - 30 mm/hr [facility] Specimen Blood - Venous blood (substance) Performing Organization Address City/[facility]/ZIP [facility] Phon e Number [facility] [address] [place] [address] SERVICES C REACTIVE PROTEIN (03/23/2021 13:46 EDT) Pathologist Sig nature C-Reactive Protein <7.0 <10.0 mg/L [facility] Specimen Blood - Venous blood (substance) Performing Organization Address [facility] Phon e Number [facility] [address] [place] [address] SERVICES documented in this encounter Visit Diagnoses Diagnosis PMR (polymyalgia rheumatica) ([facility]) ( [facility]) Polymyalgia rheumatica documented in this encounter Care Teams Mass Spectroscopist Relationship Specialty Start Date End Date Juaquin Iniguez MD PCP - General 02/23/21 [address] [place] [address] documented as of this encounter
--- OUTSIDE RECORDS SUMMARY | 2021-12-20 10:54 | XMS_ITS | Clinical Summary ---
:1955 Author Organization [facility] [place] [address] Care Team Providers Name Role Phone Juaquin Iniguez MD Primary Care Provider Allergies No known active allergies Medications No known medications Social History Tobacco Use Types Packs/Day Years Used Date Never Assessed Sex Assigned at Date Recorded Not on file Plan of Treatment Health Maintenance Due Date Last Done Comments Covid-19 Vaccine (#1) 1959 Hepatitis C Screening 1972 Tdap adult 1973 Tetanus vaccine 1973 Breast Cancer Share Decision Needed 1994 Colonoscopy 1999 Breast Cancer screening 2004 Zoster vaccine (1 of 2) 2004 Advance Directive 2009 Bone Density Scan 2019 Pneumoccocal Vaccine: 65+ (1 - PCV) 2019 Influenza (Flu) vaccine (1 of 1 - Influenza standard 02/16/2021 series) Care Teams Radiology Technician Relationship Specialty Start Date End Date Juaquin Iniguez MD PCP - General 05/10/10 [address] [place] [address]
--- OUTSIDE RECORDS SUMMARY | 2021-12-20 10:54 | XMS_ITS | Encounter Summary ---
:1955 Author Organization [facility] Address [address] [place] [address] Care Team Providers Name Role Phone Unavailable Primary Care Provider Unavailable Encounter Details Date Type Department Care Team Description 09/14/2000 Results Only [facility] - Gabriel Serra MD conversion [address] [place], [place] [phone] Social History Tobacco Use Types Packs/Day Years Used Date Never Assessed Sex Assigned at Date Recorded Not on file documented as of this encounter Plan of Treatment Upcoming Encounters Date Type Specialty Care Team Description 01/25/2022 Office Visit Rheumatology Milagros Evans MD [address] [facility], [facility], [address] [place], [place] [address] (Wo rk) documented as of this encounter Procedures Procedure Name Priority Date/Time Associated Diagnosis Comme [facility] CYTOPATHOLOGY Routine 09/14/2000 0:00 EST Results for this procedure are i n the results section . documented in this encounter Results CYTOPATHOLOGY (09/14/2000 0:00 EST) Pathology Report: CYTOPATHOLOGY REPORT [facility] Reports generated via electronic interface contain celeste ginal data; however they are lacking the format of the original re port. Caution should be taken when reading/interpreting unfo rmatted reports. Name: ? KEYANNA RICE ? Accession #: ? [id number] : ? 1955 (Age: 45) ??F ?Collect Date: ? 08/18 Location: ? [facility] ? Receive Date : ? 09/17/2000 Provider: ?GABRIEL DIOP MD Copy to: ? Specimen/Source: ?ThinPrep Pap Test, Cervix/ Endocervix Last Menstrual Period: ? 08/31/00 ? SPECIMEN ADEQUACY ? Satisfactory for evaluation. GENERAL CATEGORIZATION ? Within Normal Limits ? Document reviewed and electronically signed by: ? Beatrice Hayward, ??CT(ASCP) ? Report Date: ??09/18/2000 09:42 End of Report Specimen Performing Organization Address City/State/ZIP Code Phon e Number [facility] [address] [place] [address] SERVICES [facility] [address] [place] [address] documented in this encounter Visit Diagnoses Not on filedocumented in this encounter
--- OUTSIDE RECORDS SUMMARY | 2021-12-20 10:54 | XMS_ITS | Encounter Summary ---
:1955 Author Organization [facility] [place] [address] Care Team Providers Name Role Phone Juaquin Iniguez MD Primary Care Provider Encounter Details Date Type Department Care Team Description 06/25/2014 Office Visit [facility]ology at [place] Vitilig o; Manuelito HAWK POD (perioral dermatitis); [address] Irritant contact dermatitis [facility] [place], [place] [phone] Social History Tobacco Use Types Packs/Day Years Used Date Never Assessed Sex Assigned at Date Recorded Not on file documented as of this encounter Progress Notes [facility] MD - 06/25/2014 9:14 AM EST Problems: 1. New dermatitis, chest and back. 2. History of vitiligo for 10 years. 3. History of recurrent episodes of perioral dermatitis. Estephania follows up after I last saw her in 2004. She states that she starting using a new soap this December 2013, and then after she returned from a trip to [place] in March 2014, she had an itchy rash on the chest and back. Her vitiligo has been steadily worsening over the last 10 years. 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 On Sunday, she was given clindamycin gel to use for this, and this has helped. She called a [place] physician friend of hers in [place] who had recommended a baking soda poultice for the rash, and that seemed to help. A letter of introduction from Dr. Iniguez points out that the patient has no history of weight loss, no thyroid disease with a normal TSH in the last year, and no history of hepatitis. She has not noted adenopathy. Physical examination reveals a pleasant, 58-year-old woman, originally from [place], who has today a few excoriated, erythematous papules on the upper chest. She has patches of vitiligo that are present symmetrically on the chest, back, hands, and legs. She has some fading erythema and a few papules remaining in a perioral dermatitis distribution on her face. Assessment and Plan: 1. Perioral dermatitis. a. I agree with clindamycin gel, applying b.i.d. until rash clears. b. May use Fiorella cream as a good emollient. c. Discussed the relationship between stress and perioral dermatitis. I encouraged her not to use hydrocortisone cream or any cortisone creams on her face for this rash. 2. Irritant dermatitis, chest and back. a. The patient was given clobetasol cream by Dr. Garcia to use for this, and I recommended that would be a reasonable thing to use for the short term. It seems to be helping. b. The patient points out that she also has a red rash on the buttock area, and the Temovate was helpful for that. c. I recommended that if this flares again, I would like to see her back for a punch biopsy; but today there are no primary dermatologic findings that would be histologically helpful to biopsy. d. I do not suspect any systemic trigger for her dermatitis. e. I suspect a fragrance in her soap may be to blame for her dermatitis. I recommended she use Dove or Ivory fragrance free. 3. Vitiligo. a. I would not recommend aggressive intervention for this. We had tried Temovate cream and Elidel cream for this in the past with only partial benefit in 2004. At this point, there are really no effective interventions that are available for her. b. Return to clinic p.r.n./p.r.n. for flares of rash. COPY: Juaquin Iniguez M.D. Note: Half an hour was spent with the patient with more than half spent in counseling. documented in this encounter Plan of Treatment Not on filedocumented as of this encounter Visit Diagnoses Diagnosis Vitiligo POD (perioral dermatitis) Rosacea Irritant contact dermatitis Contact dermatitis and other eczema, due to unspecified cause documented in this encounter Care Teams Lifestyle Consultant Relationship Specialty Start Date End Date Juaquin Iniguez MD PCP - General 05/10/[address] [place] [address] documented as of this encounter
--- OUTSIDE RECORDS SUMMARY | 2021-12-20 10:54 | XMS_ITS | Encounter Summary ---
:1955 Author Organization [facility] Address [address] [place] [address] Care Team Providers Name Role Phone Unavailable Primary Care Provider Unavailable Encounter Details Date Type Department Care Team Description 09/30/2004 Results Only [facility] - Gabriel Serra MD conversion [address] [place], [place] [phone] Social History Tobacco Use Types Packs/Day Years Used Date Never Assessed Sex Assigned at Date Recorded Not on file documented as of this encounter Plan of Treatment Upcoming Encounters Date Type Specialty Care Team Description 01/25/2022 Office Visit Rheumatology Milagros Evans MD [address] [facility], [facility], Level [address] [place], [place] [address] (Wo rk) documented as of this encounter Procedures Procedure Name Priority Date/Time Associated Diagnosis Comme [facility] CYTOPATHOLOGY Routine 09/30/2004 0:00 EDT Results for this procedure are i n the results section . documented in this encounter Results CYTOPATHOLOGY (09/30/2004 0:00 EDT) Pathology Report: CYTOPATHOLOGY REPORT [facility] Reports generated via electronic interface contain celeste ginal data; however they are lacking the format of the original re port. Caution should be taken when reading/interpreting unfo rmatted reports. Name: ? KEYANNA RICE ? Accession #: ? [id number] : ? 1955 (Age: 49) ??F ?Collect Date: ? 09/16 Location: ? [facility] ? Receive Date : ? 10/03/2004 Provider: ?GABRIEL DIOP MD Copy to: ? Specimen/Source: ?ThinPrep Pap Test, Cervix/ Endocervix Last Menstrual Period: ? 04/21 Other: ? HPVA - HPV testing requested if ASC-US on the current ThinPrep Pap test. ? SPECIMEN ADEQUACY ? Satisfactory for Evaluation - transformation zone component present GENERAL CATEGORIZATION ? Negative for Intraepithelial Lesion or Malignan cy ? Document reviewed and electronically signed by: ? SUMAYA Simental(ASCP) ? Report Date: ??10/10/2004 11:32 End of Report Specimen Performing Organization Address City/State/ZIP Code Phon e Number [facility] [address] [place] [address] SERVICES [facility] [address] [place] [address] documented in this encounter Visit Diagnoses Not on filedocumented in this encounter
--- OUTSIDE RECORDS SUMMARY | 2021-12-20 10:54 | XMS_ITS | Encounter Summary ---
:1955 Author Organization [facility] Address [address] [place] [address] Care Team Providers Name Role Phone Unavailable Primary Care Provider Unavailable Encounter Details Date Type Department Care Team Description 09/16/2001 Results Only [facility] - Gabirel Serra MD conversion [address] [place], [place] [phone] Social History Tobacco Use Types Packs/Day Years Used Date Never Assessed Sex Assigned at Date Recorded Not on file documented as of this encounter Plan of Treatment Upcoming Encounters Date Type Specialty Care Team Description 01/25/2022 Office Visit Rheumatology Milagros Evans MD [address] [facility], [facility], Level [address] [place], [place] [address] (Wo rk) documented as of this encounter Procedures Procedure Name Priority Date/Time Associated Diagnosis Comme [facility] CYTOPATHOLOGY Routine 09/16/2001 0:00 EST Results for this procedure are i n the results section . documented in this encounter Results CYTOPATHOLOGY (09/16/2001 0:00 EST) Pathology Report: CYTOPATHOLOGY REPORT [facility] Reports generated via electronic interface contain celeste ginal data; however they are lacking the format of the original re port. Caution should be taken when reading/interpreting unfo rmatted reports. Name: ? KEYANNA RCIE ? Accession #: ? [id number] : ? 1955 (Age: 46) ??F ?Collect Date: ? 04/0 06/2001 Location: ? [facility] ? Receive Date : ? 09/18/2001 Provider: ?GABRIEL DIOP MD Copy to: ? Specimen/Source: ?ThinPrep Pap Test, Cervix/ Endocervix Last Menstrual Period: ? 3/?/02 Other: ? Client ID#: [id number] ? SPECIMEN ADEQUACY ? Satisfactory for Evaluation - transformation zone component present GENERAL CATEGORIZATION ? Negative for Intraepithelial Lesion or Malignan cy ? Document reviewed and electronically signed by: ? SUMAYA Live(ASCP) ? Report Date: ??09/23/2001 13:36 End of Report Specimen Performing Organization Address City/State/ZIP Code Phon e Number [facility] [address] [place] [address] SERVICES [facility] [address] [place] [address] documented in this encounter Visit Diagnoses Not on filedocumented in this encounter
--- OUTSIDE RECORDS SUMMARY | 2021-12-20 10:54 | XMS_ITS | Encounter Summary ---
:1955 Author Organization [facility] Address [address] [place] [address] Care Team Providers Name Role Phone Unavailable Primary Care Provider Unavailable Encounter Details Date Type Department Care Team Description 09/15/1999 Results Only [facility] - Gabriel Serra MD conversion [address] [place], [place] [address] Social History Tobacco Use Types Packs/Day Years Used Date Never Assessed Sex Assigned at Date Recorded Not on file documented as of this encounter Plan of Treatment Upcoming Encounters Date Type Specialty Care Team Description 01/25/2022 Office Visit Rheumatology Milagros Evans MD [address] [facility], [facility], Level [address] [place], [place] [phone] (Wo rk) documented as of this encounter Procedures Procedure Name Priority Date/Time Associated Diagnosis Comme [facility] CYTOPATHOLOGY Routine 09/15/1999 12:32 EST Result s for this procedure are i n the results section . documented in this encounter Results CYTOPATHOLOGY (09/15/1999 12:32 EST) Pathology Report: CYTOPATHOLOGY REPORT [facility] Reports generated via electronic interface contain celeste ginal data; however they are lacking the format of the original re port. Caution should be taken when reading/interpreting unfo rmatted reports. Name: ? KEYANNA RICE ? Accession #: ? [id number] : ? 1955 (Age: 44) ??F ?Collect Date: ? 08/18 Location: ?Receive Date: ? 09/15/1999 Provider: ?GABRIEL DIOP MD Copy to: ?GABRIEL DIOP MD ? Specimen/Source: ?Pap Smear (One Slide) Last Menstrual Period: ? GYNECOLOGIC ??CYTOPATHOLOG Y ??REPORT Name: MIKO,KEYANNA ? [facility] : 1955 ?? 44Y F ?Cl ient ID: [id number] SS#: ? Clinician: Misael DIOP MD Location: [facility] ??Copy to: ?? Specimen: ?Pap Smear (One Slide) ? Source: Cervix/Endocervix ?Collected: 09/13/99 ? Received: 09/15/1999 ?LMP: 09/03/99 ? Hormone Therapy: No ? : No ? Radiation Therapy: No ?? Post : No ?Chemotherapy: No ?IUD: Yes ?Prev Abnormal Pap: No ?? Clinical Hx: ?(Blank perkins indicate information not provided on requisition) SPECIMEN ADEQUACY: ? Satisfactory For Evaluation ?? GENERAL CATEGORIZATION: ? WITHIN NORMAL LIMITS ? Reviewed And Electronically Signed By: ? SUMAYA Milligan(ASCP) ? Report Date : ?? 09/21/1999 [employer] Archived Tests - Final Diagnosis Text Field: Clinical History : ? Document reviewed and electronically signed by: ? Conversion ? Report Date: ??09/21/1999 00:00 End of Report Specimen Performing Organization Address City/State/ZIP Code Phon e Number [facility] [address] [place] [address] SERVICES [facility] [address] [place] [address] documented in this encounter Visit Diagnoses Not on filedocumented in this encounter
--- OUTSIDE RECORDS SUMMARY | 2021-12-20 10:54 | XMS_ITS | Encounter Summary ---
:1955 Author Organization [facility] Address [address] [place] [address] Care Team Providers Name Role Phone Unavailable Primary Care Provider Unavailable Encounter Details Date Type Department Care Team Description 09/26/2002 Results Only [facility] - Gabriel Serra MD conversion [address], [place] [id number] Social History Tobacco Use Types Packs/Day Years Used Date Never Assessed Sex Assigned at Date Recorded Not on file documented as of this encounter Plan of Treatment Upcoming Encounters Date Type Specialty Care Team Description 01/25/2022 Office Visit Rheumatology Milagros Evans MD [address] [facility], [facility], [address] [place], [place] [address] (Wo rk) documented as of this encounter Procedures Procedure Name Priority Date/Time Associated Diagnosis Comme [facility] CYTOPATHOLOGY Routine 09/26/2002 0:00 EDT Results for this procedure are i n the results section . documented in this encounter Results CYTOPATHOLOGY (09/26/2002 0:00 EDT) Pathology Report: CYTOPATHOLOGY REPORT [facility] Reports generated via electronic interface contain celeste ginal data; however they are lacking the format of the original re port. Caution should be taken when reading/interpreting unfo rmatted reports. Name: ? KEYANNA RICE ? Accession #: ? [id number] : ? 1955 (Age: 47) ??F ?Collect Date: ? 09/16 Location: ? [facility] ? Receive Date : ? 09/29/2002 Provider: ?GABRIEL DIOP MD Copy to: ? Specimen/Source: ?ThinPrep Pap Test, Cervix/ Endocervix Last Menstrual Period: ? 09/17/02 Hormonal/Contraceptive Status: ? Yes Other: ? HPVA - HPV testing requested if ASC-US on the current ThinPrep Pap test. ? SPECIMEN ADEQUACY ? Satisfactory for Evaluation - transformation zone component present GENERAL CATEGORIZATION ? Negative for Intraepithelial Lesion or Malignan cy ? Document reviewed and electronically signed by: ? Zamzam Fraser, SCT(ASCP) ? Report Date: ??10/02/2002 09:11 End of Report Specimen Performing Organization Address City/State/ZIP Code Phon e Number [facility] [address] [place] [address] SERVICES [facility] [address] [place] [address] documented in this encounter Visit Diagnoses Not on filedocumented in this encounter
--- OUTSIDE RECORDS SUMMARY | 2021-12-20 10:54 | XMS_ITS | Encounter Summary ---
:1955 Author Organization [facility] Address [address] [place] [address] Care Team Providers Name Role Phone Unavailable Primary Care Provider Unavailable Encounter Details Date Type Department Care Team Description 10/23/2006 Results Only [facility] - Gabriel Serra MD conversion [address] [place] [id number] Social History Tobacco Use Types Packs/Day Years Used Date Never Assessed Sex Assigned at Date Recorded Not on file documented as of this encounter Plan of Treatment Upcoming Encounters Date Type Specialty Care Team Description 01/25/2022 Office Visit Rheumatology Milagros Evans MD 111 [facility], [facility], [address] [place], [place] [address] (Wo rk) documented as of this encounter Procedures Procedure Name Priority Date/Time Associated Comments Diagnosis HPV DETECTION, HIGH Routine 10/23/2006 10:20 Resu lts for this RISK TYPES EDT procedure are i n the results section. CYTOPATHOLOGY Routine 10/23/2006 0:00 Results for this EDT procedure are i n the results section. documented in this encounter Results HUMAN PAPILLOMA VIRUS DNA TEST (10/23/2006 10:20 EDT) Specimen Description Cervix, ThinPrep [facility] vial Result Negative for HPV [facility] types 16, 18, 31, 33, 35, 39, 45, 51, 52, 56, 58, 59, and 68. Report Status Final [facility] [id number] Specimen Performing Organization Address City/State/ZIP Code Phon e Number [facility] [address] [place] [address] SERVICES [facility] [address] [place] [address] CYTOPATHOLOGY (10/23/2006 0:00 EDT) Pathology Report: CYTOPATHOLOGY REPORT [facility] Reports generated via electronic interface contain celeste ginal data; however they are lacking the format of the original re port. Caution should be taken when reading/interpreting unfo rmatted reports. Name: ? KEYANNA RICE ? Accession #: ? [id number] : ? 1955 (Age: 51) ??F ?Collect Date: ? 0501/2007 Location: ? [facility] ? Receive Date : ? 10/25/2006 Provider: ?GABRIEL DIOP MD Copy to: ? Specimen/Source: ? ThinPrep Pap Test, Cervix/Endocervix, processed on WILEX ThinPrep Imaging System, with manual evaluation Last Menstrual Period: ? 04/18/04 Other: ? Additional clinical information: Previous paps wnl HPVDX - HPV testing requested regardless of diag nosis on current ThinPrep Pap test. ? SPECIMEN ADEQUACY ? Satisfactory for Evaluation - transformation zone component present - scant squamous epithelial component secondary to exc essive inflammation GENERAL CATEGORIZATION ? Negative for Intraepithelial Lesion or Malignan cy ? Document reviewed and electronically signed by: ? SUMAYA Jimenez(ASCP) ? Report Date: ??10/29/2006 10:07 End of Report Specimen Performing Organization Address City/State/ZIP Code Phon e Number [facility] [address] [place] [address] SERVICES [facility] [address] [place] [address] documented in this encounter Visit Diagnoses Not on filedocumented in this encounter
--- OUTSIDE RECORDS SUMMARY | 2021-12-20 10:54 | XMS_ITS | Encounter Summary ---
:1955 Author Organization [facility] Address [address] [place] [address] Care Team Providers Name Role Phone Unavailable Primary Care Provider Unavailable Encounter Details Date Type Department Care Team Description 09/28/2003 Results Only [facility] - Gabriel Serra MD conversion [address] [place], [place] [address] Social History Tobacco Use Types Packs/Day Years Used Date Never Assessed Sex Assigned at Date Recorded Not on file documented as of this encounter Plan of Treatment Upcoming Encounters Date Type Specialty Care Team Description 01/25/2022 Office Visit Rheumatology Milagros Evans MD [address] [facility], [facility], [address] [place], [place] [address] (Wo rk) documented as of this encounter Procedures Procedure Name Priority Date/Time Associated Diagnosis Comme [facility] CYTOPATHOLOGY Routine 09/28/2003 0:00 EDT Results for this procedure are i n the results section . documented in this encounter Results CYTOPATHOLOGY (09/28/2003 0:00 EDT) Pathology Report: CYTOPATHOLOGY REPORT [facility] Reports generated via electronic interface contain celeste ginal data; however they are lacking the format of the original re port. Caution should be taken when reading/interpreting unfo rmatted reports. Name: ? KEYANNA RICE ? Accession #: ? [id number] : ? 1955 (Age: 48) ??F ?Collect Date: ? 09/16 Location: ? [facility] ? Receive Date : ? 09/30/2003 Provider: ?GABRIEL DIOP MD Copy to: ? Specimen/Source: ?ThinPrep Pap Test, Cervix/ Endocervix Last Menstrual Period: ? 07/05/2003 Other: ? HPVA - HPV testing requested if ASC-US on the current ThinPrep Pap test. ? SPECIMEN ADEQUACY ? Satisfactory for Evaluation - transformation zone component present GENERAL CATEGORIZATION ? Negative for Intraepithelial Lesion or Malignan cy ? Document reviewed and electronically signed by: ? SUMAYA Jimenez(ASCP) ? Report Date: ??10/02/2003 14:43 End of Report Specimen Performing Organization Address City/State/ZIP Code Phon e Number [facility] [address] [place] [address] SERVICES [facility] [address] [place] [address] documented in this encounter Visit Diagnoses Not on filedocumented in this encounter
[2021-12-20 19:01] LABS: Abs Immature Grans 0.01 10^3/uL (0.0-0.06); Absolute Basophil Count 0.06 10^3/uL (0.0-0.2); Absolute Eosinophil Count 0.24 10^3/uL (0.0-0.7); Absolute Lymphocyte Count 1.85 10^3/uL (1.2-3.4); Absolute Monocyte Count 0.61 10^3/uL (0.1-0.8); Absolute Neutrophil Count 4.57 10^3/uL (1.2-6.7); Basophils % 0.8; Eosinophils % 3.3; HCT 46.5 % (36.0-46.0); HGB 15.2 g/dL (11.2-15.7); Immature Grans % 0.1; Lymphocytes % 25.2; MCH 31.2 pg (27.0-33.0); MCHC 32.7 % (32.0-36.0); MCV 96 fL (80-95); MPV 9.4 fL (8.0-11.0); Monocytes % 8.3; Neutrophils % 62.3; Platelet Count 272 10^3/uL (130-400); RBC 4.87 10^6/uL (3.93-5.22); RDW 14.7 % (11.7-14.6); RDW-SD 51.2 fL; WBC 7.34 10^3/uL (4.4-10.8)
[2021-12-20 19:15] LABS: ALT 32 U/L (14-59); AST 17 U/L (15-37); Albumin 3.6 g/dL (3.4-5.0); Alkaline Phosphatase 44 U/L (46-116); Bilirubin, Direct 0.1 mg/dL (0.0-0.2); Bilirubin, Total 0.3 mg/dL (0.2-1.0); Total Protein 6.3 g/dL (6.4-8.2)
== END 2021-12-20 10:51 | disposition home or self-care (01) ==
LOC: NCHCN 10:50
PROVIDERS: PCP Internal Medicine; Visit Provider Internal Medicine
DX: M35.3 Polymyalgia rheumatica (principal)
CPT/HCPCS: 80076; 85025

== ENCOUNTER 2022-02-21 19:59 | Outpatient (REF) | payer MEDICARE, BC, SELFPAY ==
[2022-02-21 20:16] LABS: Bilirubin Negative (Negative); Blood Negative (Negative); Clarity Clear (Clear); Glucose Negative (Negative); Ketones Negative (Negative); Leukocyte Esterase Negative (Negative); Nitrite Negative (Negative); Specific Gravity 1.025 (1.005-1.025); Urobilinogen 0.2 EU/dL (Up TO 0.2); pH 6.5 (5-8)
== END 2022-02-21 20:00 | disposition home or self-care (01) ==
LOC: NCHCN 19:59
PROVIDERS: PCP Internal Medicine; Visit Provider Nurse Practitioner Family
DX: R30.0 Dysuria (principal); N89.8 Other specified noninflammatory disorders of vagina
CPT/HCPCS: 81003; 87480; 87510; 87660

== ENCOUNTER 2022-02-27 15:56 | Outpatient (REF) | payer MEDICARE, BC, SELFPAY ==
[2022-02-27 20:26] LABS: Abs Immature Grans 0.01 10^3/uL (0.0-0.06); Absolute Basophil Count 0.05 10^3/uL (0.0-0.2); Absolute Eosinophil Count 0.11 10^3/uL (0.0-0.7); Absolute Monocyte Count 0.44 10^3/uL (0.1-0.8); Absolute Neutrophil Count 4.29 10^3/uL (1.2-6.7); Basophils % 0.8; Eosinophils % 1.7; HCT 44.9 % (36.0-46.0); HGB 14.9 g/dL (11.2-15.7); Immature Grans % 0.2; Lymphocytes % 24.6; MCH 31.5 pg (27.0-33.0); MCHC 33.2 % (32.0-36.0); MCV 95 fL (80-95); MPV 9.5 fL (8.0-11.0); Monocytes % 6.8; Neutrophils % 65.9; Platelet Count 265 10^3/uL (130-400); RBC 4.73 10^6/uL (3.93-5.22); RDW 13.1 % (11.7-14.6); RDW-SD 45.1 fL
[2022-02-27 20:58] LABS: ALT 26 U/L (14-59); AST 20 U/L (15-37); Albumin 3.6 g/dL (3.4-5.0); Alkaline Phosphatase 45 U/L (46-116); Bilirubin, Direct 0.1 mg/dL (0.0-0.2); Bilirubin, Total 0.5 mg/dL (0.2-1.0); Total Protein 6.7 g/dL (6.4-8.2)
== END 2022-02-27 15:57 | disposition home or self-care (01) ==
LOC: NCHCN 15:56
PROVIDERS: PCP Internal Medicine; Visit Provider Internal Medicine
DX: M35.3 Polymyalgia rheumatica (principal)
CPT/HCPCS: 80076; 85025

== ENCOUNTER 2022-04-11 08:17 | Outpatient (CLI) | payer MEDICARE, BC, SELFPAY ==
--- NOTE | 2022-04-11 08:15 | RT.EKG_ITS ---
APPROVED REPORT Exam: Resting ECG Reason for Exam: SVT Patient Location: O HR:85 bpm ECG Measurements Heart Rate 85 AXIS NH 168 P 52 QRSd 72 QRS 68 QT 366 T 43 QTc 436 Conclusion Sinus rhythm...normal P axis, V-rate 50- 99 Normal Electrocardiogram
== END 2022-04-11 08:18 | disposition home or self-care (01) ==
LOC: DI.CARD 08:18
PROVIDERS: PCP Internal Medicine; Visit Provider Internal Medicine Cardiovascular Disease
DX: R07.9 Chest pain, unspecified (principal); Z86.79 Personal history of other diseases of the circulatory system
CPT/HCPCS: 93010

== ENCOUNTER → 2022-04-11 13:50 | Outpatient (BNVA) | payer MEDICARE, BC, SELFPAY | PROVIDERS: PCP Internal Medicine; Referring Provider Internal Medicine; Visit Provider Internal Medicine Cardiovascular Disease | DX: R07.9 Chest pain, unspecified (principal); I10 Essential (primary) hypertension; Z86.79 Personal history of other diseases of the circulatory system | CPT/HCPCS: 93005; 99203 ==

== ENCOUNTER 2022-05-05 18:44 | Outpatient (REF) | payer MEDICARE, BC, SELFPAY ==
--- OUTSIDE RECORDS SUMMARY | 2022-05-05 18:46 | XMS_ITS | Continuity of Care Document ---
:1955 Author Organization [facility] Address [address] [place] [address] Care Team Providers Name Role Phone Juaquin Anand Primary Care Physician [phone] Encounter [facility] [id number] Date(s): 03/09/22 - 03/09/[address] [address] Discharge Disposition: Home or Self Care Attending Physician: Alex Buck MD Admitting Physician: Alex Buck MD Allergies, Adverse Reactions, Alerts Substance Reaction Severity Status amoxicillin Unknown Active amoxicillin Unknown Active sulfa drugs Unknown Active sulfa drugs Urticaria Unknown Active sulfa drugs Urticaria Unknown Active Assessment and Plan Diagnostic Tests PendingCA 125 [facility] 03/09/22 Medications folic acid 0 Refill(s) Start Date: 03/09/22 Status: Orderedleucovorin 5 mg oral tablet 15 mg = 3 tab, Oral, every 6 hr, # 120 tab, 0 Refill(s) Start Date: 03/09/22 Stop Date: 03/12/22 Status: Orderedmethotrexate 5 mg oral tablet 0 Refill(s) Start Date: 03/09/22 Status: Orderedmetoprolol succinate 25 mg oral capsule, extended release 0 Refill(s) Start Date: 03/09/22 Status: OrderedpredniSONE 0 Refill(s) Start Date: 03/09/22 Status: OrderedVitamin D3 1000 intl units oral tablet, chewable 50 mcg = 2 tab, Chewed, Daily Start Date: 03/07/22 Status: Ordered Problem List Condition Effective Dates Status Health Status Informant Anxiety disorder(Confirmed) 12/05/18 Active Bronchitis(Confirmed) 12/05/18 Active Disorder of bone(Confirmed) Active Disorder of urinary tract(Confirmed) 12/05/18 Active 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 Sex Female Patient Care team information PersonnelName: Juaquin Anand MD Address: Address: [address] [address]- [place]
--- OUTSIDE RECORDS SUMMARY | 2022-05-05 18:46 | XMS_ITS | Continuity of Care Document ---
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 TRAFFIC SUPERVISOR Admitting Physician: Ansley Lopez SCHOOL TRAFFIC SUPERVISOR Allergies, Adverse Reactions, Alerts Substance Reaction Severity Status amoxicillin Unknown Active amoxicillin Unknown Active sulfa drugs Unknown Active sulfa drugs Urticaria Unknown Active sulfa drugs Urticaria Unknown Active Assessment and Plan Future AppointmentsFuture Scheduled TestsRadiologyUS Pelvic Non OB Comp w/ Transvag 03/10/22 Medications folic acid 0 Refill(s) Start Date: [...] Date: 03/07/22 Status: Ordered Problem List Condition Confirmation Course Effective Dates Status Health I nformant Status Anxiety disorder Confirmed 12/05/18 Active Bronchitis Confirmed 12/05/18 Active Disorder of bone Confirmed Active Disorder of urinary Confirmed 12/05/18 Active tract Disorder of vocal cord Confirmed 12/05/18 Active Gastroesophageal Confirmed 08/23/21 Active reflux disease Genuine stress Confirmed Active incontinence Impacted cerumen Confirmed 12/05/18 Active Menopausal symptom Confirmed Active Paroxysmal Confirmed 08/23/21 Active supraventricular tachycardia Vasovagal syncope Confirmed 12/05/18 Active Vitiligo Confirmed 12/05/18 Active Procedures Procedure Date Related Diagnosis Body Site Status Due 01/21/17 Completed Appendectomy 1974 Completed 02/01/17 - Neg/Neg Next Pap Due 01/2022 Social History Social History Type Response Tobacco Never tobacco user Tobacco U se:. Sex Female Patient Care team information PersonnelName: Hira GUADARRAMAJuaquin MD Address: Address: [address] [address]- [place]
--- OUTSIDE RECORDS SUMMARY | 2022-05-05 18:46 | XMS_ITS | Encounter Summary ---
:1955 Author Organization [facility] [place] [address] Care Team Providers Name Role Phone Juaquin Iniguez MD Primary Care Provider Encounter Details Date Type Department Care Team Description 06/25/2014 Office Visit Dermatology at [place], [place]; [facility] (perioral dermatitis); [address] Irritant contact dermatitis [facility] [place], [place] [phone] Social History Tobacco Use Types Packs/Day Years Used Date Smoking Tobacco: Never Assessed Sex Assigned at Date Recorded [...] after she returned from a trip to [place] in March 2014, she had an itchy [...] and this has helped. She called a [place] physician friend of hers in [place] who had recommended a baking soda poultice for the rash, and that seemed to help. A letter of introduction from Dr. Iniguez points out that the patient has no history of weight loss, no thyroid disease with a normal TSH in the last year, and no history of hepatitis. She has not noted adenopathy. Physical examination reveals a pleasant, 58-year-old woman, originally from [place], who has today a few excoriated, erythematous [...] cause documented in this encounter Care Teams Licensed Insurance Sales Agent Relationship Specialty Start Date End Date Juaquin Iniguez MD PCP - General 05/10/[address] [place] [id number] documented as of this encounter
--- OUTSIDE RECORDS SUMMARY | 2022-05-05 18:46 | XMS_ITS | Continuity of Care Document ---
:[address] [facility] Address [address] [place] [address] Care Team Providers Name Role Phone Juaquin Anand Primary Care Physician [phone] Encounter [facility] Date(s): 04/06/22 - 04/06/[address] [address] Encounter Diagnosis Ovarian cyst (Discharge Diagnosis) - 04/06/22 Discharge Disposition: Home or Self Care Attending Physician: Alex Buck MD Admitting Physician: Alex Buck MD Referring Physician: Alex Buck MD Allergies, Adverse Reactions, Alerts Substance Reaction Severity Status amoxicillin Unknown Active amoxicillin Unknown Active sulfa drugs Unknown Active sulfa drugs Urticaria Unknown Active sulfa drugs Urticaria Unknown Active Assessment and Plan Future Appointments Medications folic acid 0 Refill(s) Start Date: [...] information PersonnelName: Hira GUADARRAMAJuaquin MD Address: Address: [address] [address]- [place]
--- OUTSIDE RECORDS SUMMARY | 2022-05-05 18:46 | XMS_ITS | Encounter Summary ---
:1955 Author Organization [facility] Address [address] [place] [address] Care Team Providers Name Role Phone Juaquin Iniguez MD Primary Care Provider Encounter Details Date Type Department Care Team Description 03/09/2022 Lab Requisition [facility] Outr Resulting Lab, Pathology & Laboratory Provider [facility] [address] [place] [id number] Social History Tobacco Use Types Packs/Day Years Used Date Smoking Tobacco: Never Smokeless Tobacco: Never Sex Assigned at Date Recorded Not on [...] Encounters Date Type Specialty Care Team Description 09/25/2022 Office Visit Rheumatology Milagros Evans MD [address] [facility], [facility], [address] [place], [place] [address] (Wo rk) documented as of this encounter Procedures Procedure Name Priority Date/Time Associated Diagnosis Comme nts CA 125 Routine 03/09/2022 14:28 EDT Results for this procedure are i n the results section . documented in this encounter Results CA 125 (03/09/2022 14:28 EDT) P athologist Signature CA 125 9 <30 U/mL 03/10/2022 [facility] 10:20 EDT [facility] Comment: NOTE: Serum CA 125 concentration should not be interpreted as absolute evidence for the presence or absence of malignant disease. Assayed on Siemens InSequentaur XPT usi ng chemiluminescent technology. ??Values obtained by using different assay methods cannot be used interchangeably. Specimen Anatomical Collection Method Collection Time Receive d Time (Source) Location / / Volume Laterality Blood VENOUS BLOOD / 03/09/2022 14:28 2 Unknown EDT 21:13 EDT Provider Outr Resulting Lab CHEMISTRY & BLOOD GAS JOANIE BRAY Performing Organization Address City/State/ZIP Code Phon e Number [facility] [address] [place] [address] SERVICES documented in this encounter Visit Diagnoses Not on filedocumented in this encounter Care Teams Halal Meat Packer Relationship Specialty Start Date End Date Juaquin Iniguez MD PCP - General 02/23/21 [address] [place] [address] documented as of this encounter
--- OUTSIDE RECORDS SUMMARY | 2022-05-05 18:47 | XMS_ITS | Encounter Summary ---
:1955 Author Organization [facility] Address [address] [place] [address] Care Team Providers Name Role Phone Juaquin Iniguez MD Primary Care Provider Encounter Details Date Type Department Care Team Description 02/25/2021 Phlebotomy Only 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, [facility], [address] [place], [place] [address] (Wo rk) documented as of this encounter Procedures Procedure Name Priority Date/Time Associated Comments Diagnosis SPEP, INCLUDES Routine 02/25/2021 16:31 Polymyalgia Results f or this QUANTITATION OF EDT rheumatica procedure ar e in MONOCLONAL SPIKE ([facility]) the results PERFORMABLE Positive [place] section. (antinuclear antibody) SSB ANTIBODIES BY Routine 02/25/2021 16:31 Polymyalgia Result s for this NORM EDT rheumatica procedure are i n ([facility]) the results Positive [place] section. (antinuclear antibody) SSA ANTIBODIES BY Routine 02/25/2021 16:31 Polymyalgia Result s for this NORM EDT rheumatica procedure are i n ([facility]) the results Positive [place] section. (antinuclear antibody) SM (PIEDRA) ANTIBODY Routine 02/25/2021 16:31 Polymyalgia Resu lts for this EDT rheumatica procedure are i n ([facility]) the results Positive [place] section. (antinuclear antibody) VITAMIN D (25,[place]) Routine 02/25/2021 16:31 Vitamin D Result s for this EDT deficiency procedure are i n the results section. REGIONAL DRIVER ANTIBODIES BY Routine 02/25/2021 16:31 Polymyalgia Result s for this NORM EDT rheumatica procedure are i n ([facility]) the results Positive [place] section. (antinuclear antibody) ANTI DNA (DOUBLE Routine 02/25/2021 16:31 Polymyalgia Results for this STRANDED) EDT rheumatica procedure are i n ([facility]) the results Positive [place] section. (antinuclear antibody) COMPLETE BLOOD COUNT Routine 02/25/2021 16:31 Polymyalgia Res ults for this AND DIFFERENTIAL EDT rheumatica procedure a re in ([facility]) the results Positive [place] section. (antinuclear antibody) C3 COMPLEMENT Routine 02/25/2021 16:31 Polymyalgia Results fo r this EDT rheumatica procedure are i n ([facility]) the results Positive [place] section. (antinuclear antibody) C4 COMPLEMENT Routine 02/25/2021 16:31 Polymyalgia Results fo r this EDT rheumatica procedure are i n ([facility]) the results Positive [place] section. (antinuclear antibody) TSH Routine 02/25/2021 16:31 Myalgia Results for this EDT procedure are i n the results section. SPEP, INCLUDES Routine 02/25/2021 16:31 Polymyalgia Results f or this QUANTITATION OF EDT rheumatica procedure ar e in MONOCLONAL SPIKE ([facility]) the results Positive [place] section. (antinuclear antibody) PROTEIN, TOTAL Routine 02/25/2021 16:31 Polymyalgia EDT rheumatica ([facility]) Positive [place] (antinuclear antibody) HEMOGLOBIN A1C Routine 02/25/2021 16:31 Diabetes mellitus Resu lts for this EDT screening procedure are in Abnormal finding of the resu lts blood chemistry, section. unspecified COMPREHENSIVE Routine 02/25/2021 16:31 Polymyalgia Results fo r this METABOLIC PANEL (CMP) EDT rheumatica proced ure are in ([facility]) the results Positive [place] section. (antinuclear antibody) URINE CHEMICAL (DIP) & Routine 02/25/2021 16:30 Polymyalgia R esults for this SEDIMENT (MICRO) EDT rheumatica procedure a re in WITHOUT REFLEX TO ([facility]) the results CULTURE Positive [place] section. (antinuclear antibody) documented in this encounter Results (ABNORMAL) SPEP, INCLUDES QUANTITATION OF MONOCLONAL SPIKE PERFORMABLE (02/25/2021 16:31 EDT) Component Value Ref Test Analysis Performed At [facility] gist Range Method Time Signature Albumin % 63.9 55.8 - 02/28/2021 [facility] 66.1 % 13:12 [facility] LABORATORY SERVICES Alpha-1 % 4.8 2.9 - 02/28/2021 [facility] 4.9 % 13:12 [facility] LABORATORY SERVICES Alpha-2 % 9.6 7.1 - 02/28/2021 [facility] 11.8 % 13:12 [facility] LABORATORY SERVICES Beta % 11.1 8.4 - 02/28/2021 [facility] 13.1 % 13:12 [facility] LABORATORY SERVICES Gamma % 10.6 (L) 11.1 - 02/28/2021 [facility] 18.8 % 13:12 [facility] LABORATORY SERVICES SPEP Comment No apparent 02/28/2021 [facility] monoclonal protein 13:12 [facility] seen on serum LABORATORY electrophoresis SERVICES Comment: See scanned/supplementary repor t. Total Protein 7.6 6.3 - 8.2 g/dL 02/28/2021 13:12 [facility] LABORATORY SERVICES Specimen Anatomical Collection Method / Collection Time Recei ashlee Time (Source) Location / Volume Laterality Blood VENOUS BLOOD / Venipuncture / 02/25/2021 16:31 021 Unknown Unknown EDT 17:03 EDT Narrative This result has an attachment that is no t available. Milagros Evans MD CHEMISTRY & BLOOD GAS ORDERA BLES Performing Organization Address City/State/ZIP Code Phon e Number [facility] [address] [place] [address] SERVICES PROTEIN, TOTAL (02/25/2021 16:31 EDT) Specimen Anatomical Collection Method / Collection Time Recei ashlee Time (Source) Location / Volume Laterality Blood VENOUS BLOOD / Venipuncture / 02/25/2021 16:31 021 Unknown Unknown EDT 17:03 EDT Milagros Evans MD CHEMISTRY & BLOOD GAS ORDERA BLES Performing Organization Address City/[facility]/ZIP Code Phon e Number [facility] [address] [place] [address] SERVICES TSH (02/25/2021 16:31 EDT) P athologist Signature TSH 2.69 0.47 - 4.68 02/25/2021 [facility] uIU/mL 18:05 EDT CENTER LABORATORY SERVICES Specimen Anatomical Collection Method / Collection Time Recei ashlee Time (Source) Location / Volume Laterality Blood VENOUS BLOOD / Venipuncture / 02/25/2021 16:31 021 Unknown Unknown EDT 17:03 EDT Narrative [facility] SERVICES - 02/25/2021 18:05 EDT The results of this assay can be falsely lowered due to the consumption of Biotin. Milagros Evans MD CHEMISTRY & BLOOD GAS ORDERA BLES Performing Organization Address City/[facility]/ZIP Code Phon e Number [facility] [address] [place] [address] SERVICES (ABNORMAL) VITAMIN D (25,[place]) (02/25/2021 16:31 EDT) Analysis Performed At Patho logist Time Signature 25OH Vitamin D 24.7 (L) 30.0 - 02/28/2021 [facility] Tot 100.0 12:27 EDT CENTER ng/mL LABORATORY SERVICES Comment: Vitamin D 25,[place] Interpretive Ranges: Deficiency: ??<10.0 ng/mL Insufficiency: ??10.0 - 30.0 ng/mL Sufficiency: ??30.0 - 100.0 ng/mL Toxicity: ??>100.0 ng/mL Specimen Anatomical Collection Method / Collection Time Recei ashlee Time (Source) Location / Volume Laterality Blood VENOUS BLOOD / Venipuncture / 02/25/2021 16:31 021 Unknown Unknown EDT 17:03 EDT Milagros Evans MD CHEMISTRY & BLOOD GAS ORDERA BLES Performing Organization Address City/State/ZIP Code Phon e Number [facility] [address] [place] [address] SERVICES (ABNORMAL) HEMOGLOBIN A1C (02/25/2021 16:31 EDT) Analysis Performed At Patho logist Time Signature Hemoglobin A1c 6.1 (H) <5.7 % 02/25/2021 [facility] 22:02 EDT CENTER LABORATORY SERVICES Comment: New methodology in use 09/16/2020 Glycemic Status References: Normal: ??<5.7% Pre-Diabetes: ??5.7% - 6.4% Diagnostic of Diabetes: ??> or = 6.5% (i f confirmed) Goals for glycemic control in diabetics (ADA 2017): <7.0% target for non adults with diabetes. <7.5% target for children and adolescent s with Type I Diabetes. More or less stringent targets may be ap propriate for individual patients. Est Avg Glucose 128 mg/dL 02/25/2021 22:02 EDT [facility] SERVICES Comment: The eAG represents the A1c resu lt expressed as average glucose in mg/dL. Specimen Anatomical Collection Method / Collection Time Recei ashlee Time (Source) Location / Volume Laterality Blood VENOUS BLOOD / Venipuncture / 02/25/2021 16:31 021 Unknown Unknown EDT 17:04 EDT Milagros Evans MD CHEMISTRY & BLOOD GAS SEBASTI[address] ST Performing Organization Address City/[facility]/ZIP Code Phon e Number [facility] [address] [place] [address] SERVICES SSB ANTIBODIES BY NORM (02/25/2021 16:31 EDT) athologist Signature SSB Antibody 1.1 <20.0 Units 03/01/2021 [facility] 12:50 EDT CENTER LABORATORY SERVICES Comment: ? Negative: <20.0 Units ? Weak Positive: 20.0 - 39.9 Units ? Moderate Positive: 40 .0 - 80.0 Units ? Strong Positive: >80. 0 Units Results were obtained with the [employer] FLYNN NTA Lite SS-B NORM. ??SS-B values obtained with different manufacturers' assay methods may not be used interchangeably. ??The magnitude of the reported IgG levels cannot be correlated to an endpoint titer. Specimen Anatomical Collection Method / Collection Time Recei ashlee Time (Source) Location / Volume Laterality Blood VENOUS BLOOD / Venipuncture / 02/25/2021 16:31 021 Unknown Unknown EDT 17:03 EDT Milagros Evans MD IMMUNOLOGY AND SEROLOGY JOANIE BRAY Performing Organization Address City/[facility]/ZIP Code Phon e Number [facility] [address] [place] [address] SERVICES SSA ANTIBODIES BY NORM (02/25/2021 16:31 EDT) P athologist Signature SSA Antibody 3.8 <20.0 Units 03/01/2021 [facility] 12:50 EDT CENTER LABORATORY SERVICES Comment: ? Negative: <20.0 Units ? Weak Positive: 20.0 - 39.9 Units ? Moderate Positive: 40 .0 - 80.0 Units ? Strong Positive: >80. 0 Units Results were obtained with the [employer] FLYNN NTA Lite SS-A NORM. ??SS-A values obtained with different manufacturers' assay methods may not be used interchangeably. ??The magnitude of the reported IgG levels cannot be correlated to an endpoint titer. Specimen Anatomical Collection Method / Collection Time Recei ashlee Time (Source) Location / Volume Laterality Blood VENOUS BLOOD / Venipuncture / 02/25/2021 16:31 021 Unknown Unknown EDT 17:04 EDT Milagros Evans MD IMMUNOLOGY AND SEROLOGY ORDYousuf BRAY Performing Organization Address [facility]/ZIP Code Phon e Number [facility] [address] [place] [address] SERVICES REGIONAL DRIVER ANTIBODIES BY NORM (02/25/2021 16:31 EDT) athologist Signature REGIONAL DRIVER Antibody 4.2 <20.0 Units 03/01/2021 [facility] 13:41 EDT CENTER LABORATORY SERVICES Comment: ? Negative: <20.0 Units ? Weak Positive: 20.0 - 39.9 Units ? Moderate Positive: 40 .0 - 80.0 Units ? Strong Positive: >80. 0 Units Results were obtained with the [employer] Flynn nta Lite REGIONAL DRIVER NORM. REGIONAL DRIVER values obtained with different fishing gear mechanic's assay methods may not be used interchangeaby. ??The magnitude of the reported IgG levels cannot be be correlated to an endpoint titer. A positive result in the [employer] REGIONAL DRIVER NORM indicates the presence of antibodies reactive with the REGIONAL DRIVER/Sm complex but cannot distinguish between anti- Sm and anti-REGIONAL DRIVER activity. Specimen Anatomical Collection Method / Collection Time Recei ashlee Time (Source) Location / Volume Laterality Blood VENOUS BLOOD / Venipuncture / 02/25/2021 16:31 021 Unknown Unknown EDT 17:04 EDT Milagros Evans MD IMMUNOLOGY AND SEROLOGY JOANIE BRAY Performing Organization Address [facility]/ZIP [facility] Phon e Number [facility] [address] [place] [address] SERVICES SM ([place]) ANTIBODY (02/25/2021 16:31 EDT) [facility] SM ([place]) 2.7 <20.0 03/01/2021 [facility] Antibody Units 13:36 EDT CENTER LABORATORY SERVICES Comment: ? Negative: <20.0 Units ? Weak Positive: 20.0 - 39.9 Units ? Moderate Positive: 40 .0 - 80.0 Units ? Strong Positive: >80. 0 Units Results were obtained with the [employer] NTA Lite Sm NORM. ??Sm values obtained with different manufacturers' assay methods may not be used interchangeably. ??The magnitude of the reported IgG levels cannot be correlated to an endpoint titer. Specimen Anatomical Collection Method / Collection Time Recei ashlee Time (Source) Location / Volume Laterality Blood VENOUS BLOOD / Venipuncture / 02/25/2021 16:31 021 Unknown Unknown EDT 17:04 EDT Milagros Evans MD IMMUNOLOGY AND SEROLOGY JOANIE BRAY Performing Organization Address City/State/ZIP Code Phon e Number [facility] [address] [place] [address] SERVICES ANTI DNA (DOUBLE STRANDED) (02/25/2021 16:31 EDT) [facility] Anti-DNA 16.4 <30.0 03/01/2021 [facility] (Double IU/mL 11:38 EDT CENTER Stranded) LABORATORY SERVICES Comment: ? Negative: ??<30.0 IU/mL ? Borderline Positive: ??30.0 - 75.0 IU/mL ? Positive: ??>75.0 IU/mL Results were obtained with the [employer] FLYNN NTA Lite dsDNA SC NORM assay on the [employer]. Specimen Anatomical Collection Method / Collection Time Recei ashlee Time (Source) Location / Volume Laterality Blood VENOUS BLOOD / Venipuncture / 02/25/2021 16:31 021 Unknown Unknown EDT 17:04 EDT Milagros Evans MD IMMUNOLOGY AND SEROLOGY JOANIE BRAY Performing Organization Address City/State/ZIP Code Phon e Number [facility] [address] [place] [address] SERVICES C3 COMPLEMENT (02/25/2021 16:31 EDT) athologist Signature C3 Complement 151 81 - 157 02/28/2021 [facility] mg/dL 10:37 EDT CENTER LABORATORY SERVICES Specimen Anatomical Collection Method / Collection Time Recei ashlee Time (Source) Location / Volume Laterality Blood VENOUS BLOOD / Venipuncture / 02/25/2021 16:31 021 Unknown Unknown EDT 17:03 EDT Milagros Evans MD CHEMISTRY & BLOOD GAS ORDERA BLES Performing Organization Address City/[facility]/ZIP Code Phon e Number [facility] [address] [place] [address] SERVICES C4 COMPLEMENT (02/25/2021 16:31 EDT) athologist Signature C4 Complement 36 13 - 39 02/28/2021 [facility] mg/dL 10:37 EDT CENTER LABORATORY SERVICES Specimen Anatomical Collection Method / Collection Time Recei ashlee Time (Source) Location / Volume Laterality Blood VENOUS BLOOD / Venipuncture / 02/25/2021 16:31 021 Unknown Unknown EDT 17:03 EDT Milagros Evans MD CHEMISTRY & BLOOD GAS ORDERA BLES Performing Organization Address City/[facility]/ZIP Code Phon e Number [facility] [address] [place] [address] SERVICES (ABNORMAL) COMPREHENSIVE METABOLIC PANEL (CMP) (02/25/2021 16:31 EDT) athologist Signature Sodium 141 136 - 145 02/25/2021 [facility] mmol/L 17:32 EDT CENTER LABORATORY SERVICES Potassium 4.1 3.5 - 5.0 02/25/2021 [facility] mEq/L 17:32 EDT CENTER LABORATORY SERVICES Chloride 96 96 - 110 02/25/2021 [facility] mEq/L 17:32 EDT CENTER LABORATORY SERVICES CO2 Total 33 (H) 22 - 32 02/25/2021 [facility] mEq/L 17:32 EDT CENTER LABORATORY SERVICES Glucose 105 (H) 70 - 100 02/25/2021 [facility] mg/dL 17:32 [facility] LABORATORY SERVICES BUN 23 10 - 26 02/25/2021 [facility] mg/dL 17:32 [facility] LABORATORY SERVICES Creatinine 0.81 0.52 - 1.04 02/25/2021 [facility] mg/dL 17:32 [facility] LABORATORY SERVICES eGFR 76 >60 02/25/2021 [facility] mL/min/1.73 17:32 [facility] m2 LABORATORY SERVICES Comment: eGFR calculated using CKD-EPI e quation for non- Americans. Multiply eGFR by 1.16 for patien ts. Total Protein 7.6 6.3 - 8.2 g/dL 02/25/2021 17:32 [facility] LABORATORY SERVICES Albumin 4.8 3.4 - 4.9 g/dL 02/25/2021 17:32 [facility] LABORATORY SERVICES Alkaline Phosphatase 62 38 - 126 U/L 02/25/2021 17:32 [facility] LABORATORY SERVICES AST 24 15 - 46 U/L 02/25/2021 17:32 [facility] LAB[facility]ATORY SERVICES ALT 19 <35 U/L 02/25/2021 17:32 [facility]ORATORY SERVICES Bilirubin, Total <0.5 <1.4 mg/dL 02/25/2021 17:32 [facility] LABORATORY SERVICES Calcium 10.2 8.5 - 10.5 02/25/2021 17:32 [facility] mg/dL LABORATORY SERVICES Calculated Calcium 9.6 8.5 - 10.5 02/25/2021 17:32 [facility] mg/dL LABORATORY SERVICES Specimen Anatomical Collection Method / Collection Time Recei ashlee Time (Source) Location / Volume Laterality Blood VENOUS BLOOD / Venipuncture / 02/25/2021 16:31 021 Unknown Unknown EDT 17:03 EDT Milagros Evans MD CHEMISTRY & BLOOD GAS ORDERA BLES Performing Organization Address City/State/ZIP Code Phon e Number [facility] [address] [place] [address] SERVICES (ABNORMAL) COMPLETE BLOOD COUNT AND DIFFERENTIAL (02/25/2021 16:31 EDT) [facility] gist Method Time Signature WBC 8.84 4.00 - 02/25/2021 [facility] 12.40 17:16 EDT CENTER K/cmm LABORATORY SERVICES RBC 5.57 (H) 3.86 - 02/25/2021 [facility] 5.04 17:16 EDT CENTER M/cmm LABORATORY SERVICES Hemoglobin 15.4 (H) 11.6 - 02/25/2021 [facility] 15.2 17:16 EDT CENTER gm/dL LABORATORY SERVICES HCT 47.4 (H) 34.9 - 02/25/2021 [facility] 44.4 % 17:16 EDT CENTER LABORATORY SERVICES MCV 85 81 - 98 02/25/2021 [facility] fl 17:16 EDT CENTER LABORATORY SERVICES MCH 27.6 26.7 - 02/25/2021 [facility] 33.3 pg 17:16 EDT CENTER LABORATORY SERVICES MCHC 32.5 32.1 - 02/25/2021 [facility] 35.9 17:16 EDT CENTER gm/dL LABORATORY SERVICES RDW-CV 13.3 <14.7 % 02/25/2021 [facility] 17:16 EDT CENTER LABORATORY SERVICES RDW-SD 41.5 <50.4 fl 02/25/2021 [facility] 17:16 EDT CENTER LABORATORY SERVICES PLT 346 141 - 377 02/25/2021 [facility] K/[facility] 17:16 EDT CENTER LABORATORY SERVICES MPV 9.0 (L) 9.5 - 02/25/2021 [facility] 12.7 fl 17:16 EDT CENTER LABORATORY SERVICES Neutrophils 63.3 % 02/25/2021 [facility] 17:16 EDT CENTER LABORATORY SERVICES Lymphocytes 26.9 % 02/25/2021 [facility] 17:16 EDT CENTER LABORATORY SERVICES Monocytes 7.4 % 02/25/2021 [facility] 17:16 EDT CENTER LABORATORY SERVICES Eosinophils 1.5 % 02/25/2021 [facility] 17:16 EDT CENTER LABORATORY SERVICES Basophils 0.6 % 02/25/2021 [facility] 17:16 EDT CENTER LABORATORY SERVICES Immature Grans 0.3 % 02/25/2021 [facility] 17:16 EDT CENTER LABORATORY SERVICES Absolute 5.60 2.20 - 02/25/2021 [facility] Neutrophils 8.85 17:16 EDT CENTER /[facility] LABORATORY SERVICES Absolute 2.38 1.09 - 02/25/2021 [facility] Lymphocytes 3.30 17:16 EDT CENTER /[facility] LABORATORY SERVICES Absolute 0.65 0.10 - 02/25/2021 [facility] Monocytes 0.80 17:16 EDT CENTER /[facility] LABORATORY SERVICES Absolute 0.13 0.03 - 02/25/2021 [facility] Eosinophils 0.61 17:16 EDT CENTER /[facility] LABORATORY SERVICES Absolute 0.05 0.01 - 02/25/2021 [facility] Basophils 0.11 17:16 EDT CENTER /[facility] LABORATORY SERVICES Absolute 0.03 0.00 - 02/25/2021 [facility] Immature Grans 0.06 17:16 EDT CENTER /[facility] LABORATORY SERVICES Type of Auto 02/25/2021 [facility] Differential: 17:16 EDT CENTER LABORATORY SERVICES Specimen Anatomical Collection Method / Collection Time Recei ashlee Time (Source) Location / Volume Laterality Blood VENOUS BLOOD / Venipuncture / 02/25/2021 16:31 021 Unknown Unknown EDT 17:04 EDT Milagros Evans MD PACKAGES & DNA PROBE ORDERAB LES Performing Organization Address City/State/ZIP Code Phon e Number [facility] [address] [place] [address] SERVICES URINE CHEMICAL (DIP) & SEDIMENT (MICRO) WITHOUT REFLEX TO CULTURE (02/25/2021 16:30 EDT) [facility] Method Time Signature Color UA Yellow Colorless, 02/25/2021 [facility] Yellow 17:44 EDT CENTER LABORATORY SERVICES Clarity UA Clear Clear 02/25/2021 [facility] 17:44 EDT CENTER LABORATORY SERVICES Glucose UA Negative Negative 02/25/2021 [facility] 17:44 EDT CENTER LABORATORY SERVICES Bilirubin UA Negative Negative 02/25/2021 [facility] 17:44 EDT CENTER LABORATORY SERVICES Ketones UA Negative Negative 02/25/2021 [facility] 17:44 EDT CENTER LABORATORY SERVICES Specific 1.014 1.001 - 02/25/2021 [facility] [place], Urine 1.035 17:44 EDT CENTER LABORATORY SERVICES Blood UA Negative Negative 02/25/2021 [facility] 17:44 [facility] LABORATORY SERVICES Urobilinogen UA Normal Normal mg/dL 02/25/2021 [facility] 17:44 [facility] LABORATORY SERVICES Nitrite UA Negative Negative 02/25/2021 [facility] 17:44 [facility] SERVICES Leukocyte Negative Negative 02/25/2021 [facility] Esterase UA 17:44 [facility] LAB[facility]ORY SERVICES Protein UA Negative Negative 02/25/2021 [facility] 17:44 [facility] LAB[facility]ATORY SERVICES pH, UA 6.5 4.6 - 8.0 02/25/2021 [facility] 17:44 [facility] LABORATORY SERVICES Urine RBC Count, 0 - 2 0 - 2 02/25/2021 [facility] Auto Cells/HPF 17:44 [facility] LABORATORY SERVICES Urine WBC Count, 0 - 3 0 - 3 02/25/2021 [facility] Auto Cells/HPF 17:44 [facility] LABORATORY SERVICES Urine Squamous None Seen None Seen 02/25/2021 [facility] Count, Auto Cells/HPF 17:44 [facility] LABORATORY SERVICES Urine Hyaline <=10 <=10 02/25/2021 [facility] Cast Count, Auto Casts/LPF 17:44 [facility] LABORATORY SERVICES Urine Bacteria None Seen None Seen 02/25/2021 [facility] Count, Auto Bacteria/HPF 17:44 [facility] LABORATORY SERVICES Specimen Anatomical Collection Method Collection Time Receive d Time (Source) Location / / Volume Laterality Urine URINE SPECIMEN Urine Collect / 02/25/2021 16:30 2020 COLLECTION, CLEAN Unknown EDT 16:52 EDT CATCH / Unknown Narrative [facility] - 02/25/2021 17:44 EDT Urine Sediment Analysis results are unre liable on urines that are unrefrigerated for >2 hrs or refrigerated >8 hrs. Milagros Evans MD URINALYSIS ORDERABLES Performing Organization Address City/State/ZIP Code Phon e Number [facility] [address] [place] [address] SERVICES documented in this encounter Visit Diagnoses Diagnosis Polymyalgia rheumatica (HCC-CMS) (HCC) Polymyalgia rheumatica Positive [place] (antinuclear antibody) Other and unspecified nonspecific immuno logical findings Diabetes mellitus screening Screening for diabetes mellitus Abnormal finding of blood chemistry, uns pecified Vitamin D deficiency Unspecified vitamin D deficiency Myalgia Mylagia and myositis, unspecified documented in this encounter Care Teams Yarn Spooler Relationship Specialty Start Date End Date Juaquin Iniguez MD PCP - General 02/23/[address] [place] [address] [address] documented as of this encounter
--- OUTSIDE RECORDS SUMMARY | 2022-05-05 18:47 | XMS_ITS | Encounter Summary ---
:1955 Author Organization [facility] Address [address] [place] [address] Care Team Providers Name Role Phone Juaquin [...] red To Contact Rheumatology Diagnoses Polymyalgia rheumatica ([facility]) Fibromyalgia Juaquin Iniguez MD [facility] Ep5 Rheumatology [address] [place] [address] [place] [address] Fax: Referral ID Status Reason Start Expiration Visits Visits Date Date Requested Authorized [id number] Receiving Office 1 1 to Obtain Authorization Encounter Details Date Type Department Care Team Description 02/25/2021 Office Visit [facility] Milagros Evans Polymya lgia rheumatica ([facility]) (Primary Dx); Rheumatology & MD Amisha Positive [place] (antinuclear antibody); Immunology - Main [address] Diabetes mellitus screening; [address] Abnormal finding of blood chemistry, uns pecified ; [address] [facility], [facility] Vitamin D deficiency; [place] [address] [address], Level 5 Myalgia [phone] [place] [address] (Wo rk) Social History Tobacco [...] of PMR is hard to confirm. A structural rigger can do blood tests to look for [...] are signs of this disease. ?? 2019 [employer] PREDNISONE (DELTASONE) - Patient [...] to be safe while . ?? 2019 [employer] documented in this encounter Ordered Prescriptions Prescription Sig Dispensed Refills Start Date End Date predniSONE (DELTASONE) 5 20 mg daily for 2 120 Tablet 2 02/1603/23/2021 mg tablet week, then taper by 2.5 mg every 2 weeks until down to 10 mg daily or as directed. documented in this encounter Progress Notes Milagros Evans MD - 02/25/2021 1440 EDT [facility] Department of Rheumatology Follow Up Visit PCP [...] Denies dactylitis. Denies enthesitis. 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 She is up to date with colonoscopy (this or part year). Mammogram is pending. For PAP smear, she is not up to date. Review of Systems: I have reviewed the systems reviewed by the nurse Past Medical History: Diagnosis Date ??? Essential hypertension ??? PMR (polymyalgia rheumatica) ([facility]) ??? Vitiligo Past Surgical History: Procedure [...] and Family: Not on file ??? Attends [employer] Services: Not on file ??? Active Member [...] ??? Essential hypertension ??? PMR (polymyalgia rheumatica) ([facility]) Assessment Plan: Polymyalgia rheumatica. Her presentation is [...] Will discuss DXA scan at follow up senior care systemic steroids Checked baseline hba1c Plan: As [...] of PMR is hard to confirm. A structural rigger can do blood tests to look for [...] are signs of this disease. ?? 2019 [employer] PREDNISONE (DELTASONE) - Patient [...] to be safe while . ?? 2019 [employer] I spent a total of 60 minutes on the date of this encounter meeting with the patient and reviewing documentation/coordinating care as described in the above note. No procedures were performed at the time of the visit. Milagros Evans MD Department of Rheumatology Attending Physician Pager: [phone] Addenda: Reviewed results with patient on 03/02/21 [...] UA Negative Negative Ketones Negative Negative Specific [place], Urine 1.001 - 1.035 1.014 Blood, UA [...] 16.4 Sm ([place]) Antibody <20.0 Units 2.7 SIDING STAPLER Antibody <20.0 Units 4.2 SSA Antibody <20.0 Units 3.8 SSB Antibody <20.0 Units 1.1 25OH Vitamin D Tot 30.0 - 100.0 ng/mL 24.7 (L) TSH 0.47 - 4.68 uIU/mL 2.69 Noticed prediabetes and low vit D Reports she had a visit with her PCP and he is aware Will monitor her weight. If she continues to lose weight, will pursue gr scanning in search for hidden malignancy. Milagros Evans MD documented in this encounter Plan of Treatment Upcoming Encounters Date Type Specialty Care Team Description 09/25/2022 Office Visit Rheumatology Milagros Evans MD [address] [facility], [facility], [address] [place] [address] (Wo rk) documented as of this encounter Results TSH (02/25/2021 16:31 EDT) athologist Signature TSH 2.69 0.47 - 4.68 02/25/2021 [facility] uIU/mL 18:05 EDT CENTER LABORATORY SERVICES Specimen Anatomical Collection Method / Collection Time Recei ashlee Time (Source) Location / Volume Laterality Blood VENOUS BLOOD / Venipuncture / 02/25/2021 16:31 021 Unknown Unknown EDT 17:03 EDT Narrative [facility] - 02/25/2021 18:05 EDT The results of this assay can be falsely lowered due to the consumption of Biotin. Milagros Evans MD CHEMISTRY & BLOOD GAS ORDERA BLES Performing Organization Address City/[facility] Code Phon e Number [facility] [address] [place] [address] SERVICES (ABNORMAL) VITAMIN D (25,OH) (02/25/2021 16:31 EDT) Analysis Performed At [facility] Signature 25OH Vitamin D 24.7 (L) 30.0 - 02/28/2021 [facility] Tot 100.0 12:27 EDT CENTER [...] Organization Address City/State/ZIP Code Phon e Number [facility] [address] [place] [phone] SERVICES (ABNORMAL) HEMOGLOBIN A1C (02/25/2021 16:31 EDT) Analysis Performed At [facility] Signature Hemoglobin A1c 6.1 (H) <5.7 % 02/25/2021 [facility] 22:02 EDT CENTER LABORATORY SERVICES [...] Avg Glucose 128 mg/dL 02/25/2021 22:02 EDT [facility] Comment: The eAG represents the A1c resu lt expressed as average glucose in mg/dL. Specimen Anatomical Collection Method / Collection Time Recei ashlee Time (Source) Location / Volume Laterality Blood VENOUS BLOOD / Venipuncture / 02/25/2021 16:31 021 Unknown Unknown EDT 17:04 EDT Milagros Evans MD CHEMISTRY & BLOOD GAS ORDERA BLES Performing Organization Address City/State/ZIP Code Phon e Number [facility] [address] [place] [address] SERVICES SSB ANTIBODIES BY NORM (02/25/2021 16:31 EDT) athologist Signature SSB Antibody 1.1 <20.0 Units 03/01/2021 [facility] 12:50 EDT CENTER LABORATORY SERVICES Comment: ? Negative: <20.0 Units ? Weak Positive: 20.0 - 39.9 Units ? Moderate Positive: 40 .0 - 80.0 Units ? Strong Positive: >80. 0 Units Results were obtained with the INOVA FLYNN NTA Lite SS-B NORM. ??SS-B values obtained with different manufacturers' assay methods may not be used interchangeably. ??The magnitude of the reported IgG levels cannot be correlated to an endpoint titer. Specimen Anatomical Collection Method / Collection Time Recei ashlee Time (Source) Location / Volume Laterality Blood VENOUS BLOOD / Venipuncture / 02/25/2021 16:31 021 Unknown Unknown EDT 17:03 EDT Milagros Evnas MD IMMUNOLOGY AND SEROLOGY JOANIE BRAY Performing Organization Address City/[facility]/ZIP [facility] Phon e Number [facility] [address] [place] [address] SERVICES SSA ANTIBODIES BY NORM (02/25/2021 16:31 EDT) athologist Signature SSA Antibody 3.8 <20.0 Units 03/01/2021 [facility] 12:50 EDT CENTER LABORATORY SERVICES Comment: ? [...] AND SEROLOGY JOANIE BRAY Performing Organization Address [facility]/ZIP [facility] Phon e Number [facility] [address] [place] [address] SERVICES SIDING STAPLER ANTIBODIES BY NORM (02/25/2021 16:31 EDT) athologist Signature SIDING STAPLER Antibody 4.2 <20.0 Units 03/01/2021 [facility] 13:41 EDT CENTER LABORATORY SERVICES Comment: ? Negative: <20.0 Units ? Weak Positive: 20.0 - 39.9 Units ? Moderate Positive: 40 .0 - 80.0 Units ? Strong Positive: >80. 0 Units Results were obtained with the Inova Flynn nta Lite SID[place] STAPL[place] NORM. SIDING STAPLER values obtained with different [employer] assay methods may not be used interchangeaby. ??The magnitude of the reported IgG levels cannot be be correlated to an endpoint titer. A positive result in the Quanta Lite SIDING STAPLER NORM indicates the presence of antibodies reactive with the SIDING STAPLER/Sm complex but cannot distinguish between anti- Sm and anti-SIDING STAPLER activity. Specimen Anatomical Collection Method / Collection Time Recei ashlee Time (Source) Location / Volume Laterality Blood VENOUS BLOOD / Venipuncture / 02/25/2021 16:31 021 Unknown Unknown EDT 17:04 EDT Milagros Evans MD IMMUNOLOGY AND SEROLOGY JOANIE BRAY Performing Organization Address City/State/ZIP Code Phon e Number [facility] [address] [place] [address] SERVICES SM ([place]) ANTIBODY (02/25/2021 16:31 EDT) athologist Signature SM ([place]) 2.7 <20.0 03/01/2021 [facility] Antibody Units 13:36 EDT CENTER LABORATORY [...] AND SEROLOGY JOANIE BRAY Performing Organization Address City/[facility]/ZIP Code Phon e Number [facility] [address] [place] [address] SERVICES ANTI DNA (DOUBLE STRANDED) (02/25/2021 16:31 EDT) athologist Signature Anti-DNA 16.4 <30.0 03/01/2021 [facility] (Double IU/mL 11:38 EDT CENTER Stranded) LABORATORY SERVICES Comment: ? Negative: ??<30.0 IU/mL ? Borderline Positive: ??30.0 - 75.0 IU/mL ? Positive: ??>75.0 IU/mL Results were obtained with the Gini.net FLYNN NTA Lite dsDNA SC NORM assay on the Ridemaker[employer] DSX. Specimen Anatomical Collection Method / Collection Time Recei ashlee Time (Source) Location / Volume Laterality Blood VENOUS BLOOD / Venipuncture / 02/25/2021 16:31 021 Unknown Unknown EDT 17:04 EDT Milagros Evans MD IMMUNOLOGY AND SEROLOGY JOANIE BRAY Performing Organization Address City/[facility]/ZIP Code Phon e Number [facility] [address] [place] [address] SERVICES C3 COMPLEMENT (02/25/2021 16:31 EDT) athologist Signature C3 Complement 151 81 - 157 02/28/2021 [facility] mg/dL 10:37 EDT CENTER LABORATORY SERVICES Specimen Anatomical Collection Method / Collection Time Recei ashlee Time (Source) Location / Volume Laterality Blood VENOUS BLOOD / Venipuncture / 02/25/2021 16:31 021 Unknown Unknown EDT 17:03 EDT Milagros Evans MD CHEMISTRY & BLOOD GAS ORDERA BLES Performing Organization Address City/State/ZIP Code Phon e Number [facility] [address] [place] [address] SERVICES C4 COMPLEMENT (02/25/2021 16:31 EDT) athologist Signature C4 Complement 36 13 - 39 02/28/2021 [facility] mg/dL 10:37 [facility] LABORATORY SERVICES Specimen Anatomical Collection Method / Collection Time Recei ashlee Time (Source) Location / Volume Laterality Blood VENOUS BLOOD / Venipuncture / 02/25/2021 16:31 021 Unknown Unknown EDT 17:03 EDT Milagros Evans MD CHEMISTRY & BLOOD GAS ORDERA BLES Performing Organization Address City/State/ZIP Code Phon e Number [facility] [address] [place] [address] SERVICES (ABNORMAL) COMPREHENSIVE METABOLIC PANEL (CMP) (02/25/2021 16:31 EDT) athologist Signature Sodium 141 136 - 145 02/25/2021 [facility] mmol/L 17:32 [facility] LABORATORY SERVICES Potassium 4.1 3.5 - 5.0 02/25/2021 [facility] mEq/L 17:32 [facility] LABORATORY SERVICES Chloride 96 96 - 110 02/25/2021 [facility] mEq/L 17:32 [facility] LABORATORY SERVICES CO2 Total 33 (H) 22 - 32 02/25/2021 [facility] mEq/L 17:32 [facility] LABORATORY SERVICES Glucose 105 (H) 70 - 100 02/25/2021 [facility] mg/dL 17:32 [facility] LABORATORY SERVICES BUN 23 10 - 26 02/25/2021 [facility] mg/dL 17:32 [facility] LABORATORY SERVICES Creatinine 0.81 0.52 - 1.04 02/25/2021 [facility] mg/dL 17:32 [facility] LABORATORY SERVICES eGFR 76 >60 02/25/2021 [facility] mL/min/1.73 17:32 [facility] m2 LABORATORY SERVICES Comment: eGFR calculated using CKD-EPI e quation for non- Americans. Multiply eGFR by 1.16 for patien ts. Total Protein 7.6 6.3 - 8.2 g/dL 02/25/2021 17:32 EDT [facility] SERVICES Albumin 4.8 3.4 - 4.9 g/dL 02/25/2021 17:32 EDT [facility] SERVICES Alkaline Phosphatase 62 38 - 126 U/L 02/25/2021 17:32 EDT [facility] LABORATORY SERVICES AST 24 15 - 46 U/L 02/25/2021 17:32 EDT [facility] LABORATORY SERVICES ALT 19 <35 U/L 02/25/2021 17:32 EDT [facility] CENTER LABORATORY SERVICES Bilirubin, Total <0.5 <1.4 mg/dL 02/25/2021 17:[address] [facility] LABORATORY SERVICES Calcium 10.2 8.5 - 10.5 02/25/2021 17:32 EDT [facility] mg/dL LABORATORY SERVICES Calculated Calcium 9.6 8.5 - 10.5 02/25/2021 17:32 EDT [facility] mg/dL LABORATORY SERVICES Specimen Anatomical Collection Method / Collection Time Recei ashlee Time (Source) Location / Volume Laterality Blood VENOUS BLOOD / Venipuncture / 02/25/2021 16:31 021 Unknown Unknown EDT 17:03 EDT Milagros Evans MD CHEMISTRY & BLOOD GAS ORDERA BLES Performing Organization Address City/State/ZIP Code Phon e Number [facility] [address] [place] [address] SERVICES (ABNORMAL) COMPLETE BLOOD COUNT AND DIFFERENTIAL (02/25/2021 16:31 EDT) [facility] gist Method Time Signature WBC 8.84 4.00 - 02/25/2021 [facility] 12.40 17:16 EDT CENTER K/cmm LABORATORY SERVICES RBC 5.57 (H) 3.86 - 02/25/2021 [facility] 5.04 17:16 EDT CENTER M/cmm LABORATORY SERVICES Hemoglobin 15.4 (H) 11.6 - 02/25/2021 [facility] 15.2 17:16 EDT CENTER gm/dL LABORATORY SERVICES HCT 47.4 (H) 34.9 - 02/25/2021 [facility] 44.4 % 17:16 EDT CENTER LABORATORY SERVICES MCV 85 81 - 98 02/25/2021 [facility] fl 17:16 EDT CENTER LABORATORY SERVICES MCH 27.6 26.7 - 02/25/2021 [facility] 33.3 pg 17:16 EDT CENTER LABORATORY SERVICES MCHC 32.5 32.1 - 02/25/2021 [facility] 35.9 17:16 EDT CENTER gm/dL LABORATORY SERVICES RDW-CV 13.3 <14.7 % 02/25/2021 [facility] 17:16 EDT CENTER LABORATORY SERVICES RDW-SD 41.5 <50.4 fl 02/25/2021 [facility] 17:16 EDT CENTER LABORATORY SERVICES PLT 346 141 - 377 02/25/2021 [facility] K/cmm 17:16 EDT CENTER LABORATORY SERVICES MPV 9.0 (L) 9.5 - 02/25/2021 [facility] 12.7 fl 17:16 EDT CENTER LABORATORY SERVICES Neutrophils 63.3 % 02/25/2021 [facility] 17:16 EDT CENTER LABORATORY SERVICES Lymphocytes 26.9 % 02/25/2021 [facility] 17:16 EDT CENTER LABORATORY SERVICES Monocytes 7.4 % 02/25/2021 [facility] 17:16 EDT CENTER LABORATORY SERVICES Eosinophils 1.5 % 02/25/2021 [facility] 17:16 EDT CENTER LABORATORY SERVICES Basophils 0.6 % 02/25/2021 [facility] 17:16 EDT CENTER LABORATORY SERVICES Immature Grans 0.3 % 02/25/2021 [facility] 17:16 EDT CENTER LABORATORY SERVICES Absolute 5.60 2.20 - 02/25/2021 [facility] Neutrophils 8.85 17:16 EDT CENTER K/cmm LABORATORY SERVICES Absolute 2.38 1.09 - 02/25/2021 [facility] Lymphocytes 3.30 17:16 EDT CENTER K/cmm LABORATORY SERVICES Absolute 0.65 0.10 - 02/25/2021 [facility] Monocytes 0.80 17:16 EDT CENTER K/cmm LABORATORY SERVICES Absolute 0.13 0.03 - 02/25/2021 [facility] Eosinophils 0.61 17:16 EDT CENTER K/cmm LABORATORY SERVICES Absolute 0.05 0.01 - 02/25/2021 [facility] Basophils 0.11 17:16 EDT CENTER K/cmm LABORATORY SERVICES Absolute 0.03 0.00 - 02/25/2021 [facility] Immature Grans 0.06 17:16 EDT CENTER K/cmm LABORATORY SERVICES Type of Auto 02/25/2021 [facility] Differential: 17:16 EDT CENTER LABORATORY SERVICES Specimen Anatomical Collection Method / Collection Time Recei ashlee Time (Source) Location / Volume Laterality Blood VENOUS BLOOD / Venipuncture / 02/25/2021 16:31 021 Unknown Unknown EDT 17:04 EDT Milagros Evans MD PACKAGES & DNA PROBE ORDERAB LES Performing Organization Address City/State/ZIP Code Phon e Number [facility] [address] [place] [address] SERVICES URINE CHEMICAL (DIP) & SEDIMENT (MICRO) WITHOUT REFLEX TO CULTURE (02/25/2021 16:30 EDT) [facility] Method Time Signature Color UA Yellow Colorless, 02/25/2021 [facility] Yellow 17:44 EDT CENTER LABORATORY SERVICES Clarity UA Clear Clear 02/25/2021 [facility] 17:44 EDT CENTER LABORATORY SERVICES Glucose UA Negative Negative 02/25/2021 [facility] 17:44 EDT CENTER LABORATORY SERVICES Bilirubin UA Negative Negative 02/25/2021 [facility] 17:44 EDT CENTER LABORATORY SERVICES Ketones UA Negative Negative 02/25/2021 [facility] 17:44 EDT CENTER LABORATORY SERVICES Specific 1.014 1.001 - 02/25/2021 [facility] [place], Urine 1.035 17:44 EDT CENTER LABORATORY SERVICES Blood UA Negative Negative 02/25/2021 [facility] 17:44 EDT CENTER LABORATORY SERVICES Urobilinogen UA Normal Normal mg/dL 02/25/2021 [facility] 17:44 EDT CENTER LABORATORY SERVICES Nitrite UA Negative Negative 02/25/2021 [facility] 17:44 EDT CENTER LABORATORY SERVICES Leukocyte Negative Negative 02/25/2021 [facility] Esterase UA 17:44 EDT CENTER LABORATORY SERVICES Protein UA Negative Negative 02/25/2021 [facility] 17:44 EDT CENTER LABORATORY SERVICES pH, UA 6.5 4.6 - 8.0 02/25/2021 [facility] 17:44 EDT CENTER LABORATORY SERVICES Urine RBC Count, 0 - 2 0 - 2 02/25/2021 [facility] Auto Cells/HPF 17:44 EDT CENTER LABORATORY SERVICES Urine WBC Count, 0 - 3 0 - 3 02/25/2021 [facility] Auto Cells/HPF 17:44 EDT CENTER LABORATORY SERVICES Urine Squamous None Seen None Seen 02/25/2021 [facility] Count, Auto Cells/HPF 17:44 [facility] LABORATORY SERVICES Urine Hyaline <=10 <=10 02/25/2021 [facility] Cast Count, Auto Casts/LPF 17:44 [facility] LABORATORY SERVICES Urine Bacteria None Seen None Seen 02/25/2021 [facility] Count, Auto Bacteria/HPF 17:44 [facility] LABORATORY SERVICES Specimen Anatomical Collection Method Collection Time Receive d Time (Source) Location / / Volume Laterality Urine URINE SPECIMEN Urine Collect / 02/25/2021 16:30 2020 COLLECTION, CLEAN Unknown EDT 16:52 EDT CATCH / Unknown Narrative [facility] SERVICES - 02/25/2021 17:44 EDT Urine Sediment Analysis results are unre liable on urines that are unrefrigerated for >2 hrs or refrigerated >8 hrs. Milagros Evans MD URINALYSIS ORDERABLES Performing Organization Address City/State/ZIP Code Phon e Number [facility] [address] [place] [address] SERVICES documented in this encounter Visit Diagnoses Diagnosis Polymyalgia rheumatica (HCC-CMS) ([facility]) - Primary Polymyalgia rheumatica Positive [place] (antinuclear [...] tablet added in this encounter Care Teams Mechatronics Technician Relationship Specialty Start Date End Date Juaquin Iniguez MD PCP - General 02/23/21 [address] [place] [address] documented as of this encounter
--- OUTSIDE RECORDS SUMMARY | 2022-05-05 18:47 | XMS_ITS | Encounter Summary ---
:1955 Author Organization [facility] Address [address] [place] [address] Care Team Providers Name Role Phone Unknown, Provider Primary Care Provider Juaquin Iniguez MD Primary Care Provider Reason for Visit Reason Onset Date Comments Appointment Related 01/31/2021 Encounter Details Date Type Department Care Team Description 01/31/2021 Telephone [facility] Milagros Evans Appoint ment Related Rheumatology & MD Amisha Immunology - [address], [address], [address] [place], [place] [address] [place] [address] [phone] (Wo rk) Social History Tobacco Use [...] to email below and updated appt notes Telephone Encounter - Samantha Rondon - 01/31/2021 1028 EDT Patient is calling to ask if we can arrange for her daughter to access her 02/25 appointment via zoom. Patient will still come in person. Patient's daughter, Loly, will try to come in person with patient, but she may not be able to make it. Loly's email address is: [email or web address] Please call patient to inform if we can accommodate and send zoom link to daughter. documented in this encounter Plan of Treatment Upcoming Encounters Date Type Specialty Care Team Description 09/25/2022 Office Visit Rheumatology Milagros Evans MD [address] [facility], [facility], [address] [place], [place] [address] (Wo rk) documented as of this encounter Visit Diagnoses Not on filedocumented in this encounter Care Teams Dog Races Manager Relationship Specialty Start Date End Date Unknown, Provider, PCP - General 09/02/15 02/22/21 Juaquin Iniguez MD PCP - General 02/23/21 [address] [place] [address] documented as of this encounter
--- OUTSIDE RECORDS SUMMARY | 2022-05-05 18:47 | XMS_ITS | Encounter Summary ---
:1955 Author Organization [facility] Address [address] [place] [address] Care Team Providers Name Role Phone Unavailable Primary Care Provider Unavailable Encounter Details Date Type Department Care Team Description 09/26/2002 Results Only [facility] - Gabriel Serra MD conversion [address], [place] [id number] Social History Tobacco Use Types Packs/Day Years Used Date Smoking Tobacco: Never Assessed Sex Assigned at Date Recorded Not on file documented as of this encounter Plan of Treatment Upcoming Encounters Date Type Specialty Care Team Description 09/25/2022 Office Visit Rheumatology Milagros Evans MD [address] [facility], [address] [place], [place] [address] (Wo rk) documented as of this encounter Procedures Procedure Name Priority Date/Time Associated Diagnosis Comme [facility] CYTOPATHOLOGY Routine 09/26/2002 0:00 EDT Results for this procedure are i n the results section . documented in this encounter Results CYTOPATHOLOGY (09/26/2002 0:00 EDT) Component Value Ref Test Analysis Performed At [facility] Pathology CYTOPATHOLOGY REPORT BENJIE Report: [facility] Reports generated via electronic interface contain original data; however they are lacking the format of the original report. Caution should be taken when reading/interpreting unformatte d reports. Name: ? KEYANNA RICE ? Accession #: ? [id number] : ? 1955 (Age: 47) ??F ?Collect Date: ? 09/26/2002 Location: ? [facility] ? Receive Date: ? 09/29/2002 Provider: ?GABRIEL DIOP MD Copy to: ? Specimen/Source: ?ThinPrep Pap Test, Cervix/Endoce rvix Last Menstrual Period: ? 09/17/02 Hormonal/Contraceptive Status: ? Yes Other: ? HPVA - HPV testing requested if ASC-US on the current ThinPr ep Pap test. ? SPECIMEN ADEQUACY ? Satisfactory for Evaluation - transformation zone component present GENERAL CATEGORIZATION ? Negative for Intraepithelial Lesion or Malignancy ? Document reviewed and electronically signed by: ? Zamzam Fraser, SCT(ASCP) ? Report Date: ??10/02/2002 09:11 End of Report Specimen (Source) Anatomical Location Collection Method / Collectio n Time Received Time / Laterality Volume 09/26/2002 09/29/2002 Gabriel Diop MD PATHOLOGY ORDERABLES Performing Organization Address City/State/ZIP Code Phon e Number [facility] [address] [place] [address] SERVICES [facility] [address] [place] [address] documented in this encounter Visit Diagnoses Not on filedocumented in this encounter
--- OUTSIDE RECORDS SUMMARY | 2022-05-05 18:47 | XMS_ITS | Encounter Summary ---
:1955 Author Organization [facility] Address [address] [place] [address] Care Team Providers Name Role Phone Unavailable Primary Care Provider Unavailable Encounter Details Date Type Department Care Team Description 09/28/2003 Results Only [facility] - Gabriel Serra MD conversion [address] [place], [place] [address] Social History Tobacco Use Types Packs/Day Years Used Date Smoking Tobacco: Never Assessed Sex Assigned at Date Recorded Not on file documented as of this encounter Plan of Treatment Upcoming Encounters Date Type Specialty Care Team Description 09/25/2022 Office Visit Rheumatology Milagros Evans MD [address] [facility], [address] [place], [place] [address] (Wo rk) documented as of this encounter Procedures Procedure Name Priority Date/Time Associated Diagnosis Comme nts CYTOPATHOLOGY Routine 09/28/2003 0:00 EDT Results for this procedure are i n the results section . documented in this encounter Results CYTOPATHOLOGY (09/28/2003 0:00 EDT) Component Value Ref Test Analysis Performed At [facility] Pathology CYTOPATHOLOGY REPORT BENJIE Report: [facility] Reports generated via electronic interface contain original data; however they are lacking the format of the original report. Caution should be taken when reading/interpreting unformatte d reports. Name: ? KEYANNA RICE ? Accession #: ? [id number] : ? 1955 (Age: 48) ??F ?Collect Date: ? 09/28/2003 Location: ? [facility] ? Receive Date: ? 09/30/2003 Provider: ?GABRIEL DIOP MD Copy to: ? Specimen/Source: ?ThinPrep Pap Test, Cervix/Endoce rvix Last Menstrual Period: ? 07/05/2003 Other: ? HPVA - HPV testing requested if ASC-US on the current ThinPr ep Pap test. ? SPECIMEN ADEQUACY ? Satisfactory for Evaluation - transformation zone component present GENERAL CATEGORIZATION ? Negative for Intraepithelial Lesion or Malignancy ? Document reviewed and electronically signed by: ? SUMAYA Jimenez(ASCP) ? Report Date: ??10/02/2003 14:43 End of Report Specimen (Source) Anatomical Location Collection Method / Collectio n Time Received Time / Laterality Volume 09/28/2003 09/30/2003 Gabriel Diop MD PATHOLOGY ORDERABLES Performing Organization Address City/State/ZIP Code Phon e Number [facility] [address] [place] [address] SERVICES [facility] [address] [place] [address] documented in this encounter Visit Diagnoses Not on filedocumented in this encounter
--- OUTSIDE RECORDS SUMMARY | 2022-05-05 18:47 | XMS_ITS | Encounter Summary ---
:1955 Author Organization [facility] Address [address] [place] [address] Care Team Providers Name Role Phone Juaquin Iniguez MD Primary Care Provider Reason for Visit Laboratory Services (Routine/Next Available) - New Request Specialty Diagnoses / Procedures Referred By Contact Refer red To Contact Diagnoses PMR (polymyalgia rheumatica) ([place]) ([facility]) Milagros Evans MD Procedures C REACTIVE PROTEIN [address] [facility], [address] [place] [address] Referral ID Status Reason Start Date Expiration Date Visits V isits Requested Authorized [id number] New Request 09/14/2021 1 1 Encounter Details Date Type Department Care Team Description 09/14/2021 Phlebotomy Only [facility] ED Center 2 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 Typographer, Acc PMR (p olymyalgia Phlebotomy Phlebotomy rheumatica) [address] [facility] ([place]) ([facility]) [place] [address] Social History Tobacco Use Types Packs/Day Years [...] Care Team Description 09/25/2022 Office Visit Rheumatology Cristina, Milagros lange MD [address] [facility], [facility], [address] [place], [place] [address] (Wo rk) documented as of this encounter Procedures Procedure Name Priority Date/Time Associated Comments Diagnosis ALDOLASE Routine 09/14/2021 11:54 PMR (polymyalgia Results for this EDT rheumatica) procedure are i n ([facility]) ([facility]) the results section. SED RATE Routine 09/14/2021 11:54 PMR (polymyalgia Results for this EDT rheumatica) procedure are i n ([facility]) ([facility]) the results section. COMPLETE BLOOD COUNT Routine 09/14/2021 11:54 PMR (polymyalgia Results for this AND DIFFERENTIAL EDT rheumatica) procedure a re in ([facility]) ([facility]) the results section. C REACTIVE PROTEIN Routine 09/14/2021 11:54 PMR (polymyalgia R esults for this EDT rheumatica) procedure are i n ([facility]) ([facility]) the results section. CK Routine 09/14/2021 11:54 PMR (polymyalgia Results for this EDT rheumatica) procedure are i n ([facility]) ([facility]) the results section. documented in this encounter Results ALDOLASE (09/14/2021 11:54 EDT) athologist Signature Aldolase, S 5.1 <7.7 U/L 09/15/2021 [facility] 15:31 EDT LABORATORIES Comment: Test Performed by: [facility] [place] [address] Camera Storage Clerk: Gabriel Hannon M.D. Ph. D.; CLIA# [id number] Specimen Anatomical Collection Method / Collection Time Recei ashlee Time (Source) Location / Volume Laterality Blood VENOUS BLOOD / Venipuncture / 09/14/2021 11:54 022 Unknown Unknown EDT 12:24 EDT Milagros Evans MD CHEMISTRY & BLOOD GAS ORDERA BLES Performing Organization Address City/State/ZIP Code Phon e Number [facility] [address] [place] [address] CK (09/14/2021 11:54 EDT) athologist Signature CK 62 30 - 135 09/14/2021 [facility] 13:26 EDT CENTER LABORATORY SERVICES Specimen Anatomical Collection Method / Collection Time Recei ashlee Time (Source) Location / Volume Laterality Blood VENOUS BLOOD / Venipuncture / 09/14/2021 11:54 022 Unknown Unknown EDT 12:25 EDT Milagros Evans MD CHEMISTRY & BLOOD GAS ORDERA BLES Performing Organization Address City/State/ZIP Code Phon e Number [facility] [address] [place] [address] SERVICES SED RATE (09/14/2021 11:54 EDT) athologist Signature Sed Rate 2 0 - 30 09/14/2021 [facility] mm/hr 14:40 EDT CENTER LABORATORY SERVICES Specimen Anatomical Collection Method / Collection Time Recei ashlee Time (Source) Location / Volume Laterality Blood VENOUS BLOOD / Venipuncture / 09/14/2021 11:54 022 Unknown Unknown EDT 12:17 EDT Milagros Evans MD HEMATOLOGY & PF4 ORDERABLES Performing Organization Address City/State/ZIP Code Phon e Number [facility] [address] [place] [address] SERVICES C REACTIVE PROTEIN (09/14/2021 11:54 EDT) athologist Signature C-Reactive <7.0 <10.0 mg/L 09/14/2021 [facility] Protein 13:26 EDT CENTER LABORATORY SERVICES Specimen Anatomical Collection Method / Collection Time Recei ashlee Time (Source) Location / Volume Laterality Blood VENOUS BLOOD / Venipuncture / 09/14/2021 11:54 022 Unknown Unknown EDT 12:25 EDT Milagros Evans MD CHEMISTRY & BLOOD GAS ORDERA BLES Performing Organization Address City/State/ZIP Code Phon e Number [facility] [address] [place] [address] SERVICES (ABNORMAL) COMPLETE BLOOD COUNT AND DIFFERENTIAL (09/14/2021 11:54 EDT) [facility] gist Method Time Signature WBC 8.96 4.00 - 09/14/2021 [facility] 12.40 12:29 EDT CENTER K/cmm LABORATORY SERVICES RBC 5.05 (H) 3.86 - 09/14/2021 [facility] 5.04 12:29 EDT CENTER M/cmm LABORATORY SERVICES Hemoglobin 15.2 11.6 - 09/14/2021 [facility] 15.2 12:29 EDT CENTER gm/dL LABORATORY SERVICES HCT 46.3 (H) 34.9 - 09/14/2021 [facility] 44.4 % 12:29 EDT CENTER LABORATORY SERVICES MCV 92 81 - 98 09/14/2021 [facility] fl 12:29 EDT CENTER LABORATORY SERVICES MCH 30.1 26.7 - 09/14/2021 [facility] 33.3 pg 12:29 EDT CENTER LABORATORY SERVICES MCHC 32.8 32.1 - 09/14/2021 [facility] 35.9 12:29 EDT CENTER gm/dL LABORATORY SERVICES RDW-CV 13.2 <14.7 % 09/14/2021 [facility] 12:29 EDT CENTER LABORATORY SERVICES RDW-SD 45.0 <50.4 fl 09/14/2021 [facility] 12:29 EDT CENTER LABORATORY SERVICES PLT 293 141 - 377 09/14/2021 [facility] K/[facility] 12:29 EDT CENTER LABORATORY SERVICES MPV 9.1 (L) 9.5 - 09/14/2021 [facility] 12.7 fl 12:29 EDT CENTER LABORATORY SERVICES Neutrophils 77.5 % 09/14/2021 [facility] 12:29 EDT CENTER LABORATORY SERVICES Lymphocytes 15.1 % 09/14/2021 [facility] 12:29 EDT CENTER LABORATORY SERVICES Monocytes 5.6 % 09/14/2021 [facility] 12:29 EDT CENTER LABORATORY SERVICES Eosinophils 0.8 % 09/14/2021 [facility] 12:29 EDT CENTER LABORATORY SERVICES Basophils 0.6 % 09/14/2021 [facility] 12:29 EDT CENTER LABORATORY SERVICES Immature Grans 0.4 % 09/14/2021 [facility] 12:29 EDT CENTER LABORATORY SERVICES Absolute 6.95 2.20 - 09/14/2021 [facility] Neutrophils 8.85 12:29 EDT CENTER K/cm LABORATORY SERVICES Absolute 1.35 1.09 - 09/14/2021 [facility] Lymphocytes 3.30 12:29 EDT CENTER K/cmm LABORATORY SERVICES Absolute 0.50 0.10 - 09/14/2021 [facility] Monocytes 0.80 12:29 EDT CENTER K/cm LABORATORY SERVICES Absolute 0.07 0.03 - 09/14/2021 [facility] Eosinophils 0.61 12:29 EDT CENTER K/cm LABORATORY SERVICES Absolute 0.05 0.01 - 09/14/2021 [facility] Basophils 0.11 12:29 EDT CENTER K/[facility] LABORATORY SERVICES Absolute 0.04 0.00 - 09/14/2021 [facility] Immature Grans 0.06 12:29 EDT CENTER K/[facility] LABORATORY SERVICES Type of Auto 09/14/2021 [facility] Differential: 12:29 EDT CENTER LABORATORY SERVICES Specimen Anatomical Collection Method / Collection Time Recei ashlee Time (Source) Location / Volume Laterality Blood VENOUS BLOOD / Venipuncture / 09/14/2021 11:54 022 Unknown Unknown EDT 12:17 EDT Milagros Evans MD PACKAGES & DNA PROBE ORDERAB LES Performing Organization Address City/State/ZIP Code Phon e Number [facility] [address] [place] [address] SERVICES documented in this encounter Visit Diagnoses Diagnosis PMR (polymyalgia rheumatica) ([facility] ( [facility]) Polymyalgia rheumatica documented in this encounter Care Teams Certified Juvenile Probation Officer Relationship Specialty Start Date End Date Juaquin Iniguez MD PCP - General 02/23/[address] [place] [address] documented as of this encounter
--- OUTSIDE RECORDS SUMMARY | 2022-05-05 18:47 | XMS_ITS | Encounter Summary ---
:1955 Author Organization [facility] Address [address] [place] [address] Care Team Providers Name Role Phone Unknown, Provider Primary Care Provider Juaquin Iniguez MD Primary Care Provider Encounter Details Date Type Department Care Team Description 10/28/2020 Lab Requisition [facility] Outr Resulting Lab, Pathology & Laboratory Provider [facility] [address] [place], [place] [address] Social History Tobacco Use Types Packs/Day Years Used Date Smoking Tobacco: Never Assessed Sex Assigned at Date Recorded Not on file documented as of this encounter Plan of Treatment Upcoming Encounters Date Type Specialty Care Team Description 09/25/2022 Office Visit Rheumatology Milagros Evans MD [address] [facility], [facility], [address] [place], [place] [address] (Wo rk) documented as of this encounter Procedures Procedure Name Priority Date/Time Associated Diagnosis Comme nts LYME AB Routine 10/28/2020 9:00 EDT Results for this procedure are i n the results section . documented in this encounter Results LYME AB (10/28/2020 9:00 EDT) athologist Signature Lyme Ab Negative Negative 10/29/2020 [facility] MED[facility] 11:13 EDT CENTER LABORATORY SERVICES Comment: New 3rd generation assay in use 11/26/2019 Specimen Anatomical Collection Method Collection Time Receive d Time (Source) Location / / Volume Laterality Blood VENOUS BLOOD / 10/28/2020 9:00 10/28/2020 Unknown EDT 20:44 EDT Provider Outr Resulting Lab IMMUNOLOGY AND SEROLOGY OR DERABLES Performing Organization Address City/State/ZIP Code Phon e Number [facility] [address] [place] [address] SERVICES documented in this encounter Visit Diagnoses Not on filedocumented in this encounter Care Teams Computer Mechanic Relationship Specialty Start Date End Date Unknown, Provider, PCP - General 09/02/15 02/22/21 Juaquin Iniguez MD PCP - General 02/23/21 [address] [place] [address] documented as of this encounter
--- OUTSIDE RECORDS SUMMARY | 2022-05-05 18:47 | XMS_ITS | Encounter Summary ---
:1955 Author Organization [facility] Address [address] [place] [address] Care Team Providers Name Role Phone Juaquin Iniguez MD Primary Care Provider Reason for Visit Reason Onset Date Comments Coordination Of Care 03/01/2021 Encounter Details Date Type Department Care Team Description 03/01/2021 Telephone [facility] Milagros Evans [facility] Rheumatology & MD [facility] - [address] [address] [place], [facility] [place] [address] (Wo rk) Social History Tobacco [...] Office Visit Rheumatology Milagros Evans MD [address] [facility], [facility], [address] [place], [place] [address] (Wo rk) documented as of this encounter Visit Diagnoses Not on filedocumented in this encounter Care Teams Flag Car Driver Relationship Specialty Start Date End Date Juaquin Iniguez MD PCP - General 02/23/21 [address] [place] [address] documented as of this encounter
--- OUTSIDE RECORDS SUMMARY | 2022-05-05 18:47 | XMS_ITS | Encounter Summary ---
:1955 Author Organization [facility] Address [address] [place] [address] Care Team Providers Name Role Phone Unavailable Primary Care Provider Unavailable Encounter Details Date Type Department Care Team Description 09/16/2001 Results Only [facility] - Gabriel Serra MD conversion [address] [place], [place] [address] Social History Tobacco Use Types Packs/Day Years Used Date Smoking Tobacco: Never Assessed Sex Assigned at Date Recorded Not on file documented as of this encounter Plan of Treatment Upcoming Encounters Date Type Specialty Care Team Description 09/25/2022 Office Visit Rheumatology Milagros Evans MD [address] [facility], [facility], [address] [place], [place] [address] (Wo rk) documented as of this encounter Procedures Procedure Name Priority Date/Time Associated Diagnosis Comme [facility] CYTOPATHOLOGY Routine 09/16/2001 0:00 EST Results for this procedure are i n the results section . documented in this encounter Results CYTOPATHOLOGY (09/16/2001 0:00 EST) Component Value Ref Test Analysis Performed At [facility] Pathology CYTOPATHOLOGY REPORT BENJIE Report: [facility] Reports generated via electronic interface contain original data; however they are lacking the format of the original report. Caution should be taken when reading/interpreting unformatte d reports. Name: ? KEYANNA RICE ? Accession #: ? [id number] : ? 1955 (Age: 46) ??F ?Collect Date: ? 09/16/2001 Location: ? [facility] ? Receive Date: ? 09/18/2001 Provider: ?GABRIEL DIOP MD Copy to: ? Specimen/Source: ?ThinPrep Pap Test, Cervix/Endoce rvix Last Menstrual Period: ? 3/?/02 Other: ? Client ID#: [id number] ? SPECIMEN ADEQUACY ? Satisfactory for Evaluation - transformation zone component present GENERAL CATEGORIZATION ? Negative for Intraepithelial Lesion or Malignancy ? Document reviewed and electronically signed by: ? SUMAYA Live(ASCP) ? Report Date: ??09/23/2001 13:36 End of Report Specimen (Source) Anatomical Location Collection Method / Collectio n Time Received Time / Laterality Volume 09/16/2001 09/18/2001 Gabriel Diop MD PATHOLOGY ORDERABLES Performing Organization Address City/State/ZIP Code Phon e Number [facility] [address] [place] [address] SERVICES [facility] [address] [place] [address] documented in this encounter Visit Diagnoses Not on filedocumented in this encounter
--- OUTSIDE RECORDS SUMMARY | 2022-05-05 18:47 | XMS_ITS | Encounter Summary ---
:1955 Author Organization [facility] Address [address] [place] [address] Care Team Providers Name Role Phone Juaquin Iniguez MD Primary Care Provider Reason for Referral Laboratory Services (Routine/Next Available) - New Request Specialty Diagnoses / Procedures Referred By Contact Refer red To Contact Diagnoses PMR (polymyalgia rheumatica) ([facility]) ([facility]) Milagros Evans MD Procedures SED RATE [address] [phone] Referral ID Status Reason Start Date Expiration Date Visits V isits Requested Authorized [id number] New Request 09/14/2021 1 1 Laboratory Services (Routine/Next Available) - New Request Specialty Diagnoses / Procedures Referred By Contact Refer red To Contact Diagnoses PMR (polymyalgia rheumatica) ([facility]) ([facility]) Milagros Evans MD Procedures C REACTIVE PROTEIN [address] [phone] Referral ID Status Reason Start Date Expiration Date Visits V isits Requested Authorized [id number] New Request 09/14/2021 1 1 Reason for Visit Reason Comments Follow-up 1 month fu Joint Pain knees, hips,thighs, elbows, shoulders Encounter Details Date Type Department Care Team Description 09/14/2021 Office Visit [facility] Milagros EvansR ( hankyalgia Rheumatology & MD Amisha rheumatica) Immunology - [address] ([facility] ) ([facility]) [facility] (Primary Dx) [address] [place] [address] Pavilion, [place] [phone] (Wo rk) Social History Tobacco Use Types [...] talk to your doctor first. ?? 2017 [employer] Milagros Evans MD documented in this encounter Ordered Prescriptions Prescription Sig Dispensed Refills Start Date End Date predniSONE (DELTASONE) 1 Take 4 mg daily or 360 Tablet 3 mg tablet as directed (360 for 3 months supply) methotrexate 2.5 mg Take 6 tablets once 24 Tablet 5 022 tablet weekly predniSONE (DELTASONE) 5 Take 1 tablet daily 90 Tablet 3 mg tablet along with the 1 mg tablets. 3 months supply folic acid (FOLVITE) 1 Take 1 Tablet by 90 Tablet 3 022 01/25/2022 mg tablet mouth daily. documented in this encounter Progress Notes Milagros Evans MD - 09/14/2021 1020 EDT [facility] Department of Rheumatology Follow Up Visit [...] pain lasted several hours). This was in [facility]. Did not have a CT chest. Did EKGand echocardiogram. Had what appears to be a ziopatch that was returned 09/08/21. Follows with Dr. Iniguez from Cardiology ([place]). Has a stress test scheduled. Has been [...] ??? Essential hypertension ??? PMR (polymyalgia rheumatica) ([facility]) ([facility]) ??? Vitiligo Past Surgical History: Procedure Laterality [...] ??? Essential hypertension ??? PMR (polymyalgia rheumatica) ([facility]) ([facility]) Assessment Plan: Polymyalgia Rheumatica Increased inflammatory joint [...] talk to your doctor first. ?? 2017 [employer] Milagros Evans MD I spent a total of 30 minutes on the date of this encounter meeting with the patient and reviewing documentation/coordinating care as described in the above note. No procedures were performed at the time of the visit. Milagros Evans MD Department of Rheumatology Attending Physician Pager: [phone] documented in this encounter Plan of Treatment Upcoming Encounters Date Type Specialty Care Team Description 09/25/2022 Office Visit Rheumatology Milagros Evnas MD [address] [place] [address], [facility], [address] [place] [phone] (Wo rk) Scheduled Orders Name Type Priority Associated Diagnoses Order S chedule C REACTIVE PROTEIN Lab Routine PMR (polymyalgia every 1 month for 12 rheumatica) ([facility]) Occurr ences starting ([facility]) 09/14/2021 unti l 09/14/2022, 1 c ompleted SED RATE Lab Routine PMR (polymyalgia every 1 mon th for 12 rheumatica) ([facility]) Occurr ences starting ([facility]) 09/14/2021 unti l 09/14/2022, 1 c ompleted documented as of this encounter Results C REACTIVE PROTEIN (01/25/2022 13:34 EDT) athologist Signature C-Reactive <7.0 <10.0 mg/L 01/25/2022 [facility] Protein 14:56 EDT CENTER LABORATORY SERVICES Specimen Anatomical Collection Method / Collection Time Recei ashlee Time (Source) Location / Volume Laterality Blood VENOUS BLOOD / Venipuncture / 01/25/2022 13:34 022 Unknown Unknown EDT 14:22 EDT Milagros Evans MD CHEMISTRY & BLOOD GAS ORDERA BLES Performing Organization Address City/State/ZIP Code Phon e Number [facility] [address] [place] [address] SERVICES SED RATE (01/25/2022 13:33 EDT) athologist Signature Sed Rate 3 0 - 30 01/25/2022 [facility] mm/hr 14:43 EDT CENTER LAB[facility] SERVICES Specimen Anatomical Collection Method / Collection Time Recei ashlee Time (Source) Location / Volume Laterality Blood VENOUS BLOOD / Venipuncture / 01/25/2022 13:33 022 Unknown Unknown EDT 14:21 EDT Milagros Evans MD HEMATOLOGY & PF4 ORDERABLES Performing Organization Address City/State/ZIP Code Phon e Number [facility] [address] [place] [phone] SERVICES ALDOLASE (09/14/2021 11:54 EDT) athologist Signature Aldolase, S 5.1 <7.7 U/L 09/15/2021 [facility] 15:31 EDT LABORATORIES Comment: Test Performed by: [facility] [address] [place] [address] Prescription Clerk Lenses: Gabriel Hannon M.D. Ph. D.; IA# [id number] Specimen Anatomical Collection Method / Collection Time Recei ashlee Time (Source) Location / Volume Laterality Blood VENOUS BLOOD / Venipuncture / 09/14/2021 11:54 022 Unknown Unknown EDT 12:24 EDT Milagros Evans MD CHEMISTRY & BLOOD GAS ORDERA BLES Performing Organization Address City/State/ZIP Code Phon e Number [address] [phone] CK (09/14/2021 11:54 EDT) athologist Signature CK [...] Organization Address City/State/ZIP Code Phon e Number [facility] [address] [place] [address] SERVICES SED RATE (09/14/2021 11:54 EDT) athologist Signature Sed Rate 2 0 - 30 09/14/2021 [facility] mm/hr 14:40 EDT CENTER LABORATORY SERVICES Specimen Anatomical Collection Method / Collection Time Recei ashlee Time (Source) Location / Volume Laterality Blood VENOUS BLOOD / Venipuncture / 09/14/2021 11:54 022 Unknown Unknown EDT 12:17 EDT Milagros Evans MD HEMATOLOGY & PF4 ORDERABLES Performing Organization Address City/State/ZIP Code Phon e Number [facility] [address] [place] [address] SERVICES C REACTIVE PROTEIN (09/14/2021 11:54 EDT) athologist Signature C-Reactive <7.0 <10.0 mg/L 09/14/2021 [facility] Protein 13:26 EDT CENTER LABORATORY SERVICES Specimen Anatomical Collection Method / Collection Time Recei ashlee Time (Source) Location / Volume Laterality Blood VENOUS BLOOD / Venipuncture / 09/14/2021 11:54 022 Unknown Unknown EDT 12:25 EDT Milagros Evans MD CHEMISTRY & BLOOD GAS ORDERA BLES Performing Organization Address City/State/ZIP Code Phon e Number [facility] CENTER LABORATORY [address] [place] [address] SERVICES (ABNORMAL) COMPLETE BLOOD COUNT AND DIFFERENTIAL (09/14/2021 11:54 EDT) [facility] Method Time Signature WBC 8.96 4.00 - 09/14/2021 [facility] 12.40 12:29 EDT CENTER K/cmm LABORATORY SERVICES RBC 5.05 (H) 3.86 - 09/14/2021 [facility] 5.04 12:29 EDT CENTER M/cmm LABORATORY SERVICES Hemoglobin 15.2 11.6 - 09/14/2021 [facility] 15.2 12:29 EDT CENTER gm/dL LABORATORY SERVICES HCT 46.3 (H) 34.9 - 09/14/2021 [facility] 44.4 % 12:29 EDT CENTER LABORATORY SERVICES MCV 92 81 - 98 09/14/2021 [facility] fl 12:29 EDT CENTER LABORATORY SERVICES MCH 30.1 26.7 - 09/14/2021 [facility] MED[facility] 33.3 pg 12:29 EDT CENTER LABORATORY SERVICES MCHC 32.8 32.1 - 09/14/2021 [facility] 35.9 12:29 EDT CENTER gm/dL LABORATORY SERVICES RDW-CV 13.2 <14.7 % 09/14/2021 [facility] MEDICAL 12:29 EDT CENTER LABORATORY SERVICES RDW-SD 45.0 <50.4 fl 09/14/2021 [facility] MEDICAL 12:29 EDT CENTER LABORATORY SERVICES PLT 293 141 - 377 09/14/2021 [facility] MEDICAL K/cmm 12:29 EDT CENTER LABORATORY SERVICES MPV 9.1 (L) 9.5 - 09/14/2021 [facility] 12.7 fl 12:29 EDT CENTER LABORATORY SERVICES Neutrophils 77.5 % 09/14/2021 [facility] MEDICAL 12:29 EDT CENTER LABORATORY SERVICES Lymphocytes 15.1 % 09/14/2021 [facility] MEDICAL 12:29 EDT CENTER LABORATORY SERVICES Monocytes 5.6 % 09/14/2021 [facility] MEDICAL 12:29 EDT CENTER LABORATORY SERVICES Eosinophils 0.8 % 09/14/2021 [facility] MEDICAL 12:29 EDT CENTER LABORATORY SERVICES Basophils 0.6 % 09/14/2021 [facility] MEDICAL 12:29 EDT CENTER LABORATORY SERVICES Immature Grans 0.4 % 09/14/2021 [facility] MEDICAL 12:29 EDT CENTER LABORATORY SERVICES Absolute 6.95 2.20 - 09/14/2021 [facility] MEDICAL Neutrophils 8.85 12:29 EDT CENTER K/m LABORATORY SERVICES Absolute 1.35 1.09 - 09/14/2021 [facility] MEDICAL Lymphocytes 3.30 12:29 EDT CENTER K/[facility] LABORATORY SERVICES Absolute 0.50 0.10 - 09/14/2021 [facility] MEDICAL Monocytes 0.80 12:29 EDT CENTER K/[facility] LABORATORY SERVICES Absolute 0.07 0.03 - 09/14/2021 [facility] MEDICAL Eosinophils 0.61 12:29 EDT CENTER K/[facility] LABORATORY SERVICES Absolute 0.05 0.01 - 09/14/2021 [facility] MEDICAL Basophils 0.11 12:29 EDT CENTER K/[facility] LABORATORY SERVICES Absolute 0.04 0.00 - 09/14/2021 [facility] MEDICAL Immature Grans 0.06 12:29 EDT CENTER K/[facility] LABORATORY SERVICES Type of Auto 09/14/2021 [facility] MED[facility] Differential: 12:29 EDT CENTER LABORATORY SERVICES Specimen Anatomical Collection Method / Collection Time Recei ashlee Time (Source) Location / Volume Laterality Blood VENOUS BLOOD / Venipuncture / 09/14/2021 11:54 022 Unknown Unknown EDT 12:17 EDT Milagros Evans MD PACKAGES & DNA PROBE ORDERAB LES Performing Organization Address City/State/ZIP Code Phon e Number [facility] CENTER LABORATORY [address] [place] [address] SERVICES documented in this encounter Visit Diagnoses Diagnosis PMR (polymyalgia rheumatica) ([facility]) ( [facility]) - Primary Polymyalgia rheumatica documented in this [...] daily. added in this encounter Care Teams Entertainment Reporter Relationship Specialty Start Date End Date Juaquin Iniguez MD PCP - General 02/23/[address] [place] [address] documented as of this encounter
--- OUTSIDE RECORDS SUMMARY | 2022-05-05 18:47 | XMS_ITS | Encounter Summary ---
:1955 Author Organization [facility] Address [address] [place] [address] Care Team Providers Name Role Phone Juaquin Iniguez MD Primary Care Provider Reason for Visit Laboratory Services (Routine/Next Available) - New Request Specialty Diagnoses / Procedures Referred By Contact Refer red To Contact Diagnoses PMR (polymyalgia rheumatica) ([facility]) ([facility]) Milagros Evans MD Procedures C REACTIVE PROTEIN [address] [facility], [address] [place] [phone] Referral ID Status Reason Start Date Expiration Date Visits V isits Requested Authorized [id number] New Request 09/14/2021 1 1 Encounter Details Date Type Department Care Team Description 01/25/2022 Phlebotomy Only [facility] ED Center 2 Photo Offset Printer, Acc PMR (p olymyalgia rheumatica) ([facility]) ([facility]); Phlebotomy Phlebotomy At risk for side effect of m edication; [address] [place], [place] [address] Social History Tobacco Use Types Packs/Day Years [...] Office Visit Rheumatology Milagros Evans MD [address] [facility], [facility], [address] [place], [place] [address] (Wo rk) documented as of this encounter Procedures Procedure Name Priority Date/Time Associated Comments Diagnosis C REACTIVE PROTEIN Routine 01/25/2022 13:34 PMR (polymyalgia R esults for this EDT rheumatica) procedure are i n ([facility]) ([facility]) the results section. COMPREHENSIVE Routine 01/25/2022 13:34 PMR (polymyalgia Result s for this METABOLIC PANEL (CMP) EDT rheumatica) proced ure are in ([facility]) ([facility]) the results At risk for side section. effect of medication MYOMARKER 3 PLUS Routine 01/25/2022 13:33 PMR (polymyalgia Res ults for this PROFILE EDT rheumatica) procedure are i n ([facility]) ([facility]) the results At risk for side section. effect of medication Rash SED RATE Routine 01/25/2022 13:33 PMR (polymyalgia Results for this EDT rheumatica) procedure are i n ([facility]) ([facility]) the results section. COMPLETE BLOOD COUNT Routine 01/25/2022 13:33 PMR (polymyalgia Results for this AND DIFFERENTIAL EDT rheumatica) procedure a re in ([facility]) ([facility]) the results At risk for side section. effect of medication Rash documented in this encounter Results (ABNORMAL) COMPREHENSIVE METABOLIC PANEL (CMP) (01/25/2022 13:34 EDT) [facility] Method Time Signature Sodium 143 136 - 145 01/25/2022 [facility] mmol/L 14:56 EDT [facility] Potassium 4.5 3.5 - 5.0 01/25/2022 [facility] mmol/L 14:56 [facility]T [facility] Chloride 104 96 - 110 01/25/2022 [facility] mmol/L 14:56 [facility]T [facility] CO2 Total 28 22 - 32 01/25/2022 [facility] mmol/L 14:56 EDT [facility] Glucose 106 (H) 70 - 100 01/25/2022 [facility] mg/dL 14:56 EDT [facility]ENTER [facility] BUN 21 10 - 26 01/25/2022 [facility] mg/dL 14:56 EDT [facility] Creatinine 0.77 0.52 - 01/25/2022 [facility] 1.04 mg/dL 14:56 EDT [facility] SERVICES eGFR 84 >60 01/25/2022 [facility] mL/min/1.7 14:56 EDT CENTER 3m2 LABORATORY SERVICES Total Protein 6.6 6.3 - 8.2 01/25/2022 [facility] g/dL 14:56 EDT [facility] Albumin 4.4 3.4 - 4.9 01/25/2022 [facility] g/dL 14:56 ED [facility] Alkaline 47 38 - 126 01/25/2022 [facility] Phosphatase U/L 14:56 EDT [facility] LAB[facility] AST 25 15 - 46 01/25/2022 [facility] U/L 14:56 EDT [facility] ALT 19 <35 U/L 01/25/2022 [facility] 14:56 EDT [facility] Bilirubin, Total <0.5 <1.4 mg/dL 01/25/2022 [facility] 14:56 EDT [facility] Calcium 9.3 8.5 - 10.5 01/25/2022 [facility] mg/dL 14:56 EDT [facility] Albumin/Globulin 2.0 1.0 - 2.5 01/25/2022 [facility] Ratio 14:56 EDT [facility] Anion Gap 11 5 - 14 01/25/2022 [facility] 14:56 EDT [facility] Specimen Anatomical Collection Method / Collection Time Recei ashlee Time (Source) Location / Volume Laterality Blood VENOUS BLOOD / Venipuncture / 01/25/2022 13:34 022 Unknown Unknown EDT 14:22 EDT Milagros Evans MD CHEMISTRY & BLOOD GAS ORDERA BLES Performing Organization Address City/State/ZIP Code Phon e Number [facility] [address] [place] [address] SERVICES C REACTIVE PROTEIN (01/25/2022 13:34 EDT) P athologist Signature C-Reactive <7.0 <10.0 mg/L 01/25/2022 [facility] Protein 14:56 EDT [facility] Specimen Anatomical Collection Method / Collection Time Recei ashlee Time (Source) Location / Volume Laterality Blood VENOUS BLOOD / Venipuncture / 01/25/2022 13:34 022 Unknown Unknown EDT 14:22 EDT Milagros Evans MD CHEMISTRY & BLOOD GAS ORDERA BLES Performing Organization Address City/State/ZIP Code Phon e Number [facility] [address] [place] [address] SERVICES (ABNORMAL) COMPLETE BLOOD COUNT AND DIFFERENTIAL (01/25/2022 13:33 EDT) Patholo gist Method Time Signature WBC 7.85 4.00 - 01/25/2022 [facility] 12.40 14:33 EDT CENTER K/cmm LABORATORY SERVICES RBC 4.76 3.86 - 01/25/2022 [facility] 5.04 14:33 EDT CENTER M/cm LABORATORY SERVICES Hemoglobin 15.1 11.6 - 01/25/2022 [facility] 15.2 14:33 EDT CENTER gm/dL LABORATORY SERVICES HCT 45.0 (H) 34.9 - 01/25/2022 [facility] 44.4 % 14:33 EDT CENTER LABORATORY SERVICES MCV 95 81 - 98 01/25/2022 [facility] fl 14:33 EDT CENTER LABORATORY SERVICES MCH 31.7 26.7 - 01/25/2022 [facility] 33.3 pg 14:33 EDT CENTER LABORATORY SERVICES MCHC 33.6 32.1 - 01/25/2022 [facility] 35.9 14:33 EDT CENTER gm/dL LABORATORY SERVICES RDW-CV 13.4 <14.7 % 01/25/2022 [facility] 14:33 EDT CENTER LABORATORY SERVICES RDW-SD 46.7 <50.4 fl 01/25/2022 [facility] 14:33 EDT CENTER LABORATORY SERVICES PLT 281 141 - 377 01/25/2022 [facility] K/cmm 14:33 EDT CENTER LABORATORY SERVICES MPV 9.1 (L) 9.5 - 01/25/2022 [facility] 12.7 fl 14:33 EDT CENTER LABORATORY SERVICES Neutrophils 79.4 % 01/25/2022 [facility] 14:33 EDT [facility] LABOR[facility]ORY SERVICES Lymphocytes 15.4 % 01/25/2022 [facility] 14:33 EDT C[facility] LABORATORY SERVICES Monocytes 3.7 % 01/25/2022 [facility] 14:33 EDT [facility] LABOR[facility]ORY SERVICES Eosinophils 0.5 % 01/25/2022 [facility] 14:33 EDT [facility] LABOR[facility]ORY SERVICES Basophils 0.6 % 01/25/2022 [facility] 14:33 EDT [facility] LAB[facility]ORY SERVICES Immature Grans 0.4 % 01/25/2022 [facility] 14:33 EDT [facility] LABORATORY SERVICES Absolute 6.23 2.20 - 01/25/2022 [facility] Neutrophils 8.85 14:33 EDT CENTER K/cmm LABORATORY SERVICES Absolute 1.21 1.09 - 01/25/2022 [facility] Lymphocytes 3.30 14:33 EDT CENTER K/[facility] LABORATORY SERVICES Absolute 0.29 0.10 - 01/25/2022 [facility] Monocytes 0.80 14:33 EDT CENTER K/[facility] LABORATORY SERVICES Absolute 0.04 0.03 - 01/25/2022 [facility] Eosinophils 0.61 14:33 EDT CENTER K/[facility] LABORATORY SERVICES Absolute 0.05 0.01 - 01/25/2022 [facility] Basophils 0.11 14:33 EDT CENTER K/[facility] LABORATORY SERVICES Absolute 0.03 0.00 - 01/25/2022 [facility] Immature Grans 0.06 14:33 EDT CENTER K/[facility] LABORATORY SERVICES Type of Auto 01/25/2022 [facility] Differential: 14:33 EDT CENTER [facility] SERVICES Specimen Anatomical Collection Method / Collection Time Recei ashlee Time (Source) Location / Volume Laterality Blood VENOUS BLOOD / Venipuncture / 01/25/2022 13:33 022 Unknown Unknown EDT 14:21 EDT Milagros Evans MD PACKAGES & DNA PROBE ORDERAB LES Performing Organization Address City/State/ZIP Code Phon e Number [facility] CENTER LABORATORY [address] [place] [address] SERVICES MYOMARKER 3 PLUS PROFILE (01/25/2022 13:33 EDT) [facility] Method Time Signature Anti-Glenda-1 Ab <20 <20 Units 02/12/2022 [facility] 19:06 EDT LABORATORIES Anti PL-7 Negative Negative 02/12/2022 [facility] 19:06 EDT LABORATORIES Comment: This test was developed and its performa nce characteristics determined by [facility]. It has not been c leared or approved by the Food and Drug Administra tion. Anti-PL-12 Ab Negative Negative 02/12/2022 19:06 EDT [facility] Comment: This test was developed and its performa nce characteristics determined by [facility]. It has not been c leared or approved by the Food and Drug Administra tion. Anti-EJ Ab Negative Negative 02/12/2022 19:06 EDT [facility] Comment: This test was developed and its performa nce characteristics determined by [facility]. It has not been c leared or approved by the Food and Drug Administra tion. Anti-OJ Ab Negative Negative 02/12/2022 19:06 EDT [facility] Comment: This test was developed and its performa nce characteristics determined by [facility]. It has not been c leared or approved by the Food and Drug Administra tion. Anti-SRP Ab Negative Negative 02/12/2022 19:06 EDT [facility] Comment: This test was developed and its performa nce characteristics determined by [facility]. It has not been c leared or approved by the Food and Drug Administra tion. Ghjs-Mt-3-Ab Negative Negative 02/12/2022 19:06 EDT [facility] Comment: This test was developed and its performa nce characteristics determined by [facility]. It has not been c leared or approved by the Food and Drug Administra tion. Tivq-UOX-5ueupk Ab <20 <20 Units 02/12/2022 19:06 EDT [facility] Comment: This test was developed and its performa nce characteristics determined by [facility]. It has not been c leared or approved by the Food and Drug Administra tion. Anti-MDA-5 Ab <20 <20 Units 02/12/2022 19:06 EDT [facility] (CADM-140) Comment: This test was developed and its performa nce characteristics determined by [facility]. It has not been c leared or approved by the Food and Drug Administra tion. Anti-NXP-2 (P140) Ab <20 <20 Units 02/12/2022 19:0 6 EDT [facility] Comment: This test was developed and its performa nce characteristics determined by [facility]. It has not been c leared or approved by the Food and Drug Administra tion. Anti-SAE1 Ab, IgG <20 <20 Units 02/12/2022 19:06 EDT [facility] Comment: This test was developed and its performa nce characteristics determined by [facility]. It has not been c leared or approved by the Food and Drug Administra tion. Anti-PM/Scl-100 Ab <20 <20 Units 02/12/2022 19:06 [facility] Comment: This test was developed and its performa nce characteristics determined by [facility]. It has not been c leared or approved by the Food and Drug Administra tion. Anti-Ku Ab Negative Negative 02/12/2022 19:06 EDT [facility] Comment: This test was developed and its performa nce characteristics determined by [facility]. It has not been c leared or approved by the Food and Drug Administra tion. Anti-SS-A 52kD Ab, IgG <20 <20 Units 02/12/2022 19 :06 [facility] Comment: This test was developed and its performa nce characteristics determined by [facility]. It has not been c leared or approved by the Food and Drug Administra tion. Anti-U1 RN CVICU Ab <20 <20 Units 02/12/2022 19:06 EDT [facility] Anti-U2 RN CVICU Ab Negative Negative 02/12/2022 19:06 T [facility] Comment: This test was developed and its performa nce characteristics determined by [facility]. It has not been c leared or approved by the Food and Drug Administra tion. Anti-U3 RN CVICU Negative Negative 02/12/2022 19:06 [facility] (Fibrillarin) T LABORATORIES Comment: This test was developed and its performa nce characteristics determined by [facility]. It has not been c leared or approved by the Food and Drug Administra tion. ?Interpretation for Anti-Glenda-1, Anti -TIF-1gamma, ?Anti-MDA-5, Anti-NXP-2, Anti-SAE1, Anti-PM/Scl-100, ?Anti-SS-A 52 kD, Anti-U1 RN CVICU: ?Negative: ?<20 ?Weak Positive: ? 20 - 39 ?Moderate Positive: ? 40 - 80 ?Strong Positive: ? >80 ?. Test Performed by: [facility] [address] [place] [address] Specimen Anatomical Collection Method / Collection Time Recei ashlee Time (Source) Location / Volume Laterality Blood VENOUS BLOOD / Venipuncture / 01/25/2022 13:33 022 Unknown Unknown EDT 14:15 EDT Milagros Evans MD CHEMISTRY & BLOOD GAS ORDERA BLES Performing Organization Address City/State/ZIP Code Phon e Number [facility] [address] [place] [address] SED RATE (01/25/2022 13:33 EDT) P athologist Signature Sed Rate 3 0 - 30 01/25/2022 [facility] mm/hr 14:43 EDT [facility] Specimen Anatomical Collection Method / Collection Time Recei ashlee Time (Source) Location / Volume Laterality Blood VENOUS BLOOD / Venipuncture / 01/25/2022 13:33 022 Unknown Unknown EDT 14:21 EDT Milagros Evans MD HEMATOLOGY & PF4 ORDERABLES Performing Organization Address City/State/ZIP Code Phon e Number [facility]ENTER [facility]OR[facility]ORY [address] [place] [address] SERVICES documented in this encounter Visit Diagnoses Diagnosis PMR (polymyalgia rheumatica) ([facility]) ( [facility]) Polymyalgia rheumatica At risk for side effect of medication Rash Rash and other nonspecific skin eruption documented in this encounter Care Teams Fire Equipment Inspector Helper Relationship Specialty Start Date End Date Juaquin Iniguez MD PCP - General 02/23/[address] [place] [address] documented as of this encounter
--- OUTSIDE RECORDS SUMMARY | 2022-05-05 18:47 | XMS_ITS | Encounter Summary ---
:1955 Author Organization [facility] Address [address] [place] [address] Care Team Providers Name Role Phone Unavailable Primary Care Provider Unavailable Encounter Details Date Type Department Care Team Description 09/15/1999 Results Only [facility] - Gabriel Serra MD conversion [address] [place], [place] [address] Social History Tobacco Use Types Packs/Day Years Used Date Smoking Tobacco: Never Assessed Sex Assigned at Date Recorded Not on file documented as of this encounter Plan of Treatment Upcoming Encounters Date Type Specialty Care Team Description 09/25/2022 Office Visit Rheumatology Milagros Evans MD [address] [facility], [facility], [address] [place], [place] [address] (Wo rk) documented as of this encounter Procedures Procedure Name Priority Date/Time Associated Diagnosis Comme [facility] CYTOPATHOLOGY Routine 09/15/1999 12:32 EST Result s for this procedure are i n the results section . documented in this encounter Results CYTOPATHOLOGY (09/15/1999 12:32 EST) Component Value Ref Test Analysis Performed At [facility] Pathology CYTOPATHOLOGY REPORT BENJIE Report: [facility] Reports generated via electronic interface contain original data; however they are lacking the format of the original report. Caution should be taken when reading/interpreting unformatte d reports. Name: ? KEYANNA RICE ? Accession #: ? [id number] : ? 1955 (Age: 44) ??F ?Collect Date: ? 09/15/1999 Location: ?Receive Date: ? 0 09/15/1999 Provider: ?GABRIEL DIOP MD Copy to: ?GABRIEL DIOP MD ? Specimen/Source: ?Pap Smear (One Slide) Last Menstrual Period: ? GYNECOLOGIC ??CYTOPATHOLOGY ??RE PORT Name: MIKO,KEYANNA ?[facility] M RN: [id number] : 1955 ?? 44Y F ?Client I D: [id number] SS#: ? Clinician: Misael DIOP MD Location: [facility] ??Copy to: ?? Specimen: ?Pap Smear (One Slide) ? Source: Cervix/Endocervix ?Collected: 09/13/99 ? Received: 09/15/1999 ?LMP: 09/03/99 ? Hormone Therapy: No ? : No ? Radiation Therapy: No ?? Post : No ?Chemotherapy: No ?IUD: Yes ?Prev Abnormal Pap: No ?? Clinical Hx: ?(Blank perkins indicate information not provided on req uisition) SPECIMEN ADEQUACY: ? Satisfactory For Evaluation ?? GENERAL CATEGORIZATION: ? WITHIN NORMAL LIMITS ? Reviewed And Electronically Signed By: ? Beatrice Hayward , CT(ASCP) ? Report Date: ?? 0 09/21/1999 [employer] Archived Tests - Final Diagnosis Text Field: Clinical History : ? Document reviewed and electronically signed by: ? Conversion ? Report Date: ??09/21/1999 00:00 End of Report Specimen Anatomical Collection Method Collection Time Receive d Time (Source) Location / / Volume Laterality 09/15/1999 12:32 09/15/1999 EST 12:33 EST Gabriel Diop MD PATHOLOGY ORDERABLES Performing Organization Address City/State/ZIP Code Phon e Number [facility] [address] [place] [address] SERVICES [facility] [address] [place] [address] documented in this encounter Visit Diagnoses Not on filedocumented in this encounter
--- OUTSIDE RECORDS SUMMARY | 2022-05-05 18:47 | XMS_ITS | Encounter Summary ---
:1955 Author Organization [facility] Address [address] [place] [address] Care Team Providers Name Role Phone Unknown, Provider Primary Care Provider Reason for Visit Reason Onset Date Comments Appointment Related 01/31/2021 Results 01/31/2021 Encounter Details Date Type Department Care Team Description 01/31/2021 Telephone [facility] Milagros Evans Appoint ment Related; Rheumatology & MD Amisha Results Immunology - Main [address] [place] [address] John, [place] [phone] (Wo rk) Social History Tobacco Use Types [...] Office Visit Rheumatology Milagros Evans MD [address] [facility], [facility] John, [address] [place], [place] [address] (Wo rk) documented as of this encounter Visit Diagnoses Not on filedocumented in this encounter Care Teams Pet Feeder Relationship Specialty Start Date End Date Unknown, Provider, PCP - General 09/02/15 02/22/21 documented as of this encounter
--- OUTSIDE RECORDS SUMMARY | 2022-05-05 18:47 | XMS_ITS | Encounter Summary ---
:1955 Author Organization [facility] Address [address] [place] [address] Care Team Providers Name Role Phone Juaquin Iniguez MD Primary Care Provider Encounter Details Date Type Department Care Team Description 03/23/2021 Phlebotomy Only [facility] ED Center 2 [address] Stringer, Acc PMR (p olymyalgia Phlebotomy Phlebotomy rheumatica) [address] [facility] ([facility]) [place], [place] [id number] Social History Tobacco Use Types Packs/Day Years [...] Rheumatology Milagros Evans MD [address] [facility], [facility], [address] [place], [place] [address] (Wo rk) documented as of this encounter Procedures Procedure Name Priority Date/Time Associated Diagnosis Comme nts SED RATE Routine 03/23/2021 13:46 PMR (polymyalgia Results for this EDT rheumatica) procedure are i n ([facility] ([facility]) the results section. C REACTIVE PROTEIN Routine 03/23/2021 13:46 PMR (polymyalgia R esults for this EDT rheumatica) procedure are i n ([facility] ([facility]) the results section. documented in this encounter Results SED. RATE:WESTERGREN (03/23/2021 13:46 EDT) athologist Signature Sed Rate 1 0 - 30 03/23/2021 [facility] mm/hr 14:13 EDT CENTER LAB[facility] SERVICES Specimen Anatomical Collection Method / Collection Time Recei ashlee Time (Source) Location / Volume Laterality Blood VENOUS BLOOD / Venipuncture / 03/23/2021 13:46 021 Unknown Unknown EDT 14:06 EDT Milagros Evans MD HEMATOLOGY & PF4 ORDERABLES Performing Organization Address City/[facility]/ZIP Code Phon e Number [facility] [address] [place] [address] SERVICES C REACTIVE PROTEIN (03/23/2021 13:46 EDT) athologist Signature C-Reactive <7.0 <10.0 mg/L 03/23/2021 [facility] Protein 14:41 EDT CENTER LAB[facility] SERVICES Specimen Anatomical Collection Method / Collection Time Recei ashlee Time (Source) Location / Volume Laterality Blood VENOUS BLOOD / Venipuncture / 03/23/2021 13:46 021 Unknown Unknown EDT 14:07 EDT Milagros Evans MD CHEMISTRY & BLOOD GAS ORDERA BLES Performing Organization Address City/State/ZIP Code Phon e Number [facility] [address] [place] [address] SERVICES documented in this encounter Visit Diagnoses Diagnosis PMR (polymyalgia rheumatica) ([facility] ( [facility]) Polymyalgia rheumatica documented in this encounter Care Teams Setter Out Relationship Specialty Start Date End Date Juaquin Iniguez MD PCP - General 02/23/21 [address] [place] [address] documented as of this encounter
--- OUTSIDE RECORDS SUMMARY | 2022-05-05 18:47 | XMS_ITS | Encounter Summary ---
:1955 Author Organization [facility] Address [address] [place] [address] Care Team Providers Name Role Phone Juaquin [...] Type Department Care Team Description 08/12/2021 Telemedicine [facility] Milagros Evans PMR (po lymyalgia Rheumatology & MD Amisha rheumatica) Immunology - [address] ([facility] ) ([facility]) [address] (Primary Dx) [address] [place], [place] [id number] [place] [address], [place] [phone] (Wo rk) Social History Tobacco Use Types [...] Home Patient location state: Visit Location State: [place] The location of the provider: Office Provider location state: Visit Location State: [place] The following people and their roles were [...] 11. Had her blood work 06/2021 at [facility] Had her DXA scan at [facility] (12/05/2020) RAPID3 Summary Functional Status: Pain Tolerance: Global Estimate: Score: Interpretation: RAPID3 SCORES AND INTERPRETATION 03/23/2021 Functional Status 0 Pain Tolerance 1 Global Estimate 2 RAPID3 3 Interpretation Near Remission ALLERGIES: Patient has no known allergies. Past Medical History: Diagnosis Date ??? Essential hypertension ??? PMR (polymyalgia rheumatica) ([facility]) ([facility]) ??? Vitiligo Past Surgical History: Procedure Laterality [...] 16.4 Sm ([place]) Antibody <20.0 Units 2.7 JOINT SEALER Antibody <20.0 Units 4.2 SSA Antibody <20.0 [...] 09/25/2022 Office Visit Rheumatology Milagros Evans MD [address] [place] [address], [facility], [facility] [address] [place], [place] [phone] (Wo rk) documented as of this encounter Visit Diagnoses Diagnosis PMR (polymyalgia rheumatica) ([facility]) ( [facility]) - Primary Polymyalgia rheumatica documented in this encounter Discontinued Medications Medication Sig Discontinue Reason Start Date End Date hydroCHLOROthiazide every 24 hours. 08/12 (HYDRODIURIL) 25 mg tablet documented as of this encounter Care Teams Palaeontologist Relationship Specialty Start Date End Date Juaquin Iniguez MD PCP - General 02/23/[address] [place] [place] [address] documented as of this encounter
--- OUTSIDE RECORDS SUMMARY | 2022-05-05 18:47 | XMS_ITS | Encounter Summary ---
:1955 Author Organization [facility] Address [address] [place] [address] Care Team Providers Name Role Phone Unavailable Primary Care Provider Unavailable Encounter Details Date Type Department Care Team Description 08/11/2010 Results Only [facility] Chris Diop am, MD [facility] [address] [place], [place] [id number] Social History Tobacco Use Types Packs/Day Years Used Date Smoking Tobacco: Never Assessed Sex Assigned at Date Recorded Not on file documented as of this encounter Plan of Treatment Upcoming Encounters Date Type Specialty Care Team Description 09/25/2022 Office Visit Rheumatology Milagros Evans MD [address] [facility], [facility], [address] [place], [place] [phone] (Wo rk) documented as of this encounter Procedures Procedure Name Priority Date/Time Associated Diagnosis Comme [facility] CYTOPATHOLOGY Routine 08/11/2010 0:00 EST Results for this procedure are i n the results section . documented in this encounter Results CYTOPATHOLOGY (08/11/2010 0:00 EST) Component Value Ref Test Analysis Performed At [facility] Pathology CYTOPATHOLOGY REPORT ? [facility] Report: ? [facility] Reports generated via electr onic interface contain original data; ? however they are lacking the format of the original report. ? Caution should be taken when reading/interpreting unformatted reports. ? Name: ? KURZEJ, KEYANNA ? Accession #: ? [id number] ? : ? 1955 (Age: 55) ??F ?Collect Date: ? 08/11/2010 ? Location: ? [facility] ? R eceive Date: ? 08/12/2010 ? Provider: GABRIEL B DIOP MD ? Copy to: ? [...] diagnosis. ? End of Report ? Specimen (Source) Anatomical Location Collection Method / Collectio n Time Received Time / Laterality Volume 08/11/2010 08/12/2010 Gabriel Diop MD PATHOLOGY ORDERABLES Performing Organization Address City/State/ZIP Code Phon e Number [facility] [address] [place] [address] SERVICES [facility] [address] [place] [address] documented in this encounter Visit Diagnoses Not on filedocumented in this encounter
--- OUTSIDE RECORDS SUMMARY | 2022-05-05 18:47 | XMS_ITS | Encounter Summary ---
:1955 Author Organization [facility] Address [address] [place] [address] Care Team Providers Name Role Phone Unavailable Primary Care Provider Unavailable Encounter Details Date Type Department Care Team Description 10/23/2006 Results Only [facility] - Gabriel Serra MD conversion [address] [place], [place] [phone] Social History Tobacco Use Types Packs/Day Years Used Date Smoking Tobacco: Never Assessed Sex Assigned at Date Recorded Not on file documented as of this encounter Plan of Treatment Upcoming Encounters Date Type Specialty Care Team Description 09/25/2022 Office Visit Rheumatology Milagros Evans MD [address] [facility], [address] [place], [place] [phone] (Wo rk) documented as [...] PAPILLOMA VIRUS DNA TEST (10/23/2006 10:20 EDT) [facility] Method Time Signature Specimen Cervix, [facility] Description ThinPrep [facility] vial Result Negative for [facility] HPV types [facility] 16, 18, 31, 33, 35, 39, 45, 51, 52, 56, 58, 59, and 68. Report Status Final [place] [id number] [facility] Specimen Anatomical Collection Method Collection Time Receive d Time (Source) Location / / Volume Laterality 10/23/2006 10:20 10/30/2006 EDT 10:20 EDT Gabriel Diop MD MICROBIOLOGY - GENERAL ORDER [place] Performing Organization Address City/State/ZIP Code Phon e Number [facility] [address] [place] [phone] SERVICES [facility] [address] [place] [address] CYTOPATHOLOGY (10/23/2006 0:00 EDT) Component Value Ref Test Analysis Performed At [facility] Range Method Time Signature Pathology CYTOPATHOLOGY REPORT [facility] Report: [facility] Reports generated via electronic interface contain original data; however they are lacking the format of the original report. Caution should be taken when reading/interpreting unformatte d reports. Name: ? KEYANNA RICE ? Accession #: ? [id number] : ? 1955 (Age: 51) ??F ?Collect Date: ? 10/23/2006 Location: ? [facility] ? Receive Date: ? 10/25/2006 Provider: ?GABRIEL DIOP MD Copy to: ? Specimen/Source: ? ThinPrep Pap Test, Cervix/Endocervix, processed on 27 bards ThinPrep Imaging System, with manual evaluation Last Menstrual Period: ? 04/18/04 Other: ? Additional clinical information: Previous paps wnl HPVDX - HPV testing requested regardless of diag nosis on current ThinPrep Pap test. ? SPECIMEN ADEQUACY ? Satisfactory for Evaluation - transformation zone component present - scant squamous epithelial component secondary to excessive inflammation GENERAL CATEGORIZATION ? Negative for Intraepithelial Lesion or Malignancy ? Document reviewed and electronically signed by: ? SUMAYA Jimenez(ASCP) ? Report Date: ??10/29/2006 10:07 End of Report Specimen (Source) Anatomical Location Collection Method / Collectio n Time Received Time / Laterality Volume 10/23/2006 10/25/2006 Gabriel Diop MD PATHOLOGY ORDERABLES Performing Organization Address City/State/ZIP Code Phon e Number [facility] [address] [place] [address] SERVICES [facility] [address] [place] [address] documented in this encounter Visit Diagnoses Not on filedocumented in this encounter
--- OUTSIDE RECORDS SUMMARY | 2022-05-05 18:47 | XMS_ITS | Encounter Summary ---
:1955 Author Organization [facility] Address [address] [place] [address] Care Team Providers Name Role Phone Juaquin Iniguez MD Primary Care Provider Encounter Details Date Type Department Care Team Description 01/03/2022 Orders Only [facility] Milagros Evans, Rheumatology & Immunology MD - [address] [address] [facility], [place] [phone] (Wo rk) Social History Tobacco Use Types [...] making decisions? documented as of this encounter Ordered Prescriptions Prescription Sig Dispensed Refills Start Date End Date nystatin (MYCOSTATIN) Swish and swallow, 5 140 mL 0 12/16 100,000 unit/mL ml, 4 times daily. suspension leucovorin (WELLCOVORIN) Take 1 tablet the day 12 Tablet 3 01/03/2022 5 mg tablet after methotrexate documented in this encounter Plan of Treatment Upcoming Encounters Date Type Specialty Care Team Description 09/25/2022 Office Visit Rheumatology Milagros Evans MD [address] [facility], [facility], [address] [place], [place] [phone] (Wo rk) documented as of this encounter Visit Diagnoses Not on filedocumented in this encounter Care Teams Research Editor Relationship Specialty Start Date End Date Juaquin Iniguez MD PCP - General 02/23/21 [address] [place] [address] documented as of this encounter
--- OUTSIDE RECORDS SUMMARY | 2022-05-05 18:47 | XMS_ITS | Encounter Summary ---
:1955 Author Organization [facility] Address [address] [place] [address] Care Team Providers Name Role Phone Juauqin Iniguez MD Primary Care Provider Reason for Visit Reason Onset Date Comments Coordination Of Care 03/02/2021 Encounter Details Date Type Department Care Team Description 03/02/2021 Telephone [facility] Milagros Evans [facility] Rheumatology & MD Amisha Immunology - [address] [address] [place], [place] [address] (Wo rk) Social History Tobacco [...] Office Visit Rheumatology Milagros Evans MD [address] [facility], [address] [place], [place] [phone] (Wo rk) documented as of this encounter Visit Diagnoses Not on filedocumented in this encounter Care Teams Hydrodynamics Teacher Relationship Specialty Start Date End Date Juaquin Iniguez MD PCP - General 02/23/21 [address] [place] [address] documented as of this encounter
--- OUTSIDE RECORDS SUMMARY | 2022-05-05 18:47 | XMS_ITS | Encounter Summary ---
:1955 Author Organization [facility] Address [address] [place] [address] Care Team Providers Name Role Phone Juaquin Iniguez MD Primary Care Provider Reason for Referral Laboratory Services (Routine/Next Available) - New Request Specialty Diagnoses / Procedures Referred By Contact Refer red To Contact Diagnoses PMR (polymyalgia rheumatica) ([facility]) (HCC) At risk for side effect of medication Rash Milagros Evans MD Procedures COMPLETE BLOOD COUNT AND DIFFERENTIAL [address] [phone] Referral ID Status Reason Start Date Expiration Date Visits V isits Requested Authorized [id number] New Request 01/25/2022 1 1 Laboratory Services (Routine/Next Available) - New Request Specialty Diagnoses / Procedures Referred By Contact Refer red To Contact Diagnoses PMR (polymyalgia rheumatica) ([facility]) (HCC) At risk for side effect of medication Milagros Evans MD Procedures COMPREHENSIVE METABOLIC PANEL (CMP) [address] [phone] Referral ID Status Reason Start Date Expiration Date Visits V isits Requested Authorized [id number] New Request 01/25/2022 1 1 Reason for Visit Reason Comments Follow-up Encounter Details Date Type Department Care Team Description 01/25/2022 Office Visit [facility] Milagros Evans PMR (po lymyalgia rheumatica) ([facility]) ([facility]) (Primary Dx); Rheumatology & MD Amisha At risk for side effect of medication; Immunology - [facility] [address] [place] [address] Pavilion, [place] [id number] (Wo rk) Social History Tobacco Use Types Packs/Day Years Used Date Smoking Tobacco: Never Smokeless Tobacco: Never Sex Assigned at Date Recorded Not on file documented as of this encounter Last Filed Vital Signs Vital Sign Reading Time Taken Comments Blood Pressure 148/70 01/25/2022 1206 EDT Pulse 58 01/25/2022 1206 EDT Temperature - - Respiratory Rate - - Oxygen Saturation - - Inhaled Oxygen Concentration - - Weight 57.6 kg (127 lb) 01/25/2022 1206 EDT Height 160 cm (5' 2.99) 01/25/2022 1206 EDT Body Mass Index 22.5 01/25/2022 1206 EDT documented in this encounter Functional Status [...] Patient Instructions Patient InstructionsMilagros Evans MD - 01/25/2022 11:40 EDT Labs every 1 to 2 months. Please restart methotrexate 6 tablets weekly, plus folic acid 2 tablets daily daily, plus the leucovorin 1 tablet the day after methotrexate. Taper prednisone by 1 mg every 1 month until down to 0 Milagros Evans MD documented in this encounter Ordered Prescriptions Prescription Sig Dispensed Refills Start Date End Date folic acid (FOLVITE) 1 mg Take 2 Tablets by 180 Tablet 3 03/2022 tablet mouth daily. documented in this encounter Progress Notes Milagros Evans MD - 01/25/2022 1140 EDT [facility] Department of Rheumatology Follow Up Visit PCP Juaquin Iniguez 01/28/2022 History of Present Illness: Estephania Rice is a 66 y.o. female with past medical history of vitiligo, hypertension, was referred to clinic due to 5 months of diffuse myalgia and arthralgia (mostly proximal), morning stiffnessand fatigue. Initially assessed 02/25/21. ?? During the our initial visit, she reported?that two days after her first dose of COVID-19 Modernavaccine (09/14/20) she noticed??migratory joint??pain over elbows, shoulders, knees. Pain was mild. She had ongoing headaches (occipital), but even before the vaccine (08/28/20). She then followed up with her PCP 09/17/20. During this time, ??Pain continued to escalate, to the point that she could not roll??over??in bed, dress herself or comb her hair.??Her second dose was 10/12/20. Following her second Moderna vaccine,??had??fevers, fell down the stairs. She developed worsening [...] process identified. Started prednisone at 20 mg daily.?? TODAY: Developed stomatitis and/or oral candidiasis since 12/2021. She developed burning and white coating. She was treated with nystatin. She held methotrexate for the past 2 weeks. Did not take leucovorin asshe had already stopped MTX. She has been down to prednisone 5 mg daily for the past 1 month. Denies shoulder/hip pain, stiffness. Denies headaches, jaw pain, scalp sensitivity. Review of Systems: I have reviewed the systems reviewed by the nurse Past Medical History: Diagnosis Date ??? Essential hypertension ??? PMR (polymyalgia rheumatica) (HCC-CMS) (HCC) ??? Vitiligo Past Surgical History: Procedure Laterality [...] Take 1,000 Units by mouth daily. ??? folic acid (FOLVITE) 1 mg tablet Take 2 Tablets by mouth daily. ??? ibuprofen (MOTRIN) 800 mg tablet Take 800 mg by mouth every 6 hours as needed for Pain. ??? leucovorin (WELLCOVORIN) 5 mg tablet Take 1 tablet the day after methotrexate (Patient not taking: Reported on 01/25/2022) ??? methotrexate 2.5 mg tablet Take 6 tablets once weekly (Patient not taking: Reported on 01/25/2022) ??? metoprolol SUCCinate (TOPROL-XL) 25 mg tablet Take 50 mg by mouth daily. ??? nystatin (MYCOSTATIN) 100,000 unit/mL suspension Swish and swallow, 5 ml, 4 times daily. (Patient not taking: Reported on 01/25/2022) ??? pantoprazole (PROTONIX) 40 mg tablet TAKE ONE TABLET BY MOUTH EVERY DAY FOR 42 DAYS ??? predniSONE (DELTASONE) 1 mg tablet Take 4 mg daily or as directed (360 for 3 months supply) (Patient not taking: Reported on 01/25/2022) ??? predniSONE (DELTASONE) 5 mg tablet Take 1 tablet daily along with the 1 mg tablets. 3 months supply Physical exam: BP (!) 148/70 (BP Cuff Location: Right arm, BP Patient Position: Sitting, BP Cuff Sizes: Adult, regular) Pulse 58 Ht 160 cm (62.99) Wt 57.6 kg (127 lb) LMP (LMP Unknown) BMI 22.50 kg/m?? HEENT: moist oral mucosa, no ulcers [...] testing: Component Latest Ref Rng & Units 01/25/2022 WBC 4.00 - 12.40 K/cmm 7.85 RBC 3.86 - 5.04 M/cmm 4.76 Hemoglobin 11.6 - 15.2 gm/dL 15.1 HCT 34.9 - 44.4 % 45.0 (H) MCV 81 - 98 fl 95 MCH 26.7 - 33.3 pg 31.7 MCHC 32.1 - 35.9 gm/dL 33.6 RDW-CV <14.7 % 13.4 RDW-SD <50.4 fl 46.7 PLT 141 - 377 K/cmm 281 MPV 9.5 - 12.7 fl 9.1 (L) Neutrophils % 79.4 Lymphocytes % 15.4 Monocytes % 3.7 Eosinophils % 0.5 Basophils % 0.6 Immature Grans % 0.4 ABS Neutrophils 2.20 - 8.85 K/cmm 6.23 ABS Lymphs 1.09 - 3.30 K/cmm 1.21 ABS Monocytes 0.10 - 0.80 K/cmm 0.29 ABS Eosinophils 0.03 - 0.61 K/cmm 0.04 ABS Basophils 0.01 - 0.11 K/cmm 0.05 ABS Immature Grans 0.00 - 0.06 K/cmm 0.03 Type of Diff: Auto Sodium 136 - 145 mmol/L 143 Potassium 3.5 - 5.0 mmol/L 4.5 Chloride 96 - 110 mmol/L 104 CO2 22 - 32 mmol/L 28 Glucose, Serum 70 - 100 mg/dL 106 (H) BUN 10 - 26 mg/dL 21 Creatinine 0.52 - 1.04 mg/dL 0.77 GFR, Calculated >60 mL/min/1.73m2 84 Total Protein 6.3 - 8.2 g/dL 6.6 Albumin 3.4 - 4.9 g/dL 4.4 Total Alkaline Phosphatase 38 - 126 U/L 47 AST 15 - 46 U/L 25 ALT <35 U/L 19 Bilirubin, Total <1.4 mg/dL <0.5 Calcium 8.5 - 10.5 mg/dL 9.3 ALBUMIN/GLOBULIN RATIO - PMC 1.0 - 2.5 2.0 Anion Gap 5 - 14 11 C-Reactive Protein <10.0 mg/L <7.0 Sed. Rate Westergren 0 - 30 mm/hr 3 Imaging: None ordered today RAPID3 SCORES AND INTERPRETATION 03/23/2021 09/14/2021 01/25/2022 Functional Status 0 2.7 0 Pain Tolerance 1 4.5 1.5 Global Estimate 2 5 1 RAPID3 3 12.2 2.5 Interpretation Near Remission High Near Remission Problem List: Patient Active Problem List Diagnosis ??? Vitiligo ??? Essential hypertension ??? PMR (polymyalgia rheumatica) ([facility]) ([facility]) Assessment Plan: 1. PMR (polymyalgia rheumatica) (HCC-CMS) ([facility]) In remission on low dose steroids Recently stopped MTX due to stomatitis and/or candidiasis. Discussed that it is reasonable to restart it with higher folic acid dose and leucovorin and see if she develops this again. She is willing to try For more details see patient's instructions - C REACTIVE PROTEIN; Future - SED RATE; Future 2. At risk for side effect of medication - COMPREHENSIVE METABOLIC PANEL (CMP); Standing - COMPLETE BLOOD COUNT AND DIFFERENTIAL; Standing 3. Rash Eyelid erythema. Not pruriginous Doubt DM, but will check MYOMARKER 3 PLUS PROFILE; Future Plan: As outlined in patient's instructions Patient Instructions Labs every 1 to 2 months. Please restart methotrexate 6 tablets weekly, plus folic acid 2 tablets daily daily, plus the leucovorin 1 tablet the day after methotrexate. Taper prednisone by 1 mg every 1 month until down to 0 Milagros Evans MD I spent a total of 30 minutes on the date of this encounter meeting with the patient and reviewing documentation/coordinating care as described in the above note. No procedures were performed at the time of the visit. Milagros Evans MD Department of Rheumatology Attending Physician Pager: [phone] documented in this encounter Plan of Treatment Upcoming Encounters Date Type Specialty Care Team Description 09/25/2022 Office Visit Rheumatology Milagros Evans MD [address] [place] [address], [facility], [address] [place] [phone] (Wo rk) Scheduled Orders Name Type Priority Associated Diagnoses Order S chedule COMPREHENSIVE METABOLIC Lab Routine PMR (polymyalgia every 3m onths for 12 PANEL (CMP) rheumatica) ([facility] Occurr ences starting ([facility]) 01/25/2022 until At risk for side 01/27/2024 effect of medica tion Rash COMPLETE BLOOD COUNT AND Lab Routine PMR (polymyalgia every 3m onths for 12 DIFFERENTIAL rheumatica) ([facility] Occurr ences starting ([facility]) 01/25/2022 until At risk for side 01/27/2024 effect of medica tion Rash COMPREHENSIVE METABOLIC Lab Routine PMR (polymyalgia every 3 months for 12 PANEL (CMP) rheumatica) ([facility] Occurr ences starting ([facility]) 01/25/2022 until At risk for side 01/27/2024, 1 completed effect of medication COMPLETE BLOOD COUNT AND Lab Routine PMR (polymyalgia every 3 months for 12 DIFFERENTIAL rheumatica) ([facility] Occurr ences starting (HCC) 01/25/2022 until At risk for side 01/27/2024, 1 completed effect of medica tion Rash documented as of this encounter Results (ABNORMAL) COMPREHENSIVE METABOLIC PANEL (CMP) (01/25/2022 13:34 EDT) [facility] Method Time Signature Sodium 143 136 - [...] Glucose 106 (H) 70 - 100 01/25/2022 [facility] mg/dL 14:56 EDT [facility] BUN 21 10 - 26 01/25/2022 [facility] mg/dL 14:56 EDT [facility] Creatinine 0.77 0.52 - 01/25/2022 [facility] 1.04 mg/dL 14:56 EDT [facility] eGFR 84 >60 01/25/2022 [facility] mL/min/1.7 14:56 EDT CENTER 3m2 LABORATORY SERVICES Total Protein 6.6 6.3 - 8.2 01/25/2022 [facility] g/dL 14:56 EDT [facility] Albumin 4.4 3.4 - 4.9 01/25/2022 [facility] g/dL 14:56 EDT [facility] Alkaline 47 38 - 126 01/25/2022 [facility] Phosphatase U/L 14:56 EDT [facility] AST 25 15 - 46 01/25/2022 [facility] U/L 14:56 EDT [facility] ALT 19 <35 U/L 01/25/2022 [facility] 14:56 EDT [facility] Bilirubin, Total <0.5 <1.4 mg/dL 01/25/2022 [facility] 14:56 EDT [facility] Calcium 9.3 8.5 - 10.5 01/25/2022 [facility] mg/dL 14:56 EDT [facility] Albumin/Globulin 2.0 1.0 - 2.5 01/25/2022 [facility] Ratio 14:56 EDT [facility] Anion Gap 11 5 - 14 01/25/2022 [facility] 14:56 EDT [facility] Specimen Anatomical Collection Method / Collection Time Recei ashlee Time (Source) Location / Volume Laterality Blood VENOUS BLOOD / Venipuncture / 01/25/2022 13:34 022 Unknown Unknown EDT 14:22 EDT Milagros Evans MD CHEMISTRY & BLOOD GAS ORDERA BLES Performing Organization Address City/State/ZIP Code Phon e Number [facility] [address] [place] [address] SERVICES (ABNORMAL) COMPLETE BLOOD COUNT AND DIFFERENTIAL (01/25/2022 13:33 EDT) [facility] Method Time Signature WBC 7.85 4.00 - 01/25/2022 [facility] 12.40 14:33 EDT CENTER K/m LABORATORY SERVICES RBC 4.76 3.86 - 01/25/2022 [facility] 5.04 14:33 EDT CENTER M/[facility] LABORATORY SERVICES Hemoglobin 15.1 11.6 - 01/25/2022 [facility] 15.2 14:33 EDT CENTER gm/dL LABORATORY SERVICES HCT 45.0 (H) 34.9 - 01/25/2022 [facility] 44.4 % 14:33 EDT [facility]ENTER [facility] MCV 95 81 - 98 01/25/2022 [facility] fl 14:33 EDT [facility] MCH 31.7 26.7 - 01/25/2022 [facility] 33.3 pg 14:33 EDT [facility]ENTER [facility] MCHC 33.6 32.1 - 01/25/2022 [facility] 35.9 14:33 EDT CENTER gm/dL LABORATORY SERVICES RDW-CV 13.4 <14.7 % 01/25/2022 [facility] 14:33 EDT [facility]ENTER [facility] SERVICES RDW-SD 46.7 <50.4 fl 01/25/2022 [facility] 14:33 EDT [facility]ENTER [facility] PLT 281 141 - 377 01/25/2022 [facility] K/cmm 14:33 EDT [facility]ENTER LAB[facility] SERVICES MPV 9.1 (L) 9.5 - 01/25/2022 [facility] 12.7 fl 14:33 EDT [facility]ENTER [facility] Neutrophils 79.4 % 01/25/2022 [facility] 14:33 EDT [facility] Lymphocytes 15.4 % 01/25/2022 [facility] 14:33 EDT [facility] Monocytes 3.7 % 01/25/2022 [facility] 14:33 EDT [facility] Eosinophils 0.5 % 01/25/2022 [facility] 14:33 EDT [facility] Basophils 0.6 % 01/25/2022 [facility] 14:33 EDT [facility] Immature Grans 0.4 % 01/25/2022 [facility] 14:33 EDT [facility] LABOR[facility] SERVICES Absolute 6.23 2.20 - 01/25/2022 [facility] Neutrophils 8.85 14:33 EDT CENTER K/cmm LABORATORY SERVICES Absolute 1.21 1.09 - 01/25/2022 [facility] Lymphocytes 3.30 14:33 EDT CENTER K/cmm LABORATORY SERVICES Absolute 0.29 0.10 - 01/25/2022 [facility] Monocytes 0.80 14:33 EDT CENTER K/cmm LABORATORY SERVICES Absolute 0.04 0.03 - 01/25/2022 [facility] Eosinophils 0.61 14:33 EDT CENTER K/cmm LABORATORY SERVICES Absolute 0.05 0.01 - 01/25/2022 [facility] Basophils 0.11 14:33 EDT CENTER K/m LABORATORY SERVICES Absolute 0.03 0.00 - 01/25/2022 [facility] Immature Grans 0.06 14:33 EDT CENTER K/[facility] LABORATORY SERVICES Type of Auto 01/25/2022 [facility] Differential: 14:33 EDT [facility]ENTER [facility] Specimen Anatomical Collection Method / Collection Time Recei ashlee Time (Source) Location / Volume Laterality Blood VENOUS BLOOD / Venipuncture / 01/25/2022 13:33 022 Unknown Unknown EDT 14:21 EDT Milagros Evans MD PACKAGES & DNA PROBE ORDERAB LES Performing Organization Address City/State/ZIP Code Phon e Number [facility] [address] [place] [address] SERVICES MYOMARKER 3 PLUS PROFILE (01/25/2022 13:33 EDT) [facility] Method Time Signature Anti-Glenda-1 Ab <20 <20 Units 02/12/2022 [facility] 19:06 EDT LABORATORIES Anti PL-7 Negative Negative 02/12/2022 [facility] 19:06 ED LABORATORIES Comment: This test was developed and its performa nce characteristics determined by [facility]. It has not been c leared or approved by the Food and Drug Administra tion. Anti-PL-12 Ab Negative Negative 02/12/2022 19:06 EDT [facility] Comment: This test was developed and its performa nce characteristics determined by [facility]. It has not been c leared or approved by the Food and Drug Administra tion. Anti-EJ Ab Negative Negative 02/12/2022 19:06 EDT [facility] Comment: This test was developed and its performa nce characteristics determined by [facility]. It has not been c leared or approved by the Food and Drug Administra tion. Anti-OJ Ab Negative Negative 02/12/2022 19:06 EDT [facility] Comment: This test was developed and its performa nce characteristics determined by [facility]. It has not been c leared or approved by the Food and Drug Administra tion. Anti-SRP Ab Negative Negative 02/12/2022 19:06 EDT [facility] Comment: This test was developed and its performa nce characteristics determined by [facility]. It has not been c leared or approved by the Food and Drug Administra tion. Plpa-Yr-2-Ab Negative Negative 02/12/2022 19:06 [facility] Comment: This test was developed and its performa nce characteristics determined by [facility]. It has not been c leared or approved by the Food and Drug Administra tion. Qyvi-CCM-6hsuas Ab <20 <20 Units 02/12/2022 19:06 [facility] Comment: This test was developed and its performa nce characteristics determined by [facility]. It has not been c leared or approved by the Food and Drug Administra tion. Anti-MDA-5 Ab <20 <20 Units 02/12/2022 19:06 EDT [facility] (CADM-140) Comment: This test was developed and its performa nce characteristics determined by [facility]. It has not been c leared or approved by the Food and Drug Administra tion. Anti-NXP-2 (P140) Ab <20 <20 Units 02/12/2022 19:0 6 EDT [facility] Comment: This test was developed and its performa nce characteristics determined by [facility]. It has not been c leared or approved by the Food and Drug Administra tion. Anti-SAE1 Ab, IgG <20 <20 Units 02/12/2022 19:06 EDT [facility] Comment: This test was developed and its performa nce characteristics determined by [facility]. It has not been c leared or approved by the Food and Drug Administra tion. Anti-PM/Scl-100 Ab <20 <20 Units 02/12/2022 19:06 EDT [facility] Comment: This test was developed and its performa nce characteristics determined by [facility]. It has not been c leared or approved by the Food and Drug Administra tion. Anti-Ku Ab Negative Negative 02/12/2022 19:06 EDT [facility] Comment: This test was developed and its performa nce characteristics determined by [facility]. It has not been c leared or approved by the Food and Drug Administra tion. Anti-SS-A 52kD Ab, IgG <20 <20 Units 02/12/2022 19 :06 EDT [facility] Comment: This test was developed and its performa nce characteristics determined by [facility]. It has not been c leared or approved by the Food and Drug Administra tion. Anti-U1 MASK DESIGNER Ab <20 <20 Units 02/12/2022 19:06 EDT [facility] Anti-U2 MASK DESIGNER Ab Negative Negative 02/12/2022 19:06 EDT [facility] Comment: This test was developed and its performa nce characteristics determined by [facility]. It has not been c leared or approved by the Food and Drug Administra tion. Anti-U3 MASK DESIGNER Negative Negative 02/12/2022 19:06 [facility] (Fibrillarin) EDT LABORATORIES Comment: This test was developed and its performa nce characteristics determined by [facility]. It has not been c leared or approved by the Food and Drug Administra tion. ?Interpretation for Anti-Glenda-1, Anti -TIF-1gamma, ?Anti-MDA-5, Anti-NXP-2, Anti-SAE1, Anti-PM/Scl-100, ?Anti-SS-A 52 kD, Anti-U1 MASK DESIGNER: ?Negative: ?<20 ?Weak Positive: ? 20 - 39 ?Moderate Positive: ? 40 - 80 ?Strong Positive: ? >80 ?. Test Performed by: [facility] [address] [place] [address] Specimen Anatomical Collection Method / Collection Time Recei ashlee Time (Source) Location / Volume Laterality Blood VENOUS BLOOD / Venipuncture / 01/25/2022 13:33 022 Unknown Unknown EDT 14:15 EDT Milagros Evans MD CHEMISTRY & BLOOD GAS ORDERA [facility] Performing Organization Address City/State/ZIP Code Phon e Number [facility] [address] [place] [address] documented in this encounter Visit Diagnoses Diagnosis PMR (polymyalgia rheumatica) ([facility] ( [facility]) - Primary Polymyalgia rheumatica At risk for side effect of medication Rash Rash and other nonspecific skin eruption documented in this encounter Discontinued Medications Medication Sig Discontinue Reason Start Date End Date folic acid (FOLVITE) 1 Take 1 Tablet by Reorder 09/14/2021 0 01/25/2022 mg tablet mouth daily. documented as of this encounter Orders Lab Orders Without Results Count Last Ordered Date st Ordered Date C REACTIVE PROTEIN 1 01/25/2022 SED RATE 1 01/25/2022 documented in this encounter Care Teams Cable Engineer Outside [employer] Relationship Specialty Start Date End Date Juaquin Iniguez MD PCP - General 02/23/21 [address] [place] [address] documented as of this encounter
--- OUTSIDE RECORDS SUMMARY | 2022-05-05 18:47 | XMS_ITS | Encounter Summary ---
:1955 Author Organization [facility] Address [address] [place] [address] Care Team Providers Name Role Phone Unknown, Provider Primary Care Provider Encounter Details Date Type Department Care Team Description 01/22/2017 Results Only [place]- Gissell Dior [phone] MD Nil[place] [address] [facility], [place] [address] (Wo rk) Social History Tobacco Use Types Packs/Day Years Used Date Smoking Tobacco: Never Assessed Sex Assigned at Date Recorded Not on file documented as of this encounter Plan of Treatment Upcoming Encounters Date Type Specialty Care Team Description 09/25/2022 Office Visit Rheumatology Milagros [place] MD [address] [facility], [facility], [address] [place], [place] [address] (Wo rk) documented as of this encounter Procedures Procedure Name Priority Date/Time Associated Diagnosis Comme nts PAP TEST- RESULT Routine 01/22/2017 0:00 EDT Resu lts for this ONLY procedure are i n the results section. documented in this encounter Results PAP TEST- RESULT ONLY (01/22/2017 0:00 EDT) Component Value Ref Test Analysis Performed At [facility] Method Time Signature Pathology CYTOPATHOLOGY REPORT [facility] Report: CENTER Reports generated via electronic interface contain origina l data; LABORATORY however they are lacking the format of the original report. SERVICES Caution should be taken when reading/interpreting unformatte d reports. Name: ? MIKO, KEYANNA ? Accession #: ? [id number] ? : ? 1955 (Age: 5 2) ??F ?Collect Date: ? 2016 ? Location: ? [facility] ? Receive Date: ? 01/24/2017 ? Provider: GISSELL MURCIA MD Copy to: ? Final Report SPECIMEN ADEQUACY ? Satisfactory for Evaluation - assessment of transformation zone component not appl icable ( e.g. atrophy, vaginal sample, hysterectomy) - scant squamous epithelial component - obscuring contamination, possibly lubricant GENERAL CATEGORIZATION ? Negative for Intraepithelial Lesion or Malignancy ?? Last Menstrual Period: 2003 Hormonal/Contraceptive status: None Other: Previous NIL Pap(s): 10/22 07/29 Additional clinical information: pap insuffient 08/31 Specimen/Source: ??Pap Test, Cervix, ThinPrep Imaging System with manual evaluation Document reviewed and electronically signed by: ? Sydnee Chu, SUMAYA(ASCP)([facility]) ? Report ??Date: 01/31/2017 10:26 HPV with Pap Test ? Date Ordered: ? 01/31/2017 ? Status: ?? Signed Out ?Date Complete: ? 02/01/2017 ? By: ??System I nterface ? Date Reported: ? 02/01/2017 ? Interpretation RESULT: Negative for HPV. No E6 or E7 mRNA is detected from HPV types 16,18,31,33,35, 39,45,51,52,56,58,59,66, and 68 by feller machine operator mediated amplification. Comments Document reviewed and electronically signed by: ? System Interface ? Report date: 02/01/2017 By the signature above, the attending physician certifies th at he/she has personally conducted a gross and/or microscopic examin ation of the described specimens and rendered or confirmed the above diagnosis. End of Report Specimen (Source) Anatomical Location Collection Method / Collectio n Time Received Time / Laterality Volume 01/22/2017 01/24/2017 Gissell Murcia MD PATHOLOGY ORDERABLES Performing Organization Address City/State/ZIP Code Phon e Number [facility] [address] [place] [address] SERVICES documented in this encounter Visit Diagnoses Not on filedocumented in this encounter Care Teams Automotive Glass Specialist Relationship Specialty Start Date End Date Unknown, Provider, PCP - General 09/02/15 02/22/21 documented as of this encounter
--- OUTSIDE RECORDS SUMMARY | 2022-05-05 18:47 | XMS_ITS | Encounter Summary ---
:1955 Author Organization [facility] Address [address] [place] [address] Care Team Providers Name Role Phone Unknown, Provider Primary Care Provider Encounter Details Date Type Department Care Team Description 10/18/2018 Results Only [facility]- Jj nAtoine MD [phone] [address] [place], [place] [phone] (Wo rk) Social History Tobacco Use Types Packs/Day Years Used Date Smoking Tobacco: Never Assessed Sex Assigned at Date Recorded Not on file documented as of this encounter Plan of Treatment Upcoming Encounters Date Type Specialty Care Team Description 09/25/2022 Office Visit Rheumatology Milagros [place] MD [address] [facility], [facility], [address] [place], [place] [address] (Wo rk) documented as of this encounter Procedures Procedure Name Priority Date/Time Associated Diagnosis Comme nts PAP TEST- RESULT Routine 10/18/2018 0:00 EDT Resu lts for this ONLY procedure are i n the results section. documented in this encounter Results PAP TEST- RESULT ONLY (10/18/2018 0:00 EDT) Component Value Ref Test Analysis Performed At [facility] Range Method Time Signature Pathology CYTOPATHOLOGY REPORT [facility] Report: CENTER Reports generated via electronic interface contain origina l data; LABORATORY however they are lacking the format of the original report. SERVICES Caution should be taken when reading/interpreting unformatte d reports. Name: ? MIKO, KEYANNA ? Accession #: ? [id number] : ? 1955 (Age: 5 4) ??F ?Collect Date: ? 10/18/2018 Location: ? [facility] ? Receive Date: ? 10/23/2018 Provider: ?JJ INIGUEZ MD Copy to: ? Specimen/Source: ? Pap [...] Date: ??10/24/2018 13:02 End of Report Specimen (Source) Anatomical Location Collection Method / Collectio n Time Received Time / Laterality Volume 10/18/2018 10/23/2018 Jj Iniguez MD PATHOLOGY ORDERABLES Performing Organization Address City/State/ZIP Code Phon e Number [facility] [address] [place] [phone] SERVICES documented in this encounter Visit Diagnoses Not on filedocumented in this encounter Care Teams Oxyacetylene Cutter Relationship Specialty Start Date End Date Unknown, Provider, PCP - General 09/02/15 02/22/21 documented as of this encounter
[2022-05-05 20:13] LABS: Abs Immature Grans 0.02 10^3/uL (0.0-0.06); Absolute Basophil Count 0.05 10^3/uL (0.0-0.2); Absolute Eosinophil Count 0.13 10^3/uL (0.0-0.7); Absolute Monocyte Count 0.44 10^3/uL (0.1-0.8); Absolute Neutrophil Count 3.83 10^3/uL (1.2-6.7); Basophils % 0.8; HCT 48.4 % (36.0-46.0); HGB 15.4 g/dL (11.2-15.7); Immature Grans % 0.3; Lymphocytes % 29.8; MCH 30.6 pg (27.0-33.0); MCHC 31.8 % (32.0-36.0); MCV 96 fL (80-95); MPV 9.3 fL (8.0-11.0); Monocytes % 6.9; Neutrophils % 60.2; Platelet Count 290 10^3/uL (130-400); RBC 5.04 10^6/uL (3.93-5.22); RDW 13.8 % (11.7-14.6); RDW-SD 48.6 fL; WBC 6.37 10^3/uL (4.4-10.8)
[2022-05-05 20:14] LABS: ALT 31 U/L (14-59); AST 21 U/L (15-37); Albumin 3.9 g/dL (3.4-5.0); Alkaline Phosphatase 54 U/L (46-116); Anion Gap 6.2 mmol/L (3-11); BUN 24 mg/dL (7-18); Bilirubin, Direct 0.1 mg/dL (0.0-0.2); Bilirubin, Total 0.4 mg/dL (0.2-1.0); CO2 30.8 mmol/L (21.0-32.0); Calcium 9.3 mg/dL (8.5-10.1); Chloride 106 mmol/L (98-107); Estimated GFR 61.75 (mL/min/1.73m2); Glucose 83 mg/dL (74-106); Potassium 4.3 mmol/L (3.5-5.1); Sodium 143 mmol/L (136-145)
== END 2022-05-05 18:45 | disposition home or self-care (01) ==
LOC: NCHCN 18:44
PROVIDERS: PCP Internal Medicine; Visit Provider Internal Medicine
DX: M35.3 Polymyalgia rheumatica (principal)
CPT/HCPCS: 80053; 80076; 85025

== ENCOUNTER 2022-06-05 17:46 | Outpatient (REF) | payer MEDICARE, BC, SELFPAY ==
[2022-06-05 19:12] LABS: ESR 5 mm/hr (0-30)
[2022-06-05 19:13] LABS: Abs Immature Grans 0.02 10^3/uL (0.0-0.06); Absolute Basophil Count 0.07 10^3/uL (0.0-0.2); Absolute Eosinophil Count 0.05 10^3/uL (0.0-0.7); Absolute Lymphocyte Count 1.48 10^3/uL (1.2-3.4); Absolute Monocyte Count 0.43 10^3/uL (0.1-0.8); Absolute Neutrophil Count 6.34 10^3/uL (1.2-6.7); Basophils % 0.8; Eosinophils % 0.6; HCT 45.4 % (36.0-46.0); HGB 14.8 g/dL (11.2-15.7); Immature Grans % 0.2; Lymphocytes % 17.6; MCHC 32.6 % (32.0-36.0); MCV 95 fL (80-95); MPV 9.3 fL (8.0-11.0); Monocytes % 5.1; Neutrophils % 75.7; Platelet Count 274 10^3/uL (130-400); RBC 4.77 10^6/uL (3.93-5.22); RDW 13.4 % (11.7-14.6); RDW-SD 47.2 fL; WBC 8.39 10^3/uL (4.4-10.8)
[2022-06-05 19:24] LABS: ALT 29 U/L (14-59); AST 19 U/L (15-37); Albumin 4.1 g/dL (3.4-5.0); Alkaline Phosphatase 59 U/L (46-116); Anion Gap 4.6 mmol/L (3-11); BUN 25 mg/dL (7-18); Bilirubin, Total 0.4 mg/dL (0.2-1.0); CO2 32.4 mmol/L (21.0-32.0); CREATININE 0.9 mg/dL (0.55-1.02); Calcium 9.6 mg/dL (8.5-10.1); Chloride 109 mmol/L (98-107); Estimated GFR 70.07 (mL/min/1.73m2); Glucose 96 mg/dL (74-106); Potassium 4.9 mmol/L (3.5-5.1); Sodium 146 mmol/L (136-145)
[2022-06-05 19:25] LABS: C-Reactive Protein < 0.05 mg/dL (0.0-0.3)
== END 2022-06-05 17:47 | disposition home or self-care (01) ==
LOC: LBN 17:46
PROVIDERS: PCP Internal Medicine; Visit Provider Internal Medicine
DX: M35.3 Polymyalgia rheumatica (principal); Z79.899 Other long term (current) drug therapy
CPT/HCPCS: 80053; 85652; 85025; 86140

== ENCOUNTER 2022-09-01 17:15 | Outpatient (REF) | payer MEDICARE, BC, SELFPAY ==
[2022-09-01 20:23] LABS: ESR 6 mm/hr (0-30)
[2022-09-01 20:24] LABS: Abs Immature Grans 0.02 10^3/uL (0.0-0.06); Absolute Basophil Count 0.06 10^3/uL (0.0-0.2); Absolute Eosinophil Count 0.12 10^3/uL (0.0-0.7); Absolute Lymphocyte Count 1.61 10^3/uL (1.2-3.4); Absolute Monocyte Count 0.56 10^3/uL (0.1-0.8); Absolute Neutrophil Count 4.45 10^3/uL (1.2-6.7); Basophils % 0.9; Eosinophils % 1.8; HCT 47.2 % (36.0-46.0); HGB 15.6 g/dL (11.2-15.7); Immature Grans % 0.3; Lymphocytes % 23.6; MCHC 33.1 % (32.0-36.0); MCV 94 fL (80-95); MPV 9.4 fL (8.0-11.0); Monocytes % 8.2; Neutrophils % 65.2; Platelet Count 282 10^3/uL (130-400); RBC 5.04 10^6/uL (3.93-5.22); RDW 13.2 % (11.7-14.6); RDW-SD 44.9 fL; WBC 6.82 10^3/uL (4.4-10.8)
[2022-09-01 20:42] LABS: ALT 49 U/L (14-59); AST 31 U/L (15-37); Albumin 3.9 g/dL (3.4-5.0); Alkaline Phosphatase 59 U/L (46-116); BUN 25 mg/dL (7-18); Bilirubin, Total 0.4 mg/dL (0.2-1.0); C-Reactive Protein < 0.05 mg/dL (0.0-0.3); CREATININE 0.8 mg/dL (0.55-1.02); Calcium 9.4 mg/dL (8.5-10.1); Chloride 108 mmol/L (98-107); Estimated GFR 80.21 (mL/min/1.73m2); Glucose 115 mg/dL (74-106); Potassium 4.4 mmol/L (3.5-5.1); Sodium 141 mmol/L (136-145); Total Protein 6.9 g/dL (6.4-8.2)
== END 2022-09-01 17:16 | disposition home or self-care (01) ==
LOC: LBN 17:15
PROVIDERS: PCP Internal Medicine; Visit Provider Internal Medicine
DX: M35.3 Polymyalgia rheumatica (principal); Z79.899 Other long term (current) drug therapy; Z91.89 Other specified personal risk factors, not elsewhere classified; R21 Rash and other nonspecific skin eruption
CPT/HCPCS: 80053; 85652; 85025; 86140

== ENCOUNTER 2023-02-14 17:12 | Outpatient (REF) | payer MEDICARE, BC, SELFPAY ==
--- OUTSIDE RECORDS SUMMARY | 2023-02-14 17:14 | XMS_ITS | Continuity of Care Document ---
Author Name Unknown Organization [facility] Address [address] [place] [address] Care Team Providers Care Nightman Name Role Phone Primeau IPHC, Juaquin Wynne Primary Care Physician Encounter [facility] Date(s): 10/13/22 - 10/13/[address] [address] Discharge Disposition: Home Allergies, Adverse Reactions, Alerts Substance Reaction Severity Status amoxicillin Unknown Active amoxicillin Unknown Active sulfa drugs Unknown Active sulfa drugs Urticaria Unknown Active Assessment and Plan Future Scheduled Tests Radiology* US Pelvic Non OB Comp w/ Transvag 10/13/22 Medications folic acid 0 Refill(s) Start Date: 03/09/22 Status: Ordered leucovorin 5 mg oral tablet 15 mg = 3 tab, Oral, every 6 hr, # 120 tab, 0 Refill(s) Start Date: 03/09/22 Stop Date: 03/12/22 Status: Ordered methotrexate 5 mg oral tablet 0 Refill(s) Start Date: 03/09/22 Status: Ordered metoprolol succinate 25 mg oral capsule, extended release 0 Refill(s) Start Date: 03/09/22 Status: Ordered predniSONE 0 Refill(s) Start Date: 03/09/22 Status: Ordered Vitamin D3 1000 intl units oral tablet, chewable 50 mcg = 2 tab, Chewed, Daily Start Date: 03/07/22 Status: Ordered Problem List Condition Confirmation Course Effective Dates Status H ealth Status Informant Anxiety disorder Confirmed 12/05/18 Active Bronchitis Confirmed 12/05/18 Active Disorder of bone Confirmed Active Disorder of urinary tract Confirmed 12/05/18 Active Disorder of vocal cord Confirmed 12/05/18 Active Gastroesophageal reflux disease Confirmed 08/23/21 Active Genuine stress incontinence Confirmed Active Impacted cerumen Confirmed 12/05/18 Active Menopausal symptom Confirmed Active Paroxysmal supraventricular tachycardia Confirmed 08/23/21 Active Vasovagal syncope Confirmed 12/05/18 Active Vitiligo Confirmed 12/05/18 Active Procedures Procedure Date Related Diagnosis Body Site Status Due 01/2022 1 01/21/17 Completed Appendectomy 1974 Completed 02/01/17 - Neg/Neg Next Pap Due 01/2022 Social History Social History Type Response Tobacco Never tobacco user T obacco Use:. Sex Female Patient Care team information Care Team Personnel Name: [facility] Position: No Access Member Role: Primary Care Physician Address: Address: [id number] [place] [address] Care Team Related Persons Name: ANGEL CROUCH Address: Home Name: TAVARES CORREIA Address: Home
--- OUTSIDE RECORDS SUMMARY | 2023-02-14 17:14 | XMS_ITS | Continuity of Care Document ---
Author Name Unknown Organization [facility] Address [address] [place] [address] Care Team Providers Care Freezer Operator Name Role Phone Primeau IPHC, Juaquin Wynne Primary Care Physician Encounter [facility] Date(s): 10/16/22 - 10/16/[address] [address] Discharge Disposition: Home Allergies, Adverse Reactions, Alerts Substance Reaction Severity Status amoxicillin Unknown Active amoxicillin Unknown Active sulfa drugs Unknown Active sulfa drugs Urticaria Unknown Active Assessment and Plan Future Scheduled Tests Radiology* US Transvaginal Non-OB 04/06/23 Medications folic acid 0 Refill(s) Start Date: [...] team information Care Team Personnel Name: [facility] Position: No Access Member Role: Primary Care Physician Address: Address: [address] Care Team Related Persons Name: ANGEL CROUCH Address: Home Name: TAVARES CORREIA Address: Home
--- OUTSIDE RECORDS SUMMARY | 2023-02-14 17:14 | XMS_ITS | Continuity of Care Document ---
Author Name Unknown Organization [facility] Address [address] [place] [address] Care Team Providers Care Golf Course Designer Name Role Phone Primeau IPHCJuaquin Primary Care Physician Encounter [facility] Date(s): 11/09/22 - 11/09/[address] [address] Discharge Disposition: Home or Self Care Attending Physician: Gabriel Park MD Admitting Physician: Gabriel Park MD Referring Physician: Gabriel Park MD Allergies, Adverse Reactions, Alerts Substance Reaction [...] Status Due 01/2022 1 01/21/17 Completed Appendectomy 1975 Completed 02/01/17 - Neg/Neg Next Pap Due 01/2022 Social History Social History Type Response Tobacco Never tobacco user T obacco Use:. Sex Female Patient Care team information Care Team Personnel Name: Juaquin Palacio MD Position: No Access Member Role: Primary Care Physician Address: Address: [address] Care Team Related Persons Name: ANGEL CROUCH Address: Home Name: TAVARES CORREIA Address: Home
--- OUTSIDE RECORDS SUMMARY | 2023-02-14 17:14 | XMS_ITS | Continuity of Care Document ---
Author Name Unknown Organization [facility] Address [address] [place] [address] Care Team Providers Care Head Men'S Tennis Coach Name Role Phone Primeau Juaquin OROZCO Primary Care Physician Encounter [facility] Date(s): 11/05/22 - 11/05/[address] [address] Encounter Diagnosis Transient memory loss(Discharge Diagnosis) - 11/05/22 Discharge Disposition: Home or Self Care Attending Physician: Justice Cannon MD Admitting Physician: Justice Cannon MD Referring Physician: Justice Cannon MD Allergies, Adverse Reactions, Alerts Substance Reaction [...] 02/01/17 - Neg/Neg Next Pap Due 01/2022 Results Laboratory List Name Date CBC w/ Diff 11/05/22 Comprehensive Metabolic Panel 11/05/22 Thyroid Stimulating Hormone (TSH) 3 Automated Diff 11/05/22 Most recent to oldest [Reference Range]: 1 WBC [5.0-10.0 x10^3/mcL] 5.9 x10^3/mcL (11/05/22 12:52 PM) RBC [4.1-5.3 x10^6/mcL] 4.0 x10^6/mcL *LOW* (11/05/22 12:52 PM) Neutro Auto [40.0-75.0 %] 67.0 % (11/05/22 12:52 PM) Lymph Auto [20.0-50.0 %] 23.6 % (11/05/22 12:52 PM) [place] Auto [2.0-15.0 %] 7.1 % (11/05/22 12:52 PM) Basophil Auto [0.0-1.0 %] 0.5 % (11/05/22 12:52 PM) BUN [7-18 mg/dL] 20 mg/dL *HI* (11/05/22 12:52 PM) Glucose Level [74-106 mg/dL] 96 mg/dL (11/05/22 12:52 PM) Potassium Level [3.5-5.1 mmol/L] 4.2 mmo l/L (11/05/22 12:52 PM) MCV [80.0-96.0 fL] 94.7 fL (11/05/22 12:52 PM) AST [15-37 unit/L] 28 unit/L (11/05/22 12:52 PM) ALT [14-59 unit/L] 50 unit/L (11/05/22 12:52 PM) MCHC [31.0-35.0 g/dL] 33.1 g/dL (11/05/22 12:52 PM) Sodium Level [136-145 mmol/L] 140 mmol/L (11/05/22 12:52 PM) Hct [37.0-47.0 %] 37.8 % (11/05/22 PM) Calcium Level [8.5-10.1 mg/dL] 9.6 mg/dL (11/05/22:52 PM) Albumin Level [3.4-5.0 g/dL] 4.0 g/dL (11/05/22 PM) Protein Total [6.4-8.2 g/dL] 7.2 g/dL (11/05/22:52 PM) MCH [26.0-32.0 pg] 31.3 pg (11/05/22:52 PM) Neutro Absolute 4.0 x10^3/mcL *NA* (11/05/22:52 PM) Bilirubin Total [0.2-1.0 mg/dL] 0.3 mg/d L (11/05/22:52 PM) Hgb [12.0-16.0 g/dL] 12.5 g/dL (11/05/22:52 PM) Alk Phos [46-146 unit/L] 57 unit/L (11/05/22:52 PM) Platelets [130-450 x10^3/mcL] 200 x10^3/ mcL (11/05/22 12:52 PM) CO2 [21-32 mmol/L] 26 mmol/L (11/05/22 12:52 PM) TSH [0.358-3.740 mcIntlUnit/mL] 2.366 mc IntlUnit/mL (11/05/22 12:52 PM) eGFR Non-AA [>=60] 75 (11/05/22 12:52 PM) eGFR AA [>=60] 75 (11/05/22 12:52 PM) Chloride Level [98-107 mmol/L] 105 mmol/ L (11/05/22 12:52 PM) RDW-CV [11.5-14.5 %] 13.2 % (11/05/22 12:52 PM) Imm Gran Auto [0.0-0.9 %] 0.3 % (11/05/22 12:52 PM) Creatinine Level [0.55-1.02 mg/dL] 0.85 mg/dL (11/05/22 12:52 PM) Eos, Auto [1.0-6.0 %] 1.5 % (11/05/22 12:52 PM) Vital Signs Most recent to oldest [Reference Range]: 1 2 3 Temperature Temporal Artery [36-38 Deg C] 36.5 Deg C (11/05/22 12:04 PM) Peripheral Pulse Rate [60-100 bpm] 62 bpm (11/05/22 12:04 PM) Heart Rate Monitored [60-100 bpm] 57 bpm *LOW* (11/05/22 1:18 PM) 66 bpm (11/05/22 12:43 PM) Respiratory Rate [12-24 br/min] 23 br/min (11/05/22 1:18 PM) 14 br/min (11/05/22 12:43 PM) 16 br/min (11/05/22 12:04 PM) Blood Pressure [90-140/60-90 mmHg] 169/94mmHg *HI* (11/05/22 1:18 PM) 191/91mmHg *HI* (11/05/22 12:43 PM) 183/95mmHg *HI* (11/05/22 12:04 PM) Weight Dosing 55.34 kg (11/05/22 12:11 PM) Weight Estimated 55.34 kg (11/05/22 12:04 PM) Height/Length Dosing 157.480 cm (11/05/22 12:11 PM) Height/Length Estimated 157.480 cm (11/05/22 12:04 PM) Social History Social History Type Response Tobacco Never tobacco user T obacco Use:. Sex Female Hospital Discharge Instructions Follow Up Care 11/05/2022 12:04:50 With:Hira Juaquin GUZMAN MD Address: [address] [phone] When:1 week Emergency department Discharge instructions * Gabriel Park MD: PERFORM Event Display: ED Discharge Information Authored Date: [id number] KEYANNA CROUCH :1955 Age:67 years Sex:Female Visit Date:11/05/2022 Primary Care Physician: Juaquin Palacio MD Discharge Instructions We would like to thank you for allowing us to assist you with your healthcare needs. The following includes patient education materials and information regarding your injury/illness. Diagnosis from Today's Visit Transient memory loss Discharge Vitals Temperature??(Temporal Artery) 97.7 ??F (36.5 ??C) Heart Rate??(Monitored) 57 Respiratory Rate?? 23 Blood Pressure?? 169/94?? Height?? 62.00 in (157.480 cm) Weight??(Estimated) 122.02 lb (55.34 kg) Allergies amoxicillin amoxicillin sulfa drugs sulfa drugs??(Urticaria) What to Do Next Instructions from Your Care Team Thank you for coming to the emergency department today, it has been a pleasure to take care of you.??As we??discussed, your??CT scan on the head and the CT angiogram (blood vessel scan) did not showsigns of bleeding or stroke.?? We would still recommend having an MRI done to ensure that there is n o??small??stroke that caused your??memory loss.?? If the MRI is normal,??this would likely be transient global amnesia.?? Someone should call you from radiology tomorrow to set up your scan.?? Please follow-up with your regular doctor to review results and determine if you need any further testing or treatment.?? Please return to the emergency??department if you have any new or concerning symptoms including any??further episodes of memory loss, vision change, trouble speaking, any numbness, tingling, weakness, chest pain or trouble breathing, or any other symptoms that concern you. You Need to Schedule the Following Appointments Follow Up with??Juauqin Palacio MD When:??Within 1 week Where: [address] [address] [phone] You were treated today on an emergency basis; it may be allen to contact your primary care provider to notify them of your visit today. You may have been referred to your regular doctor or a specialist, please follow up as instructed. If your condition worsens or you can't get in to see the doctor, contact the Emergency Department. Medications What How Much When Instructions Next Dose Unchanged cholecalciferol (Vitamin D3 1000 intl units oral tablet, chewable) 2 tab Chewed Every day Unchanged folic acid Unchanged leucovorin (leucovorin 5 mg oral tablet) 3 tab Oral (given by mouth) Every 6 hours Duration: 10 Doses Unchanged methotrexate (methotrexate 5 mg oral tablet) Unchanged metoprolol (metoprolol succinate 25 mg oral capsule, extended release) Unchanged predniSONE Tests Performed Lab Test Name Test Result Date/Time WBC 5.9 x10^3/mcL 11/05/2022 12:52 EDT RBC 4.0 x10^6/mcL 11/05/2022 12:52 EDT Hgb 12.5 g/dL 11/05/2022 12:52 EDT Hct 37.8 % 11/05/2022 12:52 EDT MCV 94.7 fL 11/05/2022 12:52 EDT MCH 31.3 pg 11/05/2022 12:52 EDT MCHC 33.1 g/dL 11/05/2022 12:52 EDT RDW-CV 13.2 % 11/05/2022 12:52 EDT Platelets 200 x10^3/mcL 11/05/2022 12:52 EDT Neutro Auto 67.0 % 11/05/2022 12:52 EDT Lymph Auto 23.6 % 11/05/2022 12:52 EDT [place] Auto 7.1 % 11/05/2022 12:52 EDT Eos, Auto 1.5 % 11/05/2022 12:52 EDT Basophil Auto 0.5 % 11/05/2022 12:52 EDT Imm Gran Auto 0.3 % 11/05/2022 12:52 EDT Neutro Absolute 4.0 x10^3/mcL 11/05/2022 12:52 EDT Sodium Level 140 mmol/L 11/05/2022 12:52 EDT Potassium Level 4.2 mmol/L 11/05/2022 12:52 EDT Chloride Level 105 mmol/L 11/05/2022 12:52 EDT CO2 26 mmol/L 11/05/2022 12:52 EDT Alk Phos 57 unit/L 11/05/2022 12:52 EDT AST 28 unit/L 11/05/2022 12:52 EDT ALT 50 unit/L 11/05/2022 12:52 EDT BUN 20 mg/dL 11/05/2022 12:52 EDT Glucose Level 96 mg/dL 11/05/2022 12:52 EDT Creatinine Level 0.85 mg/dL 11/05/2022 12:52 EDT eGFR AA 75 11/05/2022 12:52 EDT eGFR Non-AA 75 11/05/2022 12:52 EDT Calcium Level 9.6 mg/dL 11/05/2022 12:52 EDT Protein Total 7.2 g/dL 11/05/2022 12:52 EDT Albumin Level 4.0 g/dL 11/05/2022 12:52 EDT Bilirubin Total 0.3 mg/dL 11/05/2022 12:52 EDT TSH 2.366 mcIntlUnit/mL 11/05/2022 12:52 EDT Patient/Kosher Inspector Signature Patient Name:KEYANNA CROUCH I have received this information and my questions have been answered. Patient/Kosher Inspector Name: Patient/Kosher Inspector Signature: Relationship to Patient: Witness Name/Signature: Date: Electronically Signed on: 11/05/2022 15:22 EDTSigned by:TAWANA Emergency department Note * Tamar Keen: PERFORM Event Display: ED Notes Authored Date: * Tamar Keen: PERFORM Event Display: ED Notes Authored Date: Patient Care team information Care Team Personnel Name: Juaquin Palacio MD Position: No Access Member Role: Primary Care Physician Address: Address: [address] [address]- [place] Name: Familia Elizondo RN Position: Nurse Member Role: ED Nurse Name: Gabriel Park MD Position: Physician Member Role: ED Physician Address: Address: [address] [place] [address] [address] [place] [address] [place] Care Team Related Persons Name: ANGEL CROUCH Address: Home Name: TAVARES CORREIA
--- OUTSIDE RECORDS SUMMARY | 2023-02-14 17:15 | XMS_ITS | Continuity of Care Document ---
Author Name Unknown Organization [facility] Address [address] [place] [address] Care Team Providers Care Army Ranger Name Role Phone Primeau Juaquin GUZMAN Primary Care Physician [facility] 10/[facility] - 10/05/[address] [address] Encounter Diagnosis Left ovarian cyst(Discharge Diagnosis) - 10/05/22 Discharge Disposition: Home or Self Care Attending Physician: Alex Buck MD Admitting Physician: Alex Buck MD Referring Physician: Alex Buck MD Allergies, Adverse Reactions, Alerts Substance Reaction Severity Status amoxicillin Unknown Active amoxicillin Unknown Active sulfa drugs Unknown Active sulfa drugs Urticaria Unknown Active Medications folic acid 0 Refill(s) Start Date: [...] Member Role: Primary Care Physician Address: Address: [place] [address]- Care Team Related Persons Name: ANGEL CROUCH Address: Home Name: TAVARES CORREIA Address: Home
[2023-02-14 20:06] LABS: Abs Immature Grans 0.01 10^3/uL (0.0-0.06); Absolute Basophil Count 0.07 10^3/uL (0.0-0.2); Absolute Eosinophil Count 0.14 10^3/uL (0.0-0.7); Absolute Lymphocyte Count 1.84 10^3/uL (1.2-3.4); Absolute Monocyte Count 0.68 10^3/uL (0.1-0.8); Absolute Neutrophil Count 5.09 10^3/uL (1.2-6.7); Basophils % 0.9; Eosinophils % 1.8; HCT 44.8 % (36.0-46.0); HGB 14.9 g/dL (11.2-15.7); Immature Grans % 0.1; Lymphocytes % 23.5; MCH 30.7 pg (27.0-33.0); MCHC 33.3 % (32.0-36.0); MCV 92 fL (80-95); MPV 9.4 fL (8.0-11.0); Monocytes % 8.7; Platelet Count 256 10^3/uL (130-400); RBC 4.85 10^6/uL (3.93-5.22); RDW 12.8 % (11.7-14.6); RDW-SD 43.6 fL; WBC 7.83 10^3/uL (4.4-10.8)
[2023-02-14 20:27] LABS: Anion Gap 8.2 mmol/L (3-11); BUN 25 mg/dL (7-18); C-Reactive Protein < 0.05 mg/dL (0.0-0.3); CO2 26.8 mmol/L (21.0-32.0); CREATININE 0.8 mg/dL (0.55-1.02); Calcium 9.1 mg/dL (8.5-10.1); Chloride 107 mmol/L (98-107); Estimated GFR 80.21 (mL/min/1.73m2); Glucose 109 mg/dL (74-106); Potassium 4.1 mmol/L (3.5-5.1); Sodium 142 mmol/L (136-145); TSH 1.58 uIU/mL (0.36-3.74)
== END 2023-02-14 17:13 | disposition home or self-care (01) ==
LOC: NCHCN 17:12
PROVIDERS: PCP Internal Medicine; Visit Provider Internal Medicine
DX: I10 Essential (primary) hypertension (principal); M35.3 Polymyalgia rheumatica
CPT/HCPCS: 80048; 84443; 85025; 86140

== ENCOUNTER → 2023-04-16 13:19 | Outpatient (BNVA) | payer MEDICARE, BC, SELFPAY | PROVIDERS: PCP Internal Medicine; Referring Provider Internal Medicine; Visit Provider Internal Medicine Cardiovascular Disease | DX: Z09 Encounter for follow-up examination after completed treatment for conditions other than malignant neoplasm (principal); Z86.79 Personal history of other diseases of the circulatory system | CPT/HCPCS: 99213 ==

== ENCOUNTER 2024-02-25 13:07 | Outpatient (REF) | payer MEDICARE, BC, SELFPAY ==
[2024-02-25 20:08] LABS: HCT 48.3 % (36.0-46.0); HGB 15.6 g/dL (11.2-15.7); MCH 29.9 pg (27.0-33.0); MCHC 32.3 % (32.0-36.0); MCV 93 fL (80-95); MPV 9.3 fL (8.0-11.0); Platelet Count 246 10^3/uL (130-400); RBC 5.21 10^6/uL (3.93-5.22); RDW 12.6 % (11.7-14.6); RDW-SD 43.2 fL; WBC 8.83 10^3/uL (4.4-10.8)
[2024-02-25 20:31] LABS: Anion Gap 6.8 mmol/L (3-11); BUN 21 mg/dL (7-18); C-Reactive Protein 0.68 mg/dL (<or=0.5); CO2 29.2 mmol/L (21.0-32.0); CREATININE 0.8 mg/dL (0.55-1.02); Chloride 103 mmol/L (98-107); Estimated GFR 79.71 (mL/min/1.73m2); Glucose 109 mg/dL (74-106); Potassium 4.7 mmol/L (3.5-5.1); Sodium 139 mmol/L (136-145)
== END 2024-02-25 13:08 | disposition home or self-care (01) ==
LOC: NCHCN 13:07
PROVIDERS: PCP Internal Medicine; Visit Provider Internal Medicine
DX: I10 Essential (primary) hypertension (principal); M35.3 Polymyalgia rheumatica
CPT/HCPCS: 80048; 85027; 84443; 86140

== ENCOUNTER 2024-08-25 15:09 | Outpatient (REF) | payer MEDICARE, BC, SELFPAY ==
[2024-08-25 19:24] LABS: ESR 7 mm/hr (0-30)
[2024-08-25 19:36] LABS: C-Reactive Protein < 0.50 mg/dL (<or=0.5)
[2024-08-26 20:29] LABS: CA 125 11 U/mL (<30)
[2024-08-26 20:31] LABS: HIV-1/2 Ag & Ab Screen Negative (Negative)
[2024-08-26 20:32] LABS: Hepatitis C Ab w Rflx HCV PCR Negative (Negative)
== END 2024-08-25 15:10 | disposition home or self-care (01) ==
LOC: NCHCN 15:09
PROVIDERS: PCP Internal Medicine; Visit Provider Internal Medicine
DX: I10 Essential (primary) hypertension (principal); N83.209 Unspecified ovarian cyst, unspecified side; Z00.00 Encounter for general adult medical examination without abnormal findings
CPT/HCPCS: 85652; 86304; 86803; 87389; 86140